=== PATIENT | male | born 1935 | race Caucasian/White ===

== ENCOUNTER 2024-04-17 10:52 | Inpatient (IN) | payer MEDICARE, OTHER, SELFPAY ==
[2024-04-17] VITALS (12 sets, daily range): BP systolic 115–141; BP diastolic 45–62; PULSE 48–92; RESP 14–20; TEMP 36.4–36.7; O2SAT 94–99; BMI 22.8
--- NOTE | ~2024-04-17 | CT_ITS ---
CT cervical spine wo con Ordering provider: Suleiman Dai MD History: . fall . Comparison: None. Technique: CT of the cervical spine was performed without contrast. Sagittal and coronal reformatted images were also obtained and reviewed. Automated exposure control and iterative reconstruction sg hnique were employed. The dose-length product was 244.17 mGy-cm. FINDINGS: VERTEBRAE: No subluxation or acute fracture. The occipital condyles are intact. DISC SPACES: Narrowing of the disc C3-C4, C4-C5 and C6-C7. Multilevel facet joint disease. Multilevel uncovertebral joint osteoarthritic changes. Narrowing of the foramina at the level of C3-C4, C4-C5 and C5-C6. PARASPINOUS SOFT TISSUES: Bilateral carotid atherosclerotic changes. IMPRESSION: No acute osseous abnormality cervical spine. Multilevel degenerative disc disease. Reviewed, dictated and finalized at location A. STRIAL FABRIC CUTTER
--- NOTE | ~2024-04-17 | XR_ITS ---
EXAMINATION: XR knee RT 3V DATE: 04/17/2024 14:03 INDICATION: Right knee pain post fall TECHNIQUE: Anteroposterior, oblique and crosstable lateral views of the right knee were obtained COMPARISON: None. FINDINGS: Alignment is normal. No fracture. Osteoarthritis at the right knee with at least moderate joint spac e narrowing in the medial compartment the severity of which can be underestimated on nonweightbearing imaging. Small enthesophytes at the proximal pole of the patella. No joint effusion/layering lipohem arthrosis. Soft tissues are unremarkable. IMPRESSION: 1. No right knee joint effusion or acute osseous abnormality. 2. 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 Reviewed, dictated and finalized at location B. NG VALIDATOR IMPRESSION: 1. No right knee joint effusion or acute osseous abnormality. 2. 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
--- NOTE | ~2024-04-17 | CT_ITS ---
EXAMINATION: CT chest abdomen pelvis w con DATE: 04/17/2024 15:32 INDICATION: Analyzed weakness. Leukocytosis. TECHNIQUE: Computed tomography (CT) of the chest, abdomen, and pelvis was performed with 100 mL Omnip aque-350 intravenous contrast. Automated exposure control and iterative reconstruction technique were employed. The dose-length product was 754.71 mGy-cm. COMPARISON: None FINDINGS: CHEST CT: Mild emphysema with moderate biapical pleural-parenchymal scarring. There are numerous small nodular groundglass opacities and larger solid nodular opacities in both lungs with dependent predominance in the bilateral lower lobes and to lesser degree in the right middle lobe and inferior anterior segmen t of the right upper lobe consistent with multifocal pneumonia. There is also bibasilar atelectasis a long the diaphragm. Small amount of mucus is seen in the left mainstem bronchus. No pleural effusion. Heart size is normal. Atherosclerotic coronary artery calcifications. No pericardial effusion. Thora cic aorta is normal in caliber with no dissection. No pathologically enlarged thoracic lymphadenopath y. Thoracic dextroscoliosis with bridging osteophytes at multiple levels consistent with diffuse idio pathic skeletal hyperostosis (DISH). There are a few healing right rib fractures. ABDOMEN/PELVIS CT: The gallbladder is dilated to 6.1 cm with multiple tiny gallstones in the dependent gallbladder. Ther e is however no evident gallbladder wall thickening or pericholecystic inflammatory stranding to more specifically suggest acute cholecystitis. Liver, spleen, pancreas, bilateral adrenal glands and righ t kidney are normal. 3.6 cm cyst at the mid left kidney. There is moderate colonic diverticulosis wit h a sigmoid predominance. There is no adjacent inflammatory change to suggest diverticulitis. Small bowel and appendix are normal. Bladder is normal. No abscess or free intraperitoneal gas or fluid. No pathologically enlarged abdominal or pelvic lymphadenopathy. Mild thoracic spondylosis with chronic appearing mild likely physiologic anterior wedging at T11-L1. IMPRESSION: 1. Numerous dependent predominant solid and more groundglass nodular opacities in both lungs with dis tribution and appearance favoring multifocal pneumonia over metastatic disease. Recommend radiologic follow-up to resolution. 2. Cholelithiasis within the dilated gallbladder but without evident wall thickening or pericholecyst ic inflammatory stranding to more specifically suggest acute cholecystitis. Correlate for Renteria sign and with HIDA scan if clinically indicated. 3. Diverticulosis. Reviewed, dictated and finalized at location B. NCED PRACTICE NURSE IMPRESSION: 1. Numerous dependent predominant solid and more groundglass nodular opacities in both lungs with distribution and appearance favoring multifocal pneumonia ov er metastatic disease. Recommend radiologic follow-up to resolution. 2. Cholelithiasis within the dilated gallbladder but without evident wall thick ening or pericholecystic inflammatory stranding to more specifically suggest ac darcy cholecystitis. Correlate for Renteria sign and with HIDA scan if clinically i ndicated. 3. Diverticulosis.
--- NOTE | ~2024-04-17 | XR_ITS ---
EXAMINATION: XR ribs RT 2V w CXR 2V DATE: 04/17/2024 15:11 INDICATION: Right rib pain. Shortness of breath. Fall. TECHNIQUE: Frontal and lateral views of the chest and 2 views on 4 radiograph of the right ribs were obtained. COMPARISON: None. FINDINGS: CHEST TWO VIEWS: A calcified right lung nodule is consistent with old granulomatous disease. There ar e airspace opacities in the lower lung zones. No pleural effusion or pneumothorax. The heart size is normal. There is mild chronic anterior wedging of multiple lumbar vertebral bodies. RIGHT RIBS: There are old healed right rib fractures. IMPRESSION: 1. Airspace opacities in the lower lung zones, consistent with atelectasis/scarring versus pneumonia. 2. No rib fracture. Reviewed, dictated and finalized at location A. NEERING DEPARTMENT CHAIR IMPRESSION: 1. Airspace opacities in the lower lung zones, consistent with atelectasis/scar ring versus pneumonia. 2. No rib fracture.
--- NOTE | ~2024-04-17 | CT_ITS ---
EXAMINATION: CT brain wo con DATE: 04/17/2024 11:55 INDICATION: Fall. TECHNIQUE: Computed tomography (CT) of the head was performed without intravenous contrast. The mA wa s adjusted according to patient size. Iterative reconstruction technique was employed. The dose-lengt h product was 605.33 mGy-cm. COMPARISON: None FINDINGS: There are scattered areas of low attenuation in the cerebral white matter, which is within normal limits for the patient's age. There is a small old infarct in the left frontal lobe deep white matter. There is no intracranial hemorrhage, acute infarction, or abnormal intracranial mass lesion. The ventricles are normal in size. There is mucosal thickening in the paranasal sinuses. There are l ikely changes of ocular lens replacement surgeries. The mastoid air cells are normal. IMPRESSION: 1. 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 Reviewed, dictated and finalized at location A. CIPAL DATABASE DEVELOPER
--- NOTE | ~2024-04-17 | XR_ITS ---
HISTORY: fall, tailbone pain COMPARISON: None TECHNIQUE: 2 views of the sacrum/coccyx were performed FINDINGS: Diffuse bony demineralization and significant degenerative disease is identified for which cross-sect ional imaging is recommended for further evaluation. IMPRESSION: Limited examination secondary to advanced age and bone density for which cross-sectional imaging is recommended (if not already ordered) Reviewed, dictated and finalized at location A. ASSEMBLER
--- NOTE | 2024-04-17 13:47 | ED_ITS ---
HPI - Fall General Chief Complaint: Fall Stated Complaint: fall lay on floor 6 hours Time Seen by Provider: 04/17/24 13:06 Source: patient, family and RN notes reviewed Mode of arrival: EMS Limitations: no limitations History of Present Illness HPI Narrative: Patient presents with report of right knee pain after falling last night. Patient lives by himself recently after his was placed in nursing given her declining condition. He has declined as well per his son who notes that he has had recurrent falls including a few weeks ago, last week, and yesterday. Patient denies any loss of consciousness. He has been short of breath but denies chest pain. He does note some when he initially calls hip pain although he is pointing to his lateral chest/ribs. He had been complaining of pain in this area after falling a few weeks ago but he did not present to hospital at that time. Patient is complaining of being thirsty and having a dry mouth. He laid on the floor overnight because he states he was in too much pain as well as too weak to get up. Estimated time on the floor was approximately 6 hours. He was found this morning. He has noticed some swelling in his bilateral legs over the past 24 hours. He is also complaining of tailbone pain although he believes that he has an infection there. He also has a skin tear on the elbow. He states he was trying to go to the bathroom at the time. Patient has less upper body strength that he used to. He denies hitting his head. It is reported that he has not been taking anticoagulation but it is unclear whether he was prescribed this previously. Patient was using a walker at the time but he states that both legs gave out. Per patient's son, patient had an appointment coming up on May 17, [address] Alves, orthopedic surgery regarding bilateral knee pain/issues although has never seen this physician before. Related Data Home Medications ?Medication ?Instructions ?Recorded ?Confirmed ?Last Taken ?Type losartan 50 mg tablet 50 mg PO DAILY 04/17/24 04/17/24 Unknown History Allergies Allergy/AdvReac Type Severity Reaction Status Date / Time shrimp Allergy Nausea and Verified 04/17/24 11:03 Vomiting iodine AdvReac Nausea and Verified 04/17/24 17:08 Vomiting [facility] Past Medical History Medical History (Updated 04/17/24 @ 22:46 by Nataliia Duncan PA-C) Hyperlipidemia Hypertension Coronary artery disease Cancer, epiglottis status post resection and radiation Surgical History Surgical History (Updated 04/17/24 @ 22:42 by Nataliia Duncan PA-C) History of cataract extraction History of throat surgery resection of malignancy of epiglottis Family History Family History Father Myocardial infarct Mother Pneumonia Social History Social History (Updated 04/17/24 @ 22:42 by Nataliia Duncan PA-C) Social History: Surrogate medical decision maker: Ronnie Evans, spouse. Code status: Full code. Smoking packs per day: 2 Smoking cigarettes per day: 40.0 Years smoked: 50 Smoking pack-years: 100.00 Smoking status: Former smoker Alcohol intake: never Substance use: never Do You Feel Safe in your Home?: No Lack of Transportation: No Lack of Food: Never True Current Housing: I Have Housing Concerned About Future Housing: No Difficulty Paying Gas/Electric Bills: No Difficulty Paying for Meds: No Currently Unemployed: No Education: High School Diploma/GED Difficulty w/ Childcare or Family Care: No Living arrangements: alone Spiritual care concerns: No Exam 2 Narrative: GENERAL: Well-appearing, well-nourished, and in no acute distress. HEAD: Normocephalic, atraumatic. EYES: Non injected, non icteric ENT: Nares clear, no rhinorrhea or epistaxis. Dry mucous membranes. NECK: Supple. CHEST: Speaking in full sentences. No respiratory distress. HEART: Regular rate and rhythm. . ABDOMEN: Soft, nondistended. No tenderness to palpation. Renteria sign negative. EXTREMITIES: Normal range of motion. 1+ bilateral lower extremity edema. Skin tear on the left elbow/forearm. No marked effusion of bilateral knees. SKIN: Warm, dry. Stage II sacral decubitus ulcer. Dry skin elsewhere, flaky. NEURO: No focal deficits. Alert and oriented x3. PSYCH: Normal mood and affect. Course Vital Signs Vital signs: Vital Signs Temperature 97.6 F 04/17/24 10:56 Pulse Rate 80 04/17/24 10:56 Respiratory Rate 18 04/17/24 10:56 Blood Pressure 119/46 L 04/17/24 10:56 Pulse Oximetry 94 04/17/24 10:56 Oxygen Delivery Room Air 04/17/24 10:56 Temperature 97.9 F 04/18/24 08:00 Pulse Rate 77 04/18/24 08:00 Respiratory Rate 16 04/18/24 08:00 Blood Pressure 138/44 L 04/18/24 08:00 Pulse Oximetry 98 04/18/24 08:00 Oxygen Delivery Nasal Cannula 04/18/24 03:50 Oxygen Flow Rate 2 04/18/24 03:50 MDM - Fall MDM Narrative Medical decision making narrative: Patient presents after a fall occurring last night after which he laid on the floor for approximately 6 hours. He is complaining of right knee pain. In the emergency department he is afebrile with acceptable vital signs. The diastolic blood pressure is low but the mean arterial pressure is 70 mmHg and blood pressure is improved on repeat assessment. 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 Although patient has lower extremity edema, he appears very dry and dehydrated on exam. Will give 1 L IV fluid bolus in addition acetaminophen for pain. CPK slightly elevated although not to a degree to suggest of rhabdomyolysis. Unable to obtain ortho stats given patient is 2 weeks to move his legs in bed. Therefore, also unable to perform assessment of ability to walk. For this reason, he will require admission for PT/OT evaluation and possible placement. Patient has a marked white count greater than 43,000. Will proceed with CT imaging chest abdomen pelvis. Also has a normocytic anemia and thrombocytosis, no prior for comparison. He has a slight azotemia although creatinine is normal. BNP elevated, no prior for comparison. Concern for acute versus acute on chronic heart failure. Only active medication per review of home medication database is losartan. Patient has evidence of an NSTEMI based on elevated troponin. A 3 hour troponin level and aspirin ordered. Patient has an allergy listed to iodine and shrimp both of which cause nausea and vomiting however states that he has received CT imaging contrast before. He has a multifocal pneumonia. There is questionable finding regarding the gallbladder however he has no abdominal pain including Renteria sign negative. Will start ceftriaxone and azithromycin. Urinalysis without concern for infection. Troponin remains elevated but down trending. Discussed the results of patient's workup thus far with him as well as his grandson who has now arrived at bedside (from out of town, the [place] area). Verifies understanding of the plan to be admitted and that he may have rehabilitation needs. He does stated this time that he has noticed that he was short of breath today. Denies any allergies to any antibiotics. Patient discussed with on-call hospitalist CARLOTA Marin. Will be IMU bed given elevated troponin. Patient confirms code status is full code in that he would want resuscitation attempted, although if he lived/was brought back, would not want to live as a vegetable. Differential Diagnosis Differential diagnosis: Likely other (Deconditioning, generalized weakness, acute viral syndrome, acute heart failure, fracture/dislocation, rhabdomyolysis, electrolyte abnormalities, intracranial hemorrhage, pneumonia, rib fracture) Medical Records Attestation: I reviewed the patient's medical records. Medical records narrative: Attempted to but no prior record in the EMR Lab Data Attestation: I reviewed the patient's lab results. 04/18/24 04:29 04/18/24 04:29 Labs: Lab Results 04/17/24 04/17/24 04/17/24 Range/Units 13:52 15:52 16:42 WBC 43.8 H (4.5-10.0) K/mm3 RBC 3.95 L (4.6-6.20) M/mm3 Hgb 11.1 L (14.0-18.0) g/dL Hct 35.9 L (42.0-52.0) % MCV 90.9 (80-100) fl MCH 28.1 (26-34) pg MCHC 30.9 L (32-36) g/dl RDW 15.1 H (11.5-14.5) % Plt Count 389 H (150-375) k/mm3 MPV 10.9 H (7.4-10.4) fl Immature Gran % (Auto) Not Reportable Neut % (Auto) Not Reportable Lymph % (Auto) Not Reportable [place] % (Auto) Not Reportable Eos % (Auto) Not Reportable Baso % (Auto) Not Reportable Lymph # (Auto) Not Reportable [place] # (Auto) Not Reportable Eos # (Auto) Not Reportable Baso # (Auto) Not Reportable Abs Immat Gran (auto) Not Reportable Absolute Neuts (auto) Not Reportable Absolute Nucleated RBC Not Reportable Total Counted 100 Neutrophils % (Manual) 85 H (46-73) % Band Neutrophils % 10 H (0-6) % Monocytes % (Manual) 3 (3-9) % Basophils % (Manual) 2 H (0-1) % Nucleated RBC % Not Reportable Abs Neuts (Manual) 41.61 H (1.3-6.7) K/mm3 Abs Monocytes (Manual) 1.31 H (0.1-0.90) K/mm3 Abs Basophils (Manual) 0.87 H (0.0-0.1) K/mm3 Platelet Estimate Slightly increased (Adequate) Hypochromasia 1+ Anisocytosis 2+ Schistocytes None seen D-Dimer 2.46 H (<0.48) ug/mL Sodium 138 (137-145) mmol/L Potassium 4.0 (3.4-5.0) mmol/L Chloride 99 (98-107) mmol/L Carbon Dioxide 32 H (22-30) mmol/L Anion Gap 7 (4-12) mmol/L BUN 25 H (9-20) mg/dL Creatinine 0.57 L (0.7-1.3) mg/dL Estim Creat Clear Calc Not Reportable Estimated GFR > 60 (59 - ) Glucose 100 (65-110) mg/dL Lactic Acid 1.2 (0.7-2.0) mmol/L Calcium 9.2 (8.4-10.2) mg/dL Magnesium 2.0 (1.6-2.3) mg/dL Total Bilirubin 1.3 (0.2-1.3) mg/dL AST 41 (17-59) U/L ALT 23 (6-50) U/L Alkaline Phosphatase 95 (38-126) U/L Total Creatine Kinase 308 H (55-170) U/L Troponin I 0.065 H* (0.000-0.034) ng/mL NT-Pro-B Natriuret Pep 4060 H (19.9-100) pg/mL Total Protein 7.0 (6.3-8.2) g/dL Albumin 3.6 (3.5-5.1) g/dL Urine Color Dark yellow (Yellow) Urine Appearance Cloudy H (Clear) Urine pH 5.5 (5.0-9.0) Ur Specific [place] 1.030 (1.001-1.035) Urine Protein 2+ H (Negative) mg/dL Urine Glucose (UA) Negative (Negative) mg/dL Urine Ketones Trace H (Negative) mg/dL Ur Blood (Man) Trace (Negative) Urine Nitrate Negative (Negative) Urine Bilirubin 1+ H (Negative) Urine Urobilinogen 1.0 (<2.0) mg/dL Leukocyte Esterase Rfl Negative (Negative) MARIA ISABEL/UL Urine RBC 11-20 H (0-2) /hpf Urine WBC 0-5 (0-3) /hpf Ur Squamous Epith Cells Occasional (Few) /hpf Urine Bacteria None seen /hpf Urine Casts 11-20 Hyaline Casts Present (None) /lpf Influenza A (RT-PCR) Negative (Negative) Influenza B (RT-PCR) Negative (Negative) RSV (RT-PCR) Negative (Negative) SARS-CoV-2 RNA (RT-PCR) Negative (Negative) 04/17/24 Range/Units 16:56 WBC (4.5-10.0) K/mm3 RBC (4.6-6.20) M/mm3 Hgb (14.0-18.0) g/dL Hct (42.0-52.0) % MCV (80-100) fl MCH (26-34) pg MCHC (32-36) g/dl RDW (11.5-14.5) % Plt Count (150-375) k/mm3 MPV (7.4-10.4) fl Immature Gran % (Auto) Neut % (Auto) Lymph % (Auto) [place] % (Auto) Eos % (Auto) Baso % (Auto) Lymph # (Auto) [place] # (Auto) Eos # (Auto) Baso # (Auto) Abs Immat Gran (auto) Absolute Neuts (auto) Absolute Nucleated RBC Total Counted Neutrophils % (Manual) (46-73) % Band Neutrophils % (0-6) % Monocytes % (Manual) (3-9) % Basophils % (Manual) (0-1) % Nucleated RBC % Abs Neuts (Manual) (1.3-6.7) K/mm3 Abs Monocytes (Manual) (0.1-0.90) K/mm3 Abs Basophils (Manual) (0.0-0.1) K/mm3 Platelet Estimate (Adequate) Hypochromasia Anisocytosis Schistocytes D-Dimer (<0.48) ug/mL Sodium (137-145) mmol/L Potassium (3.4-5.0) mmol/L Chloride (98-107) mmol/L Carbon Dioxide (22-30) mmol/L Anion Gap (4-12) mmol/L BUN (9-20) mg/dL Creatinine (0.7-1.3) mg/dL Estim Creat Clear Calc Estimated GFR (59 - ) Glucose (65-110) mg/dL Lactic Acid (0.7-2.0) mmol/L Calcium (8.4-10.2) mg/dL Magnesium (1.6-2.3) mg/dL Total Bilirubin (0.2-1.3) mg/dL AST (17-59) U/L ALT (6-50) U/L Alkaline Phosphatase (38-126) U/L Total Creatine Kinase (55-170) U/L Troponin I 0.055 H* (0.000-0.034) ng/mL NT-Pro-B Natriuret Pep (19.9-100) pg/mL Total Protein (6.3-8.2) g/dL Albumin (3.5-5.1) g/dL Urine Color (Yellow) Urine Appearance (Clear) Urine pH (5.0-9.0) Ur Specific [place] (1.001-1.035) Urine Protein (Negative) mg/dL Urine Glucose (UA) (Negative) mg/dL Urine Ketones (Negative) mg/dL Ur Blood (Man) (Negative) Urine Nitrate (Negative) Urine Bilirubin (Negative) Urine Urobilinogen (<2.0) mg/dL Leukocyte Esterase Rfl (Negative) MARIA ISABEL/UL Urine RBC (0-2) /hpf Urine WBC (0-3) /hpf Ur Squamous Epith Cells (Few) /hpf Urine Bacteria /hpf Urine Casts Hyaline Casts (None) /lpf Influenza A (RT-PCR) (Negative) Influenza B (RT-PCR) (Negative) RSV (RT-PCR) (Negative) SARS-CoV-2 RNA (RT-PCR) (Negative) Imaging Data Attestation: I personally reviewed and interpreted this imaging study as follows: My impression: CT scan is concerning for bilateral multifocal pneumonia on my independent interpretation Radiologist's impression: Impressions Head CT 04/17/24 11:55 IMPRESSION: 1. 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 Cervical Spine CT 04/17/24 11:56 IMPRESSION: No acute osseous abnormality cervical spine. Multilevel degenerative disc disease. Knee X-Ray 04/17/24 14:04 IMPRESSION: 1. No right knee joint effusion or acute osseous abnormality. 2. 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 Ribs w/Chest X-Ray 04/17/24 15:15 IMPRESSION: 1. Airspace opacities in the lower lung zones, consistent with atelectasis/scarring versus pneumonia. 2. No rib fracture. Sacrum and Coccyx X-Ray 04/17/24 15:16 IMPRESSION: Limited examination secondary to advanced age and bone density for which cross-sectional imaging is recommended (if not already ordered) Chest/Abdomen/Pelvis CT 04/17/24 15:42 IMPRESSION: 1. Numerous dependent predominant solid and more groundglass nodular opacities in both lungs with distribution and appearance favoring multifocal pneumonia over metastatic disease. Recommend radiologic follow-up to resolution. 2. Cholelithiasis within the dilated gallbladder but without evident wall thickening or pericholecystic inflammatory stranding to more specifically suggest acute cholecystitis. Correlate for Renteria sign and with HIDA scan if clinically indicated. 3. Diverticulosis. ECG Data EKG #1: Attestation: I personally reviewed and interpreted this ECG as follows: ECG completion date: 04/17/24 ECG completion time: 14:22 Prior ECG tracings: not available for review (No prior for comparison) Interpretation: Normal sinus rhythm at a rate of 70 beats per minute. There are frequent premature complexes. In complexes were P-waves are present, it is a prolonged VT interval consistent with a first-degree AV block. QRS 151. QT/QTC 418/451. RBBB given QRS greater [id number]; RSR' M-shaped pattern in V1-V3; wide, slurred S wave in lateral leads (I, aVL, V5-6). Left posterior fascicular block with prolonged QRS duration, rS complexes in leads I and aVF (small R waves and deep S waves), qR complexes in inferior leads, and right axis deviation (inferior leads positive with negative I and aVL. Good R-wave progression across the precordial leads. Questionable T-wave inversion versus biphasic T- wave in V3 however upright and normal in contiguous leads V4.. 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
[2024-04-17] MEDS: ACETAMINOPHEN 325 MG TABLET 650 MG PO (14:07)
--- NOTE | 2024-04-17 14:08 | ECG_ITS ---
Test Date: 2024-04-17 14:22:05 Measurements Intervals [place] Rate: 78 P: 139 DC: 240 QRS: 115 QRSD: 151 T: 119 QT: 418 QTc: 476 Interpretive Statements SINUS RHYTHM WITH FIRST DEGREE AV BLOCK WITH FREQUENT SUPRAVENTRICULAR PREMATURE COMPLEXES RIGHT BUNDLE BRANCH BLOCK [120+ ms QRS DURATION, UPRIGHT V1, 40+ ms S IN I/aVL/V4/V5/V6] LEFT POSTERIOR FASCICULAR BLOCK [QRS AXIS > 109, INFERIOR Q] No previous ECG available for comparison Electronically Signed On 04-17-2024 21:48:14 TELEPHONE [employer] POWER OPERATOR by Courtney Verde M.D.
[2024-04-17] MEDS: SODIUM CHLORIDE 0.9% IV 1,000 ML 999 ML IV CONT (14:19)
[2024-04-17 14:23] LABS: Hematocrit 35.9 % (42.0-52.0); Hemoglobin 11.1 g/dL (14.0-18.0); Mean Corpuscular HGB Conc 30.9 g/dl (32-36); Mean Corpuscular Hemoglobin 28.1 pg (26-34); Mean Corpuscular Volume 90.9 fl (80-100); Mean Platelet Volume 10.9 fl (7.4-10.4); Platelet Count Result 389 k/mm3 (150-375); Red Blood Count 3.95 M/mm3 (4.6-6.20); Red Cell Distribution Width 15.1 % (11.5-14.5); White Blood Count 43.8 K/mm3 (4.5-10.0)
[2024-04-17 14:34] LABS: Alanine Aminotransferase 23 U/L (6-50); Albumin Level 3.6 g/dL (3.5-5.1); Alkaline Phosphatase 95 U/L (38-126); Anion Gap 7 mmol/L (4-12); Aspartate Amino Transferase 41 U/L (17-59); Bilirubin,Total 1.3 mg/dL (0.2-1.3); Blood Urea Nitrogen 25 mg/dL (9-20); Calcium 9.2 mg/dL (8.4-10.2); Carbon Dioxide 32 mmol/L (22-30); Chloride 99 mmol/L (98-107); Creatine Kinase 308 U/L (55-170); Estimated Glomerular Filt Rate > 60; Glucose 100 mg/dL (65-110); Sodium 138 mmol/L (137-145)
[2024-04-17 14:41] LABS: NT Pro B Type Natriuretic Pept 4060 pg/mL (19.9-100)
[2024-04-17 14:47] LABS: Band Neutrophils Percent 10 % (0-6); Basophils Absolute Manual 0.87 K/mm3 (0.0-0.1); Basophils Percent Manual 2 % (0-1); Monocytes Absolute Manual 1.31 K/mm3 (0.1-0.90); Monocytes Percent Manual 3 % (3-9); Neutrophils Absolute Manual 41.61 K/mm3 (1.3-6.7); Neutrophils Percent Manual 85 % (46-73); Total Cells Counted 100
[2024-04-17 14:48] LABS: Anisocytosis 2+; Platelet Estimate Slightly Increased (Adequate)
[2024-04-17 14:49] LABS: Hypochromasia 1+; Schistocytes None Seen
[2024-04-17 15:15] LABS: Troponin I 0.065 ng/mL (0.000-0.034)
[2024-04-17] MEDS: ASPIRIN 81 MG CHEWABLE TABLET 324 MG PO (15:36)
[2024-04-17 16:13] LABS: Lactic Acid Reflex 1.2 mmol/L (0.7-2.0)
[2024-04-17 16:37] LABS: D Dimer 2.46 ug/mL (<0.48)
[2024-04-17 17:32] LABS: Add Urine Microscopic? YES; Appearance Urine Cloudy (Clear); Bacteria Urine None Seen /hpf; Bilirubin Urine 1+ (Negative); Blood Urine Trace (Negative); Color Urine Dark Yellow (Yellow); Glucose Urine UA Negative (Negative); Hyaline Casts Urine Present /lpf; Ketones Urine Trace mg/dL (Negative); Leukocyte Esterase Ur Negative LEU/UL (Negative); Nitrate Urine Negative (Negative); Protein Urine 2+ mg/dL (Negative); Squamous Epithelial Cell Urine Occasional /hpf (Few); WBC Urine 0-5 /hpf (0-3); pH Urine 5.5 (5.0-9.0)
[2024-04-17 17:39] LABS: Troponin I 0.055 ng/mL (0.000-0.034)
[2024-04-17 18:06] LABS: Influenza A QL RT-PCR Negative (Negative); Influenza B QL RT-PCR Negative (Negative); RSV RNA, RT-PCR Negative (Negative); SARS-CoV-2 RNA PCR Negative (Negative)
[2024-04-17] MEDS: AZITHROMYCIN 500 MG/NS 250 ML 500 MG/250 ML BAG 250 MG IVPB (18:27)
--- NOTE | 2024-04-17 18:35 | P.HP_ITS ---
H&P: HPI History of Present Illness Date/Time: 04/17/24 19:00 Chief Complaint: Fall. Narrative: This is an 88-year-old with coronary artery disease, hypertension, and hyperlipidemia who presented to the emergency department for evaluation after a fall. The patient provides the following history. He lives alone as his was recently placed in a retirement. Son reports that he has declined since that time. The patient tells me that he got up at about 01:00 to use the bathroom and his knees gave out, causing him to fall forward and landed on his knees. He was unable to get himself up but was able to crawl to the front door to unlock it as he knew his children were coming to check on him today. He denies antecedent symptoms prior to the fall and states it was purely mechanical. Specifically he denies feelings of lightheadedness, dizziness, syncope, near syncope, chest pain, and pleuritic pain. He also denies fever, chills, sweats, cold and flu symptoms, abdominal pain, nausea, vomiting, diarrhea, and dysuria. imaging showed findings concerning with pneumonia with further questioning he does report having a mild, nonproductive cough and shortness of breath with exertion the last couple of days. In the ED: He was afebrile on arrival with stable vital signs. Labs were significant for WBC count of 43.8 with 10% bands, hemoglobin 11.1, platelet 389, D-dimer 2.46, BUN 25, creatinine 0.57, total CK 308, troponin 0.065, proBNP 4060. Urinalysis was positive for 2+ protein, trace ketones, 1+ bilirubin, 11 to 20 RBC. He tested negative for influenza, RSV, and COVID. Nasal MRSA screening was negative. 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 Cervical spine CT showed no acute findings and noted multilevel degenerative disc disease. Chest and rib x-ray showed findings consistent with atelectasis/scarring versus pneumonia. CT of the chest, abdomen, and pelvis showed findings suspicious for multifocal pneumonia over metastatic disease and cholelithiasis with a dilated gallbladder but no wall thickening or pericholecystic inflammatory stranding. He was started on azithromycin and ceftriaxone for pneumonia and is being admitted in this setting for further treatment. Review of Systems Review of Systems: 12 systems were reviewed and are negative except for as per HPI. PMFSH Past Medical History Medical History (Updated 04/17/24 @ 22:46 by Nataliia Duncan PA-C) Hyperlipidemia Hypertension Coronary artery disease Cancer, epiglottis status post resection and radiation Surgical History Surgical History (Updated 04/17/24 @ 22:42 by Nataliia Duncan PA-C) History of cataract extraction History of throat surgery resection of malignancy of epiglottis Family History Family History Father Myocardial infarct Mother Pneumonia Social History Social History (Updated 04/17/24 @ 22:42 by Nataliia Duncan PA-C) Social History: Surrogate medical decision maker: Ronnie Evans, spouse. Code status: Full code. Smoking packs per day: 2 Smoking cigarettes per day: 40.0 Years smoked: 50 Smoking pack-years: 100.00 Smoking status: Former smoker Alcohol intake: never Substance use: never Do You Feel Safe in your Home?: No Lack of Transportation: No Lack of Food: Never True Current Housing: I Have Housing Concerned About Future Housing: No Difficulty Paying Gas/Electric Bills: No Difficulty Paying for Meds: No Currently Unemployed: No Education: High School Diploma/GED Difficulty w/ Childcare or Family Care: No Living arrangements: alone Spiritual care concerns: No Meds Home Medications and Allergies Home Medications ?Medication ?Instructions ?Recorded ?Confirmed ?Type losartan 50 mg tablet 50 mg PO DAILY 04/17/24 04/17/24 History Allergies Allergy/AdvReac Type Severity Reaction Status Date / Time shrimp Allergy Nausea and Verified 04/17/24 11:03 Vomiting iodine AdvReac Nausea and Verified 04/17/24 17:08 Vomiting Vital Signs Vital Signs - 24 hr 04/17/24 10:56 04/17/24 12:30 04/17/24 14:00 Temperature 97.6 F Pulse Rate 80 82 77 Respiratory Rate 18 17 20 Blood Pressure 119/46 L 131/60 120/59 L Pulse Oximetry 94 94 95 Oxygen Delivery Room Air Oxygen Flow Rate 04/17/24 14:30 04/17/24 15:38 04/17/24 17:59 Temperature Pulse Rate 78 73 Respiratory Rate 20 20 Blood Pressure 141/58 H 123/53 L Pulse Oximetry 97 99 97 Oxygen Delivery Nasal Cannula Oxygen Flow Rate 2 04/17/24 17:59 Temperature Pulse Rate 66 Respiratory Rate 15 Blood Pressure 126/52 L Pulse Oximetry 97 Oxygen Delivery Oxygen Flow Rate Exam Narrative: General: Mildly ill-appearing male supine in bed in no acute distress. Weight: 76.4 kg. BMI: 22.8. HEENT: PERRL, EOMI. Sclera anicteric. Tacky mucous membranes. Neck: Supple. Respiratory: Respirations are nonlabored and he is speaking in full sentences. Lung sounds are coarse. Cardiovascular: Regular rate and rhythm with S1-S2. Gastrointestinal: Abdomen is soft, nontender, and nondistended with positive bowel sounds. Skin: Warm and dry. No rash or lesions on limited exam. Stage 2 decubitus ulcer. Extremities: No cyanosis or clubbing. 1+ pretibial edema bilaterally. Peripheral pulses intact. Musculoskeletal: No swelling of the knees. Range of motion intact. Neurological: Alert. Cranial nerves 2-12 are grossly intact. No gross focal deficits to casual conversation. Psychiatric: Pleasant and cooperative with appropriate mood and affect. H&P: Results Labs Labs: Short CBC 04/17/24 Range/Units 13:52 WBC 43.8 H (4.5-10.0) K/mm3 Hgb 11.1 L (14.0-18.0) g/dL Hct 35.9 L (42.0-52.0) % Plt Count 389 H (150-375) k/mm3 BMP 04/17/24 13:52 Sodium 138 Potassium 4.0 Chloride 99 Carbon Dioxide 32 H BUN 25 H Creatinine 0.57 L Glucose 100 Calcium 9.2 Cardiac Enzymes 04/17/24 04/17/24 Range/Units 13:52 16:56 Total Creatine Kinase 308 H (55-170) U/L Troponin I 0.065 H* 0.055 H* (0.000-0.034) ng/mL Liver Function 04/17/24 Range/Units 13:52 Total Bilirubin 1.3 (0.2-1.3) mg/dL AST 41 (17-59) U/L ALT 23 (6-50) U/L Alkaline Phosphatase 95 (38-126) U/L Albumin 3.6 (3.5-5.1) g/dL Urine 04/17/24 Range/Units 16:42 Urine Color Dark yellow (Yellow) Urine Appearance Cloudy H (Clear) Urine pH 5.5 (5.0-9.0) Ur Specific [place] 1.030 (1.001-1.035) Urine Protein 2+ H (Negative) mg/dL Urine Glucose (UA) Negative (Negative) mg/dL Impressions Head CT 04/17/24 11:55 IMPRESSION: 1. 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 Cervical Spine CT 04/17/24 11:56 IMPRESSION: No acute osseous abnormality cervical spine. Multilevel degenerative disc disease. Knee X-Ray 04/17/24 14:04 IMPRESSION: 1. No right knee joint effusion or acute osseous abnormality. 2. 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 Ribs w/Chest X-Ray 04/17/24 15:15 IMPRESSION: 1. Airspace opacities in the lower lung zones, consistent with atelectasis/scarring versus pneumonia. 2. No rib fracture. Sacrum and Coccyx X-Ray 04/17/24 15:16 IMPRESSION: Limited examination secondary to advanced age and bone density for which cross-sectional imaging is recommended (if not already ordered) Chest/Abdomen/Pelvis CT 04/17/24 15:42 IMPRESSION: 1. Numerous dependent predominant solid and more groundglass nodular opacities in both lungs with distribution and appearance favoring multifocal pneumonia over metastatic disease. Recommend radiologic follow-up to resolution. 2. Cholelithiasis within the dilated gallbladder but without evident wall thickening or pericholecystic inflammatory stranding to more specifically suggest acute cholecystitis. Correlate for Renteria sign and with HIDA scan if clinically indicated. 3. Diverticulosis. Assessment and Plan Assessment and plan (1) Multifocal pneumonia: Code(s): J18.9 - Pneumonia, unspecified organism Status: Acute (2) Elevated troponin: Code(s): R79.89 - Other specified abnormal findings of blood chemistry Status: Acute (3) Elevated creatine kinase: Code(s): R74.8 - Abnormal levels of other serum enzymes Status: Acute (4) Fall from ground level: Code(s): W18.30XA - Fall on same level, unspecified, initial encounter Status: Acute (5) Hypertension: Code(s): I10 - Essential (primary) hypertension Status: Acute Plan The patient presented to the emergency department for evaluation after ground level fall early this morning as detailed in HPI. Labs, imaging, EKG, and all reports were personally reviewed. Luckily he did not sustain any significant injuries and there were no acute findings on imaging. He does have evidence of multifocal pneumonia and has been started on azithromycin and ceftriaxone. Attempt sputum for culture. Check Legionella pneumococcal antigens as well as mycoplasma IgM. Once feeling better he will need PT / OT and may very well benefit from rehab before returning home. Troponin was mildly elevated though his EKG does not show any concerning ST segment changes. Continue to trend and obtain echocardiogram; he has no complaints of chest pain whatsoever. Total CK is also up a little bit, likely due to the fall and lying on the floor, but is not high enough to be diagnosis of rhabdomyolysis. Repeat in a.m.. Blood pressures were reviewed and they are stable. His home medications will be reviewed and resumed as appropriate. Findings and treatment plan were discussed with the patient. Questions were solicited and answered to satisfaction. The patient's medical management will be taken over by the hospitalist team in a.m. Quality VTE Prophylaxis VTE prophylaxis: pharmacologic ordered Hospitalist [facility] Advance Care Plan I have confirmed that the patient's Advanced Care Plan is present, code status is documented, or surrogate decision maker is listed in patient medical record.: Yes Medication Reconciliation I have utilized all available resources to obtain, update and review the patients current medications (includes all prescriptions, OTC, herbals, cannabis, and nutritional supplements).: Yes
[2024-04-17 19:14] LABS: MRSA (PCR) NOT DETECTED (NOT DETECTE)
[2024-04-17] MEDS: LACTATED RINGERS 1,000 ML 125 ML IV CONT ×2 (20:06→23:00)
--- NOTE | 2024-04-17 20:53 | ADMGEN ---
This patient, Haris Evans, was admitted to IMU Room 204-01. Patient/family oriented to hospital policies and general routines including ID bracelet, bed and alarms, visiting hours, pain management, procedures, bathroom and other care routines, personal items, smoking policy, room service/diet, and visiting hours. Information on how to activate the Rapid Response Team has been discussed. Patient/Family are encouraged to report perceived risks to care and to ask questions if they do not understand what they are told or what they should do.
[2024-04-18] VITALS (20 sets, daily range): BP systolic 102–138; BP diastolic 35–67; PULSE 56–102; RESP 14–20; TEMP 36.5–37; O2SAT 93–99; BMI 23.1
[2024-04-18 05:13] LABS: Hematocrit 31.9 % (42.0-52.0); Hemoglobin 9.7 g/dL (14.0-18.0); Mean Corpuscular HGB Conc 30.4 g/dl (32-36); Mean Corpuscular Volume 92.2 fl (80-100); Mean Platelet Volume 10.5 fl (7.4-10.4); Platelet Count Result 322 k/mm3 (150-375); Red Blood Count 3.46 M/mm3 (4.6-6.20); Red Cell Distribution Width 15.2 % (11.5-14.5); White Blood Count 27.6 K/mm3 (4.5-10.0)
[2024-04-18 05:31] LABS: Alanine Aminotransferase 18 U/L (6-50); Albumin Level 2.8 g/dL (3.5-5.1); Alkaline Phosphatase 80 U/L (38-126); Anion Gap 3 mmol/L (4-12); Aspartate Amino Transferase 33 U/L (17-59); Bilirubin,Total 0.7 mg/dL (0.2-1.3); Blood Urea Nitrogen 25 mg/dL (9-20); Calcium 8.3 mg/dL (8.4-10.2); Carbon Dioxide 31 mmol/L (22-30); Chloride 103 mmol/L (98-107); Creatine Kinase 91 U/L (55-170); Estimated CRCL calculation 80 ml/min; Estimated Glomerular Filt Rate > 60; Glucose 91 mg/dL (65-110); Magnesium 1.9 mg/dL (1.6-2.3); Potassium 3.8 mmol/L (3.4-5.0); Sodium 137 mmol/L (137-145)
[2024-04-18 06:02] LABS: Band Neutrophils Percent 3 % (0-6); Lymphocytes Absolute Manual 0.55 K/mm3 (1.1-4.5); Neutrophils Absolute Manual 27.04 K/mm3 (1.3-6.7); Neutrophils Percent Manual 95 % (46-73); Platelet Estimate Adequate (Adequate); Total Cells Counted 100
[2024-04-18 06:03] LABS: Anisocytosis 1+; Large Platelets Present; Schistocytes None Seen
[2024-04-18] MEDS: LACTATED RINGERS 1,000 ML 125 ML IV CONT ×2 (06:15→15:37)
--- NOTE | 2024-04-18 10:23 | P.PNIM_ITS ---
Progress Note: A&P Assessment and Plan (1) Multifocal pneumonia: Code(s): J18.9 - Pneumonia, unspecified organism Status: Acute (2) Elevated troponin: Code(s): R79.89 - Other specified abnormal findings of blood chemistry Status: Acute (3) Elevated creatine kinase: Code(s): R74.8 - Abnormal levels of other serum enzymes Status: Acute (4) Fall from ground level: Code(s): W18.30XA - Fall on same level, unspecified, initial encounter Status: Acute (5) Hypertension: Code(s): I10 - Essential (primary) hypertension Status: Acute Plan This is an 88-year-old male who presented to the ED after a fall. He has history of recurrent falls that started recently. He reports that he got up at about 1:00 a.m. to use the bathroom in his legs gave out causing him to fall forward and landed on his knees. He was unable to get himself up but able to crawl to the front door to unlock as he knew his children were coming to check on him. He denied any antecedent symptoms. No loss of consciousness. He states his legs gave away before you fall down. He reports some shortness of breath but no chest pain. He complained of right knee pain. After of fall last night he laid on the floor overnight as he was not able to get up. Estimated time on the floor was approximately 6 hours. He was found on the floor this morning and was brought to the ED for evaluation. She denied hitting his head. He had bilateral knee issues that he follows with Orthopedic surgery. In the ED: He was afebrile on arrival with stable vital signs. Labs were significant for WBC count of 43.8 with 10% bands, hemoglobin 11.1, platelet 389, D-dimer 2.46, BUN 25, creatinine 0.57, total CK 308, troponin 0.065, proBNP 4060. Urinalysis was positive for 2+ protein, trace ketones, 1+ bilirubin, 11 to 20 RBC. He tested negative for influenza, RSV, and COVID. Nasal MRSA screening was negative. 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 Cervical spine CT showed no acute findings and noted multilevel degenerative disc disease. Chest and rib x-ray showed findings consistent with atelectasis/scarring versus pneumonia. CT of the chest, abdomen, and pelvis showed findings suspicious for multifocal pneumonia over metastatic disease and cholelithiasis with a dilated gallbladder but no wall thickening or pericholecystic inflammatory stranding. He was started on azithromycin and ceftriaxone for pneumonia and is being admitted in this setting for further treatment. Multifocal pneumonia urine antigens ordered. Started on antibiotics. Leukocytosis improving. Influenza RSV COVID swab negative Elevated troponin EKG with nonspecific ST-T changes echo 04/18/2024 EF 55% grade 1 diastolic dysfunction mild MR. Mild TR. 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 Reports hurts in low back. Some cough. Denies any shortness of breath or chest pain. Review of Systems Review of Systems: All systems reviewed & are unremarkable except as noted in HPI and below Exam Narrative: General: Mildly ill-appearing male supine in bed in no acute distress. HEENT: PERRL, EOMI. Sclera anicteric. Tacky mucous membranes. Neck: Supple. Respiratory: Respirations are nonlabored and he is speaking in full sentences. Lung sounds are coarse. Cardiovascular: Regular rate and rhythm with S1-S2. Gastrointestinal: Abdomen is soft, nontender, and nondistended with positive bowel sounds. Skin: Warm and dry. No rash or lesions on limited exam. Stage 2 decubitus ulcer. Extremities: No cyanosis or clubbing. 1+ pretibial edema bilaterally. Peripheral pulses intact. Musculoskeletal: No swelling of the knees. Range of motion intact. Neurological: Alert. Cranial nerves 2-12 are grossly intact. No gross focal deficits to casual conversation. Psychiatric: Pleasant and cooperative with appropriate mood and affect. Objective Data Vital Signs Vital Signs: Vital Signs - 24 hr 04/17/24 10:56 04/17/24 12:30 04/17/24 14:00 Temperature 97.6 F Pulse Rate 80 82 77 Respiratory Rate 18 17 20 Blood Pressure 119/46 L 131/60 120/59 L Pulse Oximetry 94 94 95 Oxygen Delivery Room Air Oxygen Flow Rate 04/17/24 14:30 04/17/24 15:38 04/17/24 17:59 Temperature Pulse Rate 78 73 Respiratory Rate 20 20 Blood Pressure 141/58 H 123/53 L Pulse Oximetry 97 99 97 Oxygen Delivery Nasal Cannula Oxygen Flow Rate 2 04/17/24 17:59 04/17/24 20:24 04/17/24 20:54 Temperature 97.6 F Pulse Rate 66 92 48 L Respiratory Rate 15 14 Blood Pressure 126/52 L 116/57 L 118/45 L Pulse Oximetry 97 96 96 Oxygen Delivery Oxygen Flow Rate 04/17/24 21:02 04/17/24 22:00 04/17/24 23:17 Temperature 98.0 F Pulse Rate 83 79 73 Respiratory Rate 14 14 Blood Pressure 115/62 Pulse Oximetry 96 98 Oxygen Delivery Nasal Cannula Oxygen Flow Rate 2 04/17/24 23:47 04/18/24 00:00 04/18/24 02:00 Temperature Pulse Rate 61 65 99 Respiratory Rate 14 Blood Pressure Pulse Oximetry 98 Oxygen Delivery Nasal Cannula Oxygen Flow Rate 2 04/18/24 03:40 04/18/24 03:50 04/18/24 04:00 Temperature 97.7 F Pulse Rate 100 93 71 Respiratory Rate 20 20 Blood Pressure 124/50 L Pulse Oximetry 99 99 Oxygen Delivery Nasal Cannula Oxygen Flow Rate 2 04/18/24 06:00 04/18/24 08:00 04/18/24 08:32 Temperature 97.9 F Pulse Rate 79 77 Respiratory Rate 16 Blood Pressure 138/44 L Pulse Oximetry 98 Oxygen Delivery Nasal Cannula Oxygen Flow Rate 2 Intake/Output Intake/Output: Intake & Output 04/15/24 04/16/24 04/17/24 04/18/24 23:59 23:59 23:59 23:59 Intake Total 1300 1120 Output Total 350 Balance 1300 770 Meds/Results Medications: Active Medications Generic Name Dose Route Start Last Admin Trade Name Freq PRN Reason Stop Dose Admin Acetaminophen 650 mg 04/17/24 17:43 Acetaminophen 325 Mg Tablet PO Q4H PRN Mild Pain (1-3) or Fever Enoxaparin Sodium 40 mg 04/18/24 09:00 Enoxaparin 40 Mg/0.4 Ml Syringe SUB-Q DAILY [facility] Ceftriaxone Sodium 1 gm in 50 mls @ 100 mls/hr 04/18/24 18:00 Rocephin 1 Gm/Ns 50 Ml IVPB Q24H OLENA Azithromycin 500 mg in 250 mls @ 250 mls/hr 04/18/24 18:00 Zithromax IVPB Q24H OLENA Lactated Ringer's 1,000 mls @ 125 mls/hr 04/18/24 06:25 04/18/24 06:15 Lr - Lactated Ringers Iv IV CONT 125 mls/hr .Q8H OLENA Administration Losartan Potassium 50 mg 04/18/24 09:00 Losartan Potassium 50 Mg Tablet PO DAILY OLENA Ondansetron HCl 4 mg 04/17/24 17:43 Ondansetron Inj 4 Mg/2 Ml Vial IV PUSH Q4H PRN Nausea Perflutren Lipid Microsphere 0 ml 04/17/24 22:49 Perflutren Lipid Microspheres 1.5 Ml Vial Diluted To 10 Ml Total Volume IV PUSH 04/20/24 22:49 ONCE PRN adequate visualization Protocol Radiology Results: ITS Impressions Head CT 04/17/24 11:55 IMPRESSION: 1. 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 Cervical Spine CT 04/17/24 11:56 IMPRESSION: No acute osseous abnormality cervical spine. Multilevel degenerative disc disease. Knee X-Ray 04/17/24 14:04 IMPRESSION: 1. No right knee joint effusion or acute osseous abnormality. 2. 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 Ribs w/Chest X-Ray 04/17/24 15:15 IMPRESSION: 1. Airspace opacities in the lower lung zones, consistent with atelectasis/scarring versus pneumonia. 2. No rib fracture. Sacrum and Coccyx X-Ray 04/17/24 15:16 IMPRESSION: Limited examination secondary to advanced age and bone density for which cross-sectional imaging is recommended (if not already ordered) Chest/Abdomen/Pelvis CT 04/17/24 15:42 IMPRESSION: 1. Numerous dependent predominant solid and more groundglass nodular opacities in both lungs with distribution and appearance favoring multifocal pneumonia over metastatic disease. Recommend radiologic follow-up to resolution. 2. Cholelithiasis within the dilated gallbladder but without evident wall thickening or pericholecystic inflammatory stranding to more specifically suggest acute cholecystitis. Correlate for Renteria sign and with HIDA scan if clinically indicated. 3. Diverticulosis. Labs Labs: Laboratory Results - last 24 hr 04/17/24 04/17/24 04/17/24 13:52 15:52 16:42 WBC 43.8 H RBC 3.95 L Hgb 11.1 L Hct 35.9 L MCV 90.9 MCH 28.1 MCHC 30.9 L RDW 15.1 H Plt Count 389 H MPV 10.9 H Immature Gran % (Auto) Not Reportable Neut % (Auto) Not Reportable Lymph % (Auto) Not Reportable [place] % (Auto) Not Reportable Eos % (Auto) Not Reportable Baso % (Auto) Not Reportable Lymph # (Auto) Not Reportable [place] # (Auto) Not Reportable Eos # (Auto) Not Reportable Baso # (Auto) Not Reportable Abs Immat Gran (auto) Not Reportable Absolute Neuts (auto) Not Reportable Absolute Nucleated RBC Not Reportable Total Counted 100 Neutrophils % (Manual) 85 H Band Neutrophils % 10 H Lymphocytes % (Manual) Monocytes % (Manual) 3 Basophils % (Manual) 2 H Nucleated RBC % Not Reportable Abs Neuts (Manual) 41.61 H Abs Lymphs (Manual) Abs Monocytes (Manual) 1.31 H Abs Basophils (Manual) 0.87 H Platelet Estimate Slightly increased Large Platelets Hypochromasia 1+ Anisocytosis 2+ Schistocytes None seen D-Dimer 2.46 H Sodium 138 Potassium 4.0 Chloride 99 Carbon Dioxide 32 H Anion Gap 7 BUN 25 H Creatinine 0.57 L Estim Creat Clear Calc Not Reportable Estimated GFR > 60 Glucose 100 Lactic Acid 1.2 Calcium 9.2 Magnesium 2.0 Total Bilirubin 1.3 AST 41 ALT 23 Alkaline Phosphatase 95 Total Creatine Kinase 308 H Troponin I 0.065 H* NT-Pro-B Natriuret Pep 4060 H Total Protein 7.0 Albumin 3.6 Urine Color Dark yellow Urine Appearance Cloudy H Urine pH 5.5 Ur Specific [place] 1.030 Urine Protein 2+ H Urine Glucose (UA) Negative Urine Ketones Trace H Ur Blood (Man) Trace Urine Nitrate Negative Urine Bilirubin 1+ H Urine Urobilinogen 1.0 Leukocyte Esterase Rfl Negative Urine RBC 11-20 H Urine WBC 0-5 Ur Squamous Epith Cells Occasional Urine Bacteria None seen Urine Casts 11-20 Hyaline Casts Present Nasal MRSA (PCR) Influenza A (RT-PCR) Negative Influenza B (RT-PCR) Negative RSV (RT-PCR) Negative SARS-CoV-2 RNA (RT-PCR) Negative 04/17/24 04/17/24 04/18/24 16:56 17:52 04:29 WBC 27.6 H RBC 3.46 L Hgb 9.7 L Hct 31.9 L MCV 92.2 MCH 28.0 MCHC 30.4 L RDW 15.2 H Plt Count 322 MPV 10.5 H Immature Gran % (Auto) Not Reportable Neut % (Auto) Not Reportable Lymph % (Auto) Not Reportable [place] % (Auto) Not Reportable Eos % (Auto) Not Reportable Baso % (Auto) Not Reportable Lymph # (Auto) Not Reportable [place] # (Auto) Not Reportable Eos # (Auto) Not Reportable Baso # (Auto) Not Reportable Abs Immat Gran (auto) Not Reportable Absolute Neuts (auto) Not Reportable Absolute Nucleated RBC Not Reportable Total Counted 100 Neutrophils % (Manual) 95 H Band Neutrophils % 3 Lymphocytes % (Manual) 2.0 L Monocytes % (Manual) Basophils % (Manual) Nucleated RBC % Not Reportable Abs Neuts (Manual) 27.04 H Abs Lymphs (Manual) 0.55 L Abs Monocytes (Manual) Abs Basophils (Manual) Platelet Estimate Adequate Large Platelets Present Hypochromasia Anisocytosis 1+ Schistocytes None seen D-Dimer Sodium 137 Potassium 3.8 Chloride 103 Carbon Dioxide 31 H Anion Gap 3 L BUN 25 H Creatinine 0.59 L Estim Creat Clear Calc 80 Estimated GFR > 60 Glucose 91 Lactic Acid Calcium 8.3 L Magnesium 1.9 Total Bilirubin 0.7 AST 33 ALT 18 Alkaline Phosphatase 80 Total Creatine Kinase 91 Troponin I 0.055 H* NT-Pro-B Natriuret Pep Total Protein 6.0 L Albumin 2.8 L Urine Color Urine Appearance Urine pH Ur Specific [place] Urine Protein Urine Glucose (UA) Urine Ketones Ur Blood (Man) Urine Nitrate Urine Bilirubin Urine Urobilinogen Leukocyte Esterase Rfl Urine RBC Urine WBC Ur Squamous Epith Cells Urine Bacteria Urine Casts Hyaline Casts Nasal MRSA (PCR) Not detected Influenza A (RT-PCR) Influenza B (RT-PCR) RSV (RT-PCR) SARS-CoV-2 RNA (RT-PCR)
[2024-04-18] MEDS: ENOXAPARIN 40 MG/0.4 ML SYRINGE SUB-Q (11:05)
[2024-04-18] MEDS: LOSARTAN POTASSIUM 50 MG TABLET PO (11:06)
[2024-04-18] MEDS: AZITHROMYCIN 500 MG/NS 250 ML 500 MG/250 ML BAG 250 MG IVPB (17:44)
[2024-04-18] MEDS: ACETAMINOPHEN 325 MG TABLET 650 MG PO (17:46)
--- NOTE | 2024-04-18 22:49 | ECHO_ITS ---
Patient Info Name: Haris Evans Age: 88 years : 1935 Gender: Male Ht: 72 in Wt: 170 lbs BSA: 1.98 m2 HR: 79 bpm BP: 124 / 50 mmHg Technical Quality: Fair Exam Date: 04/18/2024 9:58 AM Exam Location: Echo Lab Exam Room: [facility] [place] [facility] [place] Patient Status: Inpatient Admit Date: 04/17/2024 Staff Ordering Physician: Nataliia Duncan PA-C Communication And Outreach Manager: Wendy Ayoub RDCS Attending Provider: Lincoln Bustos MD Referring Physician: Dakota MEEKS; Exam Type: CA echo doppler color flow Study Info Complete two-dimensional, color flow and Doppler transthoracic echocardiogram is performed. Summary 1. Technically difficult study with limited views. 2. Left ventricular chamber dimension is normal. 3. Left ventricular systolic function is normal, estimated at 55-60%. 4. There is mildly increased left ventricular wall thickness. 5. The left ventricular diastolic function is grade I diastolic dysfunction. 6. Right ventricular chamber dimension is severely enlarged. 7. Right ventricular systolic function is normal. 8. Left atrial chamber dimension is moderately enlarged. 9. Right atrial chamber dimension is severely enlarged. 10. There is mild tricuspid valve regurgitation. Left Ventricle Left ventricular chamber dimension is normal. Left ventricular systolic function is normal, estimated at 55-60%. There is mildly increased left ventricular wall thickness. The left ventricular diastolic function is grade I diastolic dysfunction. Right Ventricle Right ventricular chamber dimension is severely enlarged. Right ventricular systolic function is normal. Left Atria Left atrial chamber dimension is moderately enlarged. Right Atria Right atrial chamber dimension is severely enlarged. Atrial Septum Intact interatrial septum visualized by color flow imaging. Aortic Valve The aortic valve is not well visualized. There is no aortic valve stenosis. There is no aortic valve regurgitation. Pulmonic Valve The pulmonic valve is not well visualized. There is trace pulmonic regurgitation. Mitral Valve There is trace mitral valve regurgitation. Tricuspid Valve There is mild tricuspid valve regurgitation. Pericardium/Pleural There is no pericardial effusion. Inferior Vena Cava Inferior vena cava is not well visualized. Aorta The aortic root size at the sinus of Valsalva is normal. Left Ventricular Outflow Tract Name Value Normal LVOT 2D LVOT Diameter 2.1 cm LVOT Doppler LVOT Peak Gradient 5 mmHg LVOT Mean Gradient 3 mmHg LVOT VTI 22 cm LVOT VTI/AV VTI Ratio 0.8 LVOT Stroke Volume 78 ml LVOT CO 7.4 l/min LVOT CI 3.7 l/min/m2 Pulmonic Valve Name Value Normal PV Doppler PV Peak Gradient 7 mmHg Mitral Valve Name Value Normal MV Doppler MV Peak Gradient 6 mmHg MV Mean Gradient 1 mmHg MV Decel [place] 217 cm/s2 MV PHT 108 ms MV Area (PHT) 2.0 cm2 4.0-5.0 MV Area (Cont Eq VTI) 2.3 cm2 MV Diastolic Function MV E Peak Velocity 81 cm/s MV A Peak Velocity 106 cm/s MV E/A 0.8 MV Decel Time 374 ms MV Annular TDI MV E/e' (Septal) 9.5 <=8.0 MV E/e' (Lateral) 8.6 <=8.0 MV E/e' (Average) 9.0 Tricuspid Valve Name Value Normal TV Regurgitation Doppler TR Peak Velocity 308 cm/s TR Peak Gradient 38 mmHg Aortic Valve Name Value Normal AV Doppler AV Peak Velocity 139 cm/s AV Peak Gradient 8 mmHg AV Mean Gradient 4 mmHg AV VTI 28 cm AV Area (Cont Eq VTI) 2.8 cm2 >=3.0 AV Area (Cont Eq [place]) 2.8 cm2 AV Regurgitation 2D LVOT Area 3.6 cm2 Ventricles Name Value Normal LV Dimensions 2D/MM LVID Diastole (2D) 5.3 cm 4.2-5.8 LVID Systole (2D) 3.4 cm 2.5-4.0 LVOT Diameter 2.1 cm LV Fractional Shortening/Ejection Fraction 2D/MM LV Fractional Shortening (2D) 35 % 25-43 LV EF (2D Teicholz) 64 % 52-72 LV Diastolic Volume (4C MOD) 138 ml LV EF (4C MOD) 67 % LV Diastolic Volume (2C MOD) 144 ml LV EF (2C MOD) 58 % LV Diastolic Volume (BP MOD) 144 ml 62-150 LV Diastolic Volume Index (BP MOD) 73 ml/m2 34-74 LV Systolic Volume (BP MOD) 53 ml 21-61 LV Systolic Volume Index (BP MOD) 27 ml/m2 11-31 LV EF (BP MOD) 63 % 52-72 LV Diastolic Length (4C) 8.4 cm LV Systolic Length (4C) 7.1 cm LV Stroke Volume (4C MOD) 93 ml Atria Name Value Normal LA Dimensions LA Volume (4C A-L) 64 ml RA Dimensions RA Area (4C) 25.7 cm2 <=18.0 Report Signatures
[2024-04-19] VITALS (12 sets, daily range): BP systolic 104–150; BP diastolic 60–65; PULSE 52–86; RESP 16–18; TEMP 36.3–36.7; O2SAT 90–98
[2024-04-19] MEDS: LACTATED RINGERS 1,000 ML 125 ML IV CONT (01:33)
[2024-04-19 04:17] LABS: Basophils Absolute Auto 0.1 K/mm3 (0.0-0.1); Basophils Percent Auto 0.6 % (0.2-1.2); Eosinophils Absolute Auto 0.1 K/mm3 (0-0.3); Eosinophils Percent Auto 0.6 % (0-4.4); Hematocrit 30.1 % (42.0-52.0); Hemoglobin 9.3 g/dL (14.0-18.0); Immature Granulocyte Absolute 0.13 K/mm3 (0.00-0.031); Immature Granulocyte Percent A 0.9 % (0-0.5); Lymphocytes Absolute Auto 0.96 K/mm3 (0.9-3.2); Lymphocytes Percent Auto 6.7 % (18.3-44.2); Mean Corpuscular HGB Conc 30.9 g/dl (32-36); Mean Corpuscular Hemoglobin 27.9 pg (26-34); Mean Corpuscular Volume 90.4 fl (80-100); Mean Platelet Volume 10.4 fl (7.4-10.4); Monocytes Absolute Auto 0.8 K/mm3 (0.1-0.6); Monocytes Percent Auto 5.9 % (2.6-8.5); Neutrophils Absolute Auto 12.1 K/mm3 (1.3-6.7); Neutrophils Percent Auto 85.3 % (45.5-73.1); Platelet Count Result 315 k/mm3 (150-375); Red Blood Count 3.33 M/mm3 (4.6-6.20); Red Cell Distribution Width 15.2 % (11.5-14.5); White Blood Count 14.2 K/mm3 (4.5-10.0)
[2024-04-19 04:35] LABS: Alanine Aminotransferase 17 U/L (6-50); Albumin Level 2.4 g/dL (3.5-5.1); Alkaline Phosphatase 74 U/L (38-126); Anion Gap 2 mmol/L (4-12); Aspartate Amino Transferase 25 U/L (17-59); Bilirubin,Total 0.5 mg/dL (0.2-1.3); Blood Urea Nitrogen 26 mg/dL (9-20); Carbon Dioxide 33 mmol/L (22-30); Chloride 102 mmol/L (98-107); Estimated CRCL calculation 90 ml/min; Estimated Glomerular Filt Rate > 60; Glucose 99 mg/dL (65-110); Magnesium 1.8 mg/dL (1.6-2.3); Potassium 3.9 mmol/L (3.4-5.0); Sodium 137 mmol/L (137-145)
--- NOTE | 2024-04-19 08:13 | P.PNIM_ITS ---
Progress Note: A&P Assessment and Plan (1) Multifocal pneumonia: Code(s): J18.9 - Pneumonia, unspecified organism Status: Acute (2) Elevated troponin: Code(s): R79.89 - Other specified abnormal findings of blood chemistry Status: Acute (3) Elevated creatine kinase: Code(s): R74.8 - Abnormal levels of other serum enzymes Status: Acute (4) Fall from ground level: Code(s): W18.30XA - Fall on same level, unspecified, initial encounter Status: Acute (5) Hypertension: Code(s): I10 - Essential (primary) hypertension Status: Acute Plan This is an 88-year-old male who presented to the ED after a fall. He has history of recurrent falls that started recently. He reports that he got up at about 1:00 a.m. to use the bathroom in his legs gave out causing him to fall forward and landed on his knees. He was unable to get himself up but able to crawl to the front door to unlock as he knew his children were coming to check on him. He denied any antecedent symptoms. No loss of consciousness. He states his legs gave away before you fall down. He reports some shortness of breath but no chest pain. He complained of right knee pain. After of fall last night he laid on the floor overnight as he was not able to get up. Estimated time on the floor was approximately 6 hours. He was found on the floor this morning and was brought to the ED for evaluation. She denied hitting his head. He had bilateral knee issues that he follows with Orthopedic surgery. In the ED: He was afebrile on arrival with stable vital signs. Labs were significant for WBC count of 43.8 with 10% bands, hemoglobin 11.1, platelet 389, D-dimer 2.46, BUN 25, creatinine 0.57, total CK 308, troponin 0.065, proBNP 4060. Urinalysis was positive for 2+ protein, trace ketones, 1+ bilirubin, 11 to 20 RBC. He tested negative for influenza, RSV, and COVID. Nasal MRSA screening was negative. 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 Cervical spine CT showed no acute findings and noted multilevel degenerative disc disease. Chest and rib x-ray showed findings consistent with atelectasis/scarring versus pneumonia. CT of the chest, abdomen, and pelvis showed findings suspicious for multifocal pneumonia over metastatic disease and cholelithiasis with a dilated gallbladder but no wall thickening or pericholecystic inflammatory stranding. He was started on azithromycin and ceftriaxone for pneumonia and is being admitted in this setting for further treatment. Multifocal pneumonia urine antigens ordered. Started on antibiotics. Leukocytosis improving. Influenza RSV COVID swab negative. Continue ceftriaxone and azithromycin Elevated troponin EKG with nonspecific ST-T changes echo 04/18/2024 EF 55% grade 1 diastolic dysfunction mild MR. Mild TR. 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 Otherwise no other complaints. Review of Systems Review of Systems: All systems reviewed & are unremarkable except as noted in HPI and below Exam Narrative: General: Mildly ill-appearing male supine in bed in no acute distress. HEENT: PERRL, EOMI. Sclera anicteric. Tacky mucous membranes. Neck: Supple. Respiratory: Respirations are nonlabored and he is speaking in full sentences. Lung sounds are coarse. Cardiovascular: Regular rate and rhythm with S1-S2. Gastrointestinal: Abdomen is soft, nontender, and nondistended with positive bowel sounds. Skin: Warm and dry. No rash or lesions on limited exam. Stage 2 decubitus ulcer. Extremities: No cyanosis or clubbing. 1+ pretibial edema bilaterally. Periphe ral pulses intact. Musculoskeletal: No swelling of the knees. Range of motion intact. Neurological: Alert. Cranial nerves 2-12 are grossly intact. No gross focal deficits to casual conversation. Bilateral knee reflexes equal and symmetrical Psychiatric: Pleasant and cooperative with appropriate mood and affect. Objective Data Vital Signs Vital Signs: Vital Signs - 24 hr 04/18/24 08:32 04/18/24 10:00 04/18/24 11:42 Temperature 98.4 F Pulse Rate 82 76 Respiratory Rate 14 Blood Pressure 128/47 L Pulse Oximetry 98 Oxygen Delivery Nasal Cannula Oxygen Flow Rate 2 04/18/24 12:00 04/18/24 14:00 04/18/24 15:32 Temperature Pulse Rate 85 74 Respiratory Rate Blood Pressure Pulse Oximetry Oxygen Delivery Nasal Cannula Oxygen Flow Rate 2 04/18/24 15:59 04/18/24 16:00 04/18/24 18:00 Temperature 98.3 F Pulse Rate 80 83 82 Respiratory Rate 18 Blood Pressure 102/35 L Pulse Oximetry 93 Oxygen Delivery Oxygen Flow Rate 04/18/24 19:45 04/18/24 20:00 04/18/24 20:30 Temperature 98.6 F Pulse Rate 56 L 78 70 Respiratory Rate 20 20 Blood Pressure 107/50 L Pulse Oximetry 97 97 Oxygen Delivery Nasal Cannula Oxygen Flow Rate 2 04/18/24 22:00 04/18/24 23:25 04/18/24 23:50 Temperature 97.9 F Pulse Rate 72 64 66 Respiratory Rate 16 16 Blood Pressure 122/67 Pulse Oximetry 98 98 Oxygen Delivery Nasal Cannula Oxygen Flow Rate 2 04/19/24 00:00 04/19/24 02:00 04/19/24 03:35 Temperature Pulse Rate 66 67 72 Respiratory Rate 16 Blood Pressure Pulse Oximetry 98 Oxygen Delivery Nasal Cannula Oxygen Flow Rate 2 04/19/24 03:44 04/19/24 04:00 04/19/24 06:00 Temperature 98.0 F Pulse Rate 56 L 73 68 Respiratory Rate 16 Blood Pressure 128/60 Pulse Oximetry 98 Oxygen Delivery Oxygen Flow Rate 04/19/24 07:26 Temperature 98 F Pulse Rate 73 Respiratory Rate 18 Blood Pressure 139/63 Pulse Oximetry 97 Oxygen Delivery Oxygen Flow Rate Intake/Output Intake/Output: Intake & Output 04/16/24 04/17/24 04/18/24 04/19/24 23:59 23:59 23:59 23:59 Intake Total 1300 2720 1050 Output Total 800 400 Balance 1300 1920 650 Meds/Results Medications: Active Medications Generic Name Dose Route Start Last Admin Trade Name Freq PRN Reason Stop Dose Admin Acetaminophen 650 mg 04/17/24 17:43 04/18/24 17:46 Acetaminophen 325 Mg Tablet PO 650 mg Q4H PRN Administration Mild Pain (1-3) or Fever Enoxaparin Sodium 40 mg 04/18/24 09:00 04/18/24 11:05 Enoxaparin 40 Mg/0.4 Ml Syringe SUB-Q 40 mg DAILY OLENA Administration Ceftriaxone Sodium 1 gm in 50 mls @ 100 mls/hr 04/18/24 18:00 04/18/24 17:43 Rocephin 1 Gm/Ns 50 Ml IVPB 100 mls/hr Q24H OLENA Administration Azithromycin 500 mg in 250 mls @ 250 mls/hr 04/18/24 18:00 04/18/24 17:44 Zithromax IVPB 250 mls/hr Q24H OLENA Administration Lactated Ringer's 1,000 mls @ 125 mls/hr 04/18/24 06:25 04/19/24 01:33 Lr - Lactated Ringers Iv IV CONT 125 mls/hr .Q8H OLENA Administration Losartan Potassium 50 mg 04/18/24 09:00 04/18/24 11:06 Losartan Potassium 50 Mg Tablet PO 50 mg DAILY OLENA Administration Ondansetron HCl 4 mg 04/17/24 17:43 Ondansetron Inj 4 Mg/2 Ml Vial IV PUSH Q4H PRN Nausea Perflutren Lipid Microsphere 0 ml 04/17/24 22:49 Perflutren Lipid Microspheres 1.5 Ml Vial Diluted To 10 Ml Total Volume IV PUSH 04/20/24 22:49 ONCE PRN adequate visualization Protocol Radiology Results: ITS Impressions Head CT 04/17/24 11:55 IMPRESSION: 1. 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 Cervical Spine CT 04/17/24 11:56 IMPRESSION: No acute osseous abnormality cervical spine. Multilevel degenerative disc disease. Knee X-Ray 04/17/24 14:04 IMPRESSION: 1. No right knee joint effusion or acute osseous abnormality. 2. 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 Ribs w/Chest X-Ray 04/17/24 15:15 IMPRESSION: 1. Airspace opacities in the lower lung zones, consistent with at electasis/scarring versus pneumonia. 2. No rib fracture. Sacrum and Coccyx X-Ray 04/17/24 15:16 IMPRESSION: Limited examination secondary to advanced age and bone density for which cross-sectional imaging is recommended (if not already ordered) Chest/Abdomen/Pelvis CT 04/17/24 15:42 IMPRESSION: 1. Numerous dependent predominant solid and more groundglass nodular opacities in both lungs with distribution and appearance favoring multifocal pneumonia ove r metastatic disease. Recommend radiologic follow-up to resolution. 2. Cholelithiasis within the dilated gallbladder but without evident wall thickening or pericholecystic inflammatory stranding to more specifically suggest acute cholecystitis. Correlate for Renteria sign and with HIDA scan if clinically indicated. 3. Diverticulosis. Labs Labs: Laboratory Results - last 24 hr 04/19/24 03:39 WBC 14.2 H RBC 3.33 L Hgb 9.3 L Hct 30.1 L MCV 90.4 MCH 27.9 MCHC 30.9 L RDW 15.2 H Plt Count 315 MPV 10.4 Immature Gran % (Auto) 0.9 H Neut % (Auto) 85.3 H Lymph % (Auto) 6.7 L [place] % (Auto) 5.9 Eos % (Auto) 0.6 Baso % (Auto) 0.6 Lymph # (Auto) 0.96 [place] # (Auto) 0.8 H Eos # (Auto) 0.1 Baso # (Auto) 0.1 Abs Immat Gran (auto) 0.13 H Absolute Neuts (auto) 12.1 H Absolute Nucleated RBC 0.000 Nucleated RBC % 0.0 Sodium 137 Potassium 3.9 Chloride 102 Carbon Dioxide 33 H Anion Gap 2 L BUN 26 H Creatinine 0.52 L Estim Creat Clear Calc 90 Estimated GFR > 60 Glucose 99 Calcium 8.0 L Magnesium 1.8 Total Bilirubin 0.5 AST 25 ALT 17 Alkaline Phosphatase 74 Total Protein 5.0 L Albumin 2.4 L
[2024-04-19] MEDS: LOSARTAN POTASSIUM 50 MG TABLET PO (08:36)
[2024-04-19] MEDS: ENOXAPARIN 40 MG/0.4 ML SYRINGE SUB-Q (08:36)
--- NOTE | 2024-04-19 10:10 | PC.NURSE ---
This patient, Haris Evans, was transferred to [[facility] ] on 04/19/24 at 1010. Personal belongings sent with patient. Report given to [AVI Galvan @ 1005 ]. Appropriate documentation sent with patient.
[2024-04-19] MEDS: TAMSULOSIN HCL 0.4 MG CAPSULE PO (11:15)
[2024-04-19] MEDS: AZITHROMYCIN 500 MG/NS 250 ML 500 MG/250 ML BAG 250 MG IVPB (17:27)
[2024-04-19] MEDS: ACETAMINOPHEN 325 MG TABLET 650 MG PO (18:18)
[2024-04-20 06:08] VITALS: BP 128/61; PULSE 59; RESP 17; TEMP 36.3; O2SAT 90
[2024-04-20 06:16] LABS: Basophils Absolute Auto 0.1 K/mm3 (0.0-0.1); Basophils Percent Auto 1.2 % (0.2-1.2); Eosinophils Absolute Auto 0.1 K/mm3 (0-0.3); Eosinophils Percent Auto 1.5 % (0-4.4); Hematocrit 30.6 % (42.0-52.0); Hemoglobin 9.5 g/dL (14.0-18.0); Immature Granulocyte Absolute 0.07 K/mm3 (0.00-0.031); Immature Granulocyte Percent A 0.8 % (0-0.5); Lymphocytes Absolute Auto 0.82 K/mm3 (0.9-3.2); Lymphocytes Percent Auto 9.9 % (18.3-44.2); Mean Corpuscular Hemoglobin 27.9 pg (26-34); Mean Platelet Volume 10.5 fl (7.4-10.4); Monocytes Absolute Auto 0.5 K/mm3 (0.1-0.6); Monocytes Percent Auto 6.5 % (2.6-8.5); Neutrophils Absolute Auto 6.6 K/mm3 (1.3-6.7); Neutrophils Percent Auto 80.1 % (45.5-73.1); Platelet Count Result 322 k/mm3 (150-375); Red Cell Distribution Width 15.1 % (11.5-14.5); White Blood Count 8.3 K/mm3 (4.5-10.0)
[2024-04-20 06:28] LABS: Alanine Aminotransferase 16 U/L (6-50); Albumin Level 2.5 g/dL (3.5-5.1); Alkaline Phosphatase 75 U/L (38-126); Anion Gap 2 mmol/L (4-12); Aspartate Amino Transferase 22 U/L (17-59); Bilirubin,Total 0.6 mg/dL (0.2-1.3); Blood Urea Nitrogen 19 mg/dL (9-20); Carbon Dioxide 34 mmol/L (22-30); Chloride 100 mmol/L (98-107); Estimated CRCL calculation 101 ml/min; Estimated Glomerular Filt Rate > 60; Glucose 101 mg/dL (65-110); Magnesium 1.8 mg/dL (1.6-2.3); Potassium 3.9 mmol/L (3.4-5.0); Sodium 136 mmol/L (137-145)
[2024-04-20 08:00] VITALS: O2SAT 90
[2024-04-20] MEDS: ENOXAPARIN 40 MG/0.4 ML SYRINGE SUB-Q (08:15)
[2024-04-20] MEDS: TAMSULOSIN HCL 0.4 MG CAPSULE PO (08:15)
[2024-04-20] MEDS: LOSARTAN POTASSIUM 50 MG TABLET PO (08:15)
--- NOTE | 2024-04-20 08:21 | PM.IMPN ---
Progress Note: A&P Assessment and Plan (1) Multifocal pneumonia: Code(s): J18.9 - Pneumonia, unspecified organism Status: Acute (2) Elevated troponin: Code(s): R79.89 - Other specified abnormal findings of blood chemistry Status: Acute (3) Elevated creatine kinase: Code(s): R74.8 - Abnormal levels of other serum enzymes Status: Acute (4) Fall from ground level: Code(s): W18.30XA - Fall on same level, unspecified, initial encounter Status: Acute (5) Hypertension: Code(s): I10 - Essential (primary) hypertension Status: Acute Plan This is an 88-year-old male who presented to the ED after a fall. He has history of recurrent falls that started recently. He reports that he got up at about 1:00 a.m. to use the bathroom in his legs gave out causing him to fall forward and landed on his knees. He was unable to get himself up but able to crawl to the front door to unlock as he knew his children were coming to check on him. He denied any antecedent symptoms. No loss of consciousness. He states his legs gave away before you fall down. He reports some shortness of breath but no chest pain. He complained of right knee pain. After of fall last night he laid on the floor overnight as he was not able to get up. Estimated time on the floor was approximately 6 hours. He was found on the floor this morning and was brought to the ED for evaluation. She denied hitting his head. He had bilateral knee issues that he follows with Orthopedic surgery. In the ED: He was afebrile on arrival with stable vital signs. Labs were significant for WBC count of 43.8 with 10% bands, hemoglobin 11.1, platelet 389, D-dimer 2.46, BUN 25, creatinine 0.57, total CK 308, troponin 0.065, proBNP 4060. Urinalysis was positive for 2+ protein, trace ketones, 1+ bilirubin, 11 to 20 RBC. He tested negative for influenza, RSV, and COVID. Nasal MRSA screening was negative. 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 Cervical spine CT showed no acute findings and noted multilevel degenerative disc disease. Chest and rib x-ray showed findings consistent with atelectasis/scarring versus pneumonia. CT of the chest, abdomen, and pelvis showed findings suspicious for multifocal pneumonia over metastatic disease and cholelithiasis with a dilated gallbladder but no wall thickening or pericholecystic inflammatory stranding. He was started on azithromycin and ceftriaxone for pneumonia and is being admitted in this setting for further treatment. Multifocal pneumonia urine antigens ordered. Started on antibiotics. Leukocytosis improving. Influenza RSV COVID swab negative. Continue ceftriaxone and azithromycin. leukocytosis resolved. switch to oral Elevated troponin EKG with nonspecific ST-T changes echo 04/18/2024 EF 55% grade 1 diastolic dysfunction mild MR. Mild TR. Flat trend Fall PT OT to see. plans for rehab placement. 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 remains on 1l oxygen. no fever, chills. no cough Review of Systems Review of Systems: All systems reviewed & are unremarkable except as noted in HPI and below Exam Narrative: General: Mildly ill-appearing male supine in bed in no acute distress. HEENT: PERRL, EOMI. Sclera anicteric. Tacky mucous membranes. Neck: Supple. Respiratory: Respirations are nonlabored and he is speaking in full sentences. Lung sounds are coarse. Cardiovascular: Regular rate and rhythm with S1-S2. Gastrointestinal: Abdomen is soft, nontender, and nondistended with positive bowel sounds. Skin: Warm and dry. No rash or lesions on limited exam. Stage 2 decubitus ulcer. Extremities: No cyanosis or clubbing. 1+ pretibial edema bilaterally. Peripheral pulses intact. Musculoskeletal: No swelling of the knees. Range of motion intact. Neurological: Alert. Cranial nerves 2-12 are grossly intact. No gross focal deficits to casual conversation. Bilateral knee reflexes equal and symmetrical Psychiatric: Pleasant and cooperative with appropriate mood and affect. Objective Data Vital Signs Vital Signs: Vital Signs - 24 hr 04/19/24 11:00 04/19/24 13:55 04/19/24 20:00 Temperature 97.5 F L 97.4 F L Pulse Rate 61 52 L Respiratory Rate 16 16 Blood Pressure 122/60 150/65 H Pulse Oximetry 97 98 98 Oxygen Delivery Nasal Cannula Oxygen Flow Rate 2 04/19/24 22:03 04/20/24 06:08 Temperature 97.5 F L 97.3 F L Pulse Rate 52 L 59 L Respiratory Rate 17 17 Blood Pressure 104/61 128/61 Pulse Oximetry 90 90 Oxygen Delivery Oxygen Flow Rate Intake/Output Intake/Output: Intake & Output 04/17/24 04/18/24 04/19/24 04/20/24 23:59 23:59 23:59 23:59 Intake Total 1300 3020 2288 Output Total 800 975 250 Balance 1300 2220 1313 -250 Meds/Results Medications: Active Medications Generic Name Dose Route Start Last Admin Trade Name Freq PRN Reason Stop Dose Admin Acetaminophen 650 mg 04/17/24 17:43 04/19/24 18:18 Acetaminophen 325 Mg Tablet PO 650 mg Q4H PRN Administration Mild Pain (1-3) or Fever Enoxaparin Sodium 40 mg 04/18/24 09:00 04/20/24 08:15 Enoxaparin 40 Mg/0.4 Ml Syringe SUB-Q 40 mg DAILY OLENA Administration Ceftriaxone Sodium 1 gm in 50 mls @ 100 mls/hr 04/18/24 18:00 04/19/24 17:27 Rocephin 1 Gm/Ns 50 Ml IVPB Infused Q24H OLENA Infusion Azithromycin 500 mg in 250 mls @ 250 mls/hr 04/18/24 18:00 04/19/24 18:27 Zithromax IVPB Infused Q24H OLENA Infusion Losartan Potassium 50 mg 04/18/24 09:00 04/20/24 08:15 Losartan Potassium 50 Mg Tablet PO 50 mg DAILY OLENA Administration Ondansetron HCl 4 mg 04/17/24 17:43 Ondansetron Inj 4 Mg/2 Ml Vial IV PUSH Q4H PRN Nausea Perflutren Lipid Microsphere 0 ml 04/17/24 22:49 Perflutren Lipid Microspheres 1.5 Ml Vial Diluted To 10 Ml Total Volume IV PUSH 04/20/24 22:49 ONCE PRN adequate visualization Protocol Polyethylene Glycol 17 gm 04/19/24 08:31 Polyethylene Glycol 3350 17 Gm Powd.Pack PO BID PRN Constipation Tamsulosin HCl 0.4 mg 04/19/24 10:35 04/20/24 08:15 Tamsulosin Hcl 0.4 Mg Capsule PO 0.4 mg QAM OLENA Administration Radiology Results: ITS Impressions Head CT 04/17/24 11:55 IMPRESSION: 1. 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 Cervical Spine CT 04/17/24 11:56 IMPRESSION: No acute osseous abnormality cervical spine. Multilevel degenerative disc disease. Knee X-Ray 04/17/24 14:04 IMPRESSION: 1. No right knee joint effusion or acute osseous abnormality. 2. 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 Ribs w/Chest X-Ray 04/17/24 15:15 IMPRESSION: 1. Airspace opacities in the lower lung zones, consistent with atelectasis/scarring versus pneumonia. 2. No rib fracture. Sacrum and Coccyx X-Ray 04/17/24 15:16 IMPRESSION: Limited examination secondary to advanced age and bone density for which cross-sectional imaging is recommended (if not already ordered) Chest/Abdomen/Pelvis CT 04/17/24 15:42 IMPRESSION: 1. Numerous dependent predominant solid and more groundglass nodular opacities in both lungs with distribution and appearance favoring multifocal pneumonia over metastatic disease. Recommend radiologic follow-up to resolution. 2. Cholelithiasis within the dilated gallbladder but without evident wall thickening or pericholecystic inflammatory stranding to more specifically suggest acute cholecystitis. Correlate for Renteria sign and with HIDA scan if clinically indicated. 3. Diverticulosis. Labs Labs: Laboratory Results - last 24 hr 04/20/24 05:26 WBC 8.3 RBC 3.40 L Hgb 9.5 L Hct 30.6 L MCV 90.0 MCH 27.9 MCHC 31.0 L RDW 15.1 H Plt Count 322 MPV 10.5 H Immature Gran % (Auto) 0.8 H Neut % (Auto) 80.1 H Lymph % (Auto) 9.9 L [place] % (Auto) 6.5 Eos % (Auto) 1.5 Baso % (Auto) 1.2 Lymph # (Auto) 0.82 L [place] # (Auto) 0.5 Eos # (Auto) 0.1 Baso # (Auto) 0.1 Abs Immat Gran (auto) 0.07 H Absolute Neuts (auto) 6.6 Absolute Nucleated RBC 0.000 Nucleated RBC % 0.0 Sodium 136 L Potassium 3.9 Chloride 100 Carbon Dioxide 34 H Anion Gap 2 L BUN 19 Creatinine 0.46 L Estim Creat Clear Calc 101 Estimated GFR > 60 Glucose 101 Calcium 8.0 L Magnesium 1.8 Total Bilirubin 0.6 AST 22 ALT 16 Alkaline Phosphatase 75 Total Protein 5.0 L Albumin 2.5 L
[2024-04-20] MEDS: AZITHROMYCIN 250 MG TABLET 500 MG PO (09:19)
[2024-04-20] MEDS: AMOXICILLIN/CLAVULANATE K 875-125 MG TAB 1 TABLET PO (09:19)
--- NOTE | 2024-04-20 12:27 | P.DS_ITS ---
DS: Admitting Diagnosis Discharge Date 04/20/2024 Admitting Diagnosis pneumonia DS: Discharge Diagnosis Discharge Diagnosis (1) Multifocal pneumonia: Code(s): J18.9 - Pneumonia, unspecified organism Status: Acute (2) Elevated troponin: Code(s): R79.89 - Other specified abnormal findings of blood chemistry Status: Acute (3) Elevated creatine kinase: Code(s): R74.8 - Abnormal levels of other serum enzymes Status: Acute (4) Fall from ground level: Code(s): W18.30XA - Fall on same level, unspecified, initial encounter Status: Acute (5) Hypertension: Code(s): I10 - Essential (primary) hypertension Status: Acute DS: Summary Hospital Course Hospital Course: This is an 88-year-old male who presented to the ED after a fall. He has history of recurrent falls that started recently. He reports that he got up at about 1:00 a.m. to use the bathroom in his legs gave out causing him to fall forward and landed on his knees. He was unable to get himself up but able to crawl to the front door to unlock as he knew his children were coming to check on him. He denied any antecedent symptoms. No loss of consciousness. He states his legs gave away before you fall down. He reports some shortness of breath but no chest pain. He complained of right knee pain. After of fall last night he laid on the floor overnight as he was not able to get up. Estimated time on the floor was approximately 6 hours. He was found on the floor this morning and was brought to the ED for evaluation. She denied hitting his head. He had bilateral knee issues that he follows with Orthopedic surgery. In the ED: He was afebrile on arrival with stable vital signs. Labs were significant for WBC count of 43.8 with 10% bands, hemoglobin 11.1, platelet 389, D-dimer 2.46, BUN 25, creatinine 0.57, total CK 308, troponin 0.065, proBNP 4060. Urinalysis was positive for 2+ protein, trace ketones, 1+ bilirubin, 11 to 20 RBC. He tested negative for influenza, RSV, and COVID. Nasal MRSA screening was negative. 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 Cervical spine CT showed no acute findings and noted multilevel degenerative disc disease. Chest and rib x-ray showed findings consistent with atelectasis/scarring versus pneumonia. CT of the chest, abdomen, and pelvis showed findings suspicious for multifocal pneumonia over metastatic disease and cholelithiasis with a dilated gallbladder but no wall thickening or pericholecystic inflammatory stranding. He was started on azithromycin and cef triaxone for pneumonia and is being admitted in this setting for further treatment. Multifocal pneumonia urine antigens ordered. Started on antibiotics. Leukocytosis improving. Influenza RSV COVID swab negative. Continue ceftriaxone and azithromycin. leukocytosis resolved. switch to oral and dc to nursing facility Elevated troponin EKG with nonspecific ST-T changes echo 04/18/2024 EF 55% grade 1 diastolic dysfunction mild MR. Mild TR. Flat trend Fall PT OT to see. 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 HEENT: PERRL, EOMI. Sclera anicteric. Tacky mucous membranes. Neck: Supple. Respiratory: Respirations are nonlabored and he is speaking in full sentences. Lung sounds are coarse. Cardiovascular: Regular rate and rhythm with S1-S2. Gastrointestinal: Abdomen is soft, nontender, and nondistended with positive bowel sounds. Skin: Warm and dry. No rash or lesions on limited exam. Stage 2 decubitus ulcer. Extremities: No cyanosis or clubbing. 1+ pretibial edema bilaterally. Peripheral pulses intact. Musculoskeletal: No swelling of the knees. Range of motion intact. Neurological: Alert. Cranial nerves 2-12 are grossly intact. No gross focal deficits to casual conversation. Bilateral knee reflexes equal and symmetrical Psychiatric: Pleasant and cooperative with appropriate mood and affect. DS: Data Data Completed and Pending Labs on day of discharge: Labs from last 24 hours 04/20/24 05:26 WBC 8.3 RBC 3.40 L Hgb 9.5 L Hct 30.6 L MCV 90.0 MCH 27.9 MCHC 31.0 L RDW 15.1 H Plt Count 322 MPV 10.5 H Immature Gran % (Auto) 0.8 H Neut % (Auto) 80.1 H Lymph % (Auto) 9.9 L [place] % (Auto) 6.5 Eos % (Auto) 1.5 Baso % (Auto) 1.2 Lymph # (Auto) 0.82 L [place] # (Auto) 0.5 Eos # (Auto) 0.1 Baso # (Auto) 0.1 Abs Immat Gran (auto) 0.07 H Absolute Neuts (auto) 6.6 Absolute Nucleated RBC 0.000 Nucleated RBC % 0.0 Sodium 136 L Potassium 3.9 Chloride 100 Carbon Dioxide 34 H Anion Gap 2 L BUN 19 Creatinine 0.46 L Estim Creat Clear Calc 101 Estimated GFR > 60 Glucose 101 Calcium 8.0 L Magnesium 1.8 Total Bilirubin 0.6 AST 22 ALT 16 Alkaline Phosphatase 75 Total Protein 5.0 L Albumin 2.5 L Preliminary micro results at discharge 04/17/24 15:52 Blood Culture - Preliminary Blood 04/17/24 15:52 Blood Culture - Preliminary Blood Imaging Radiologist's impression: ITS Impressions Head CT 04/17/24 11:55 IMPRESSION: 1. 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 Cervical Spine CT 04/17/24 11:56 IMPRESSION: No acute osseous abnormality cervical spine. Multilevel degenerative disc disease. Knee X-Ray 04/17/24 14:04 IMPRESSION: 1. No right knee joint effusion or acute osseous abnormality. 2. 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 Ribs w/Chest X-Ray 04/17/24 15:15 IMPRESSION: 1. Airspace opacities in the lower lung zones, consistent with atelectasis/scarring versus pneumonia. 2. No rib fracture. Sacrum and Coccyx X-Ray 04/17/24 15:16 IMPRESSION: Limited examination secondary to advanced age and bone density for which cross-sectional imaging is recommended (if not already ordered) Chest/Abdomen/Pelvis CT 04/17/24 15:42 IMPRESSION: 1. Numerous dependent predominant solid and more groundglass nodular opacities in both lungs with distribution and appearance favoring multifocal pneumonia over metastatic disease. Recommend radiologic follow-up to resolution. 2. Cholelithiasis within the dilated gallbladder but without evident wall thickening or pericholecystic inflammatory stranding to more specifically suggest acute cholecystitis. Correlate for Renteria sign and with HIDA scan if clinically indicated. 3. Diverticulosis. Discharge Plan Discharge Attending physician on discharge: Lincoln Bustos Discharging Clinician: Lincoln Bustos Anticipated Discharge Date/Time: 04/20/24 12:30 Patient Disposition: SNF Activity: as tolerated Diet: heart healthy Patient Instructions: Heart Failure (GEN), High Troponin Levels (GEN) Patient Language: Somali Stand Alone Forms: General Discharge Information, Longterm Discharge Follow-up/Referrals: UNKNOWN,DOCTOR [Primary Care Provider] - 1 Week Discharge Medications: New tamsulosin 0.4 mg Capsule 0.4 mg PO QAM Qty: 30 0RF azithromycin [Zithromax] 250 mg Tablet 500 mg PO DAILY Qty: 2 0RF amoxicillin-pot clavulanate 875-125 mg tablet 1 tablet PO Q12H Qty: 10 0RF Continued losartan 50 mg tablet 50 mg PO DAILY Date of admission: 04/17/24 17:43 Primary Care Provider: UNKNOWN,DOCTOR Admitting Provider: Lincoln Bustos Attending physician on admission: Lincoln Bustos Condition: Stable
[2024-04-20 14:00] VITALS: BP 113/40; PULSE 70; RESP 18; TEMP 36.1; O2SAT 96
[2024-04-20 16:38] LABS: Pneumococcal Antigen Urine NOT DETECTED
[2024-04-21 02:34] LABS: Legionella pneumophila Ag Ur NOT DETECTED
[2024-04-22 19:09] LABS: Mycoplasma IgM Antibody Titer 151 U/mL
== END 2024-04-20 16:42 | DRG 195 ==
LOC: ANHED 13:48 → ANHIMU 20:47 → ANH3MEDSUR 04-19 10:37
PROVIDERS: Physician Assistant; Admitting Provider Internal Medicine; Emergency Provider Student in an Organized Health Care Education/Training Program; Visit Provider Internal Medicine
DX: J18.9 Pneumonia, unspecified organism (principal); E78.5 Hyperlipidemia, unspecified; I25.10 Atherosclerotic heart disease of native coronary artery without angina pectoris; I10 Essential (primary) hypertension; W19.XXXA Unspecified fall, initial encounter; Z91.81 History of falling; Z20.822 Contact with and (suspected) exposure to COVID-19; Z86.73 Personal history of transient ischemic attack (TIA), and cerebral infarction without residual deficits; Z85.21 Personal history of malignant neoplasm of larynx; Z87.891 Personal history of nicotine dependence
CPT/HCPCS: 36415; 70450; 71046; 71100; 71260; 72125; 72220; 73562; 74177; 80053; 81001; 82550; 83605; 83735; 83880; 84484; 85025; 85380; 86738; 87040; 87449; 87637; 87641; 87899; 93005; 93306; 96361; 96374; 97110; 97161; 97166; 97530; 97535; 99285; A9270; J0456; J0696; J1650; J7030; J7120; Q9967

== ENCOUNTER 2024-06-26 11:41 | Outpatient (CLI) | payer MEDICARE, OTHER, SELFPAY ==
--- NOTE | ~2024-06-26 | XR_ITS ---
EXAMINATION: XR chest 2V Exam Date/Time: 06/26/2024 11:51 CDT HISTORY: R06.2 - Wheezing Comparison: X-ray chest and right ribs 04/17/2024; CT CAP 04/17/2024. RESULT: Lines, tubes, and devices: None. Lungs and pleura: Emphysematous change. Biapical pleural thickening. Linear interface in the right l shiv base. Mild bilateral costophrenic angle blunting. Mild subsegmental bibasilar airspace disease. Cardiomediastinal silhouette: Aortic ectasia. Arch calcification. Dilated central pulmonary arteries as can be seen with pulmonary hypertension. Other: No acute osseous or upper abdominal finding. IMPRESSION: Linear right basilar lung interface, may represent scar or small hydropneumothorax. Subsegmental biba silar airspace disease may represent resolving/recurrent or chronic infectious/inflammatory change. S mall bilateral effusions. Results reported telephonically to Dr. Villalobos by Dr. Robles at 4:01 PM on 06/26/2024. Reviewed, dictated and finalized at location K. IMPRESSION: Linear right basilar lung interface, may represent scar or small hydropneumotho rax. Subsegmental bibasilar airspace disease may represent resolving/recurrent or chronic infectious/inflammatory change. Small bilateral effusions. Results reported telephonically to Dr. Villalobos by Dr. Robles at 4:01 PM on 2024.
--- OUTSIDE RECORDS SUMMARY | 2024-06-26 13:44 | XMS_ITS | Continuity of Care Document ---
Author Organization [facility] Address [address] [place] [address] [address] [place] [address] Phone Care Team Providers Care Mainspring Torque Tester Name Role Phone Woods OD, Camilo Unavailable Unavailable Procedures Procedure Date Eye Exam, New Patient Refraction Refraction Advance Directives Directive Yes / No Effective Date File Name No Information Encounters Encounter Description Practice Location Reason(s) For Visit Diagnoses Date Provider Providers Copied on Encounter [facility], [id number] [place] [address] [address], [place], [place], [id number], [place] tel:[phone] [address] [facility] [place] No Information 7-201 0 Woods OD Camilo. [address] [facility] [place] , [address], [place], [address], [place]. tel:[phone] Family History Family Member Type Diagnosis Age At Onset No Information Payers Payer name Insurance type Covered green party ID Authoriza tion(s) Medicare [facility] [id number] [place] [id number] Social History Type Description Quantity Date Captured Comments Sex Male Smoking Status No Information Chief Complaint And Reason For Visit No Information Reason For Referral Reason For Referral No Information History Of Present Illness Encounter Date Complaint History Of Prese nt Illness No Information Functional Status Date Functional Assessmen t No Information Instructions Date Instruction Additional Infor mation No Information Assessments Type Assessment Date No Information Patient Care Teams Name Effective Dates (start - stop) Status Members No Information
== END 2024-06-26 11:42 | disposition home or self-care (01) ==
PROVIDERS: PCP Emergency Medicine; Visit Provider Emergency Medicine
DX: R91.8 Other nonspecific abnormal finding of lung field (principal); R06.2 Wheezing
CPT/HCPCS: 71046

== ENCOUNTER 2024-06-26 17:09 | Emergency (ER) | payer MEDICARE, OTHER, SELFPAY ==
[2024-06-26 17:40] VITALS: BP 131/49; PULSE 74; RESP 15; TEMP 36.4; O2SAT 97
--- NOTE | 2024-06-26 17:40 | ECG_ITS ---
Test Date: 2024-06-26 20:14:23 Measurements Intervals Holiday Rate: 66 P: 0 PA: 0 QRS: 61 QRSD: 130 T: 54 QT: 392 QTc: 414 Interpretive Statements SINUS RHYTHM WITH FIRST DEGREE AV BLOCK WITH FREQUENT PACS RIGHT BUNDLE BRANCH BLOCK [120+ ms QRS DURATION, UPRIGHT V1, 40+ ms S IN I/aVL/V4/V5/V6] Compared to ECG 04/17/2024 14:22:05 NO SIGNIFICANT CHANGES Electronically Signed On 06-27-2024 16:02:13 CDT by Akilah Severino M.D.
--- NOTE | 2024-06-26 17:41 | ED_ITS ---
HPI - Chest Pain General Chief Complaint: Recheck/Abnormal Lab/Rx <Lali Wood APRN - Last Filed: 06/26/24 17:45> Stated Complaint: chest xray didnt look good <Lali Wood APRN - Last Filed: 06/26/24 17:45> Time Seen by Provider: 06/26/24 17:30 <Lali Wood APRN - Last Filed: 06/26/24 17:45> Focused HPI: Patient is an 88-year-old male who presents to the ER following a ?bad chest x-ray. He reports his doctor sent him here for further evaluation. Patient denies chest pain, shortness of breath, recent fevers. His chart indicates a history of Hyperlipidemia, Hypertension, Coronary artery disease, Cancer, epiglottis. He does endorse an ongoing, persistent cough. Patient denies any relevant medical history. GENERAL: Well-appearing, well-nourished, and in no acute distress. HEAD: Normocephalic, atraumatic. CHEST: Diminished bases upon auscultation. ?No respiratory distress. HEART: Regular rate and rhythm.? NEURO: ?Alert and oriented x3. Patient screened in triage and initial orders placed.? ?Additional care and disposition to be based upon?diagnostic testing and treatment. <Lali Wood APRN - Last Filed: 06/26/24 17:45> History of Present Illness HPI narrative: Agree with HPI. Saw PCP today and had abnormal chest x-ray and sent here. He is prescribed Levaquin for pneumonia. Coughing for several days. No fevers or chills. No chest pain. No recent falls. <Slim Castro MD - Last Filed: 06/26/24 21:39> Related Data Home Medications: Home Medications ?Medication ?Instructions ?Recorded ?Confirmed ?Last Taken ?Type losartan 50 mg tablet 50 mg PO DAILY 04/17/24 06/26/24 Unknown History <Lali Wood APRN - Last Filed: 06/26/24 17:45> Allergies/Adverse Reactions: Allergies Allergy/AdvReac Type Severity Reaction Status Date / Time shrimp Allergy Nausea and Verified 06/26/24 17:44 Vomiting iodine AdvReac Nausea and Verified 06/26/24 17:44 Vomiting <Lali Wood APRN - Last Filed: 06/26/24 17:45> Review of Systems 2 Review of Systems: All systems reviewed & are unremarkable except as noted in HPI and below <Slim Castro MD - Last Filed: 06/26/24 21:39> Constitutional: Constitutional: Reports no additional constitutional complaints <Slim Castro MD - Last Filed: 06/26/24 21:39> ENT: Reports nasal congestion and Reports sore throat <Slim Castro MD - Last Filed: 06/26/24 21:39> Cardiovascular: Cardiovascular: Reports no additional cardiovascular complaints <Slim Castro MD - Last Filed: 06/26/24 21:39> Respiratory: Respiratory: Reports no additional respiratory complaints < Slim Castro MD - Last Filed: 06/26/24 21:39> Gastrointestinal: Gastrointestinal: Reports no additional gastrointestinal complaints <Slim Castro MD - Last Filed: 06/26/24 21:39> [facility] Past Medical History Medical History: Medical History Hyperlipidemia Hypertension Coronary artery disease Cancer, epiglottis status post resection and radiation <Lali Wood APRN - Last Filed: 06/26/24 17:45> Surgical History Surgical History: Surgical History History of cataract extraction History of throat surgery resection of malignancy of epiglottis <Lali Wood APRN - Last Filed: 06/26/24 17:45> Family History Family History: Family History Father Myocardial infarct Mother Pneumonia <Lali Wood APRN - Last Filed: 06/26/24 17:45> Social History Social History: Social History Social History: Surrogate medical decision maker: Ronnie Evans, spouse. Code status: Full code. Smoking packs per day: 2 Smoking cigarettes per day: 40.0 Years smoked: 50 Smoking pack-years: 100.00 Smoking status: Former smoker Alcohol intake: never Substance use: never Substance use type: does not use Do You Feel Safe in your Home?: No Lack of Transportation: No Lack of Food: Never True Current Housing: Decline to Answer Concerned About Future Housing: Decline to Answer Difficulty Paying Gas/Electric Bills: Decline to Answer Difficulty Paying for Meds: Decline to Answer Currently Unemployed: Decline to Answer Education: Decline to Answer Difficulty w/ Childcare or Family Care: Decline to Answer Living arrangements: alone Spiritual care concerns: No <Lali Wood APRN - Last Filed: 06/26/24 17:45> Exam 2 Narrative: GENERAL: Chronically ill-appearing, well-nourished, and in no acute distress. HEAD: Normocephalic, atraumatic. ENT: Mucous membranes moist. CHEST: Scattered rhonchi. No respiratory distress. HEART: Regular rate and rhythm. Normal peripheral pulses. ABDOMEN: Soft, nontender, nondistended. EXTREMITIES: Normal range of motion. No edema. SKIN: Warm, dry, no rash. NEURO: Alert and oriented x3. PSYCH: Normal mood and affect. <Slim Castro MD - Last Filed: 06/26/24 21:39> Course Course Emergency Course: Patient received antibiotic prescription from his PCP. Lungs are clear after nebulizer treatment. Discharge with albuterol as he does not have any at home. BnP in acceptable range the patient. Outside x-ray reviewed. <Slim Castro MD - Last Filed: 06/26/24 21:39> Vital Signs Vital signs: Vital Signs Temperature 97.5 F L 06/26/24 17:40 Pulse Rate 74 06/26/24 17:40 Respiratory Rate 15 06/26/24 17:40 Blood Pressure 131/49 L 06/26/24 17:40 Pulse Oximetry 97 06/26/24 17:40 Temperature 97.5 F L 06/26/24 17:40 Pulse Rate 71 06/26/24 20:51 Respiratory Rate 16 06/26/24 20:51 Blood Pressure 131/49 L 06/26/24 17:40 Pulse Oximetry 99 06/26/24 21:19 Oxygen Delivery Room Air 06/26/24 21:19 <Lali Wood APRN - Last Filed: 06/26/24 17:45> Vital Signs Temperature 97.5 F L 06/26/24 17:40 Pulse Rate 74 06/26/24 17:40 Respiratory Rate 15 06/26/24 17:40 Blood Pressure 131/49 L 06/26/24 17:40 Pulse Oximetry 97 06/26/24 17:40 Temperature 97.5 F L 06/26/24 17:40 Pulse Rate 71 06/26/24 20:51 Respiratory Rate 16 06/26/24 20:51 Blood Pressure 131/49 L 06/26/24 17:40 Pulse Oximetry 99 06/26/24 21:19 Oxygen Delivery Room Air 06/26/24 21:19 <Slim Castro MD - Last Filed: 06/26/24 21:39> MDM - Chest Pain Lab Data Result diagrams: 06/26/24 18:20 06/26/24 18:20 <Lali Wood APRN - Last Filed: 06/26/24 17:45> Labs: Lab Results 06/26/24 Range/Units 18:20 WBC 7.7 (4.5-10.0) K/mm3 RBC 3.69 L (4.6-6.20) M/mm3 Hgb 10.0 L (14.0-18.0) g/dL Hct 32.8 L (42.0-52.0) % MCV 88.9 (80-100) fl MCH 27.1 (26-34) pg MCHC 30.5 L (32-36) g/dl RDW 16.9 H (11.5-14.5) % Plt Count 291 (150-375) k/mm3 MPV 9.5 (7.4-10.4) fl Immature Gran % (Auto) 1.2 H (0-0.5) % Neut % (Auto) 65.8 (45.5-73.1) % Lymph % (Auto) 18.6 (18.3-44.2) % [place] % (Auto) 8.4 (2.6-8.5) % Eos % (Auto) 3.9 (0-4.4) % Baso % (Auto) 2.1 H (0.2-1.2) % Lymph # (Auto) 1.42 (0.9-3.2) K/mm3 [place] # (Auto) 0.6 (0.1-0.6) K/mm3 Eos # (Auto) 0.3 (0-0.3) K/mm3 Baso # (Auto) 0.2 H (0.0-0.1) K/mm3 Abs Immat Gran (auto) 0.09 H (0.00-0.031) K/mm3 Absolute Neuts (auto) 5.0 (1.3-6.7) K/mm3 Absolute Nucleated RBC 0.000 (0.0-0.012) K/mm3 Nucleated RBC % 0.0 (0.0-0.2) % PT 14.6 (11.1-14.7) Seconds INR 1.1 APTT 30.5 (22.3-36.8) Seconds Sodium 138 (137-145) mmol/L Potassium 3.7 (3.4-5.0) mmol/L Chloride 100 (98-107) mmol/L Carbon Dioxide 33 H (22-30) mmol/L Anion Gap 5 (4-12) mmol/L BUN 17 (9-20) mg/dL Creatinine 0.54 L (0.7-1.3) mg/dL Estim Creat Clear Calc 82 ml/min Estimated GFR > 60 (59 - ) Glucose 154 H (65-110) mg/dL Calcium 8.7 (8.4-10.2) mg/dL Magnesium 1.6 (1.6-2.3) mg/dL Total Bilirubin 0.4 (0.2-1.3) mg/dL AST 15 L (17-59) U/L ALT 11 (6-50) U/L Alkaline Phosphatase 69 (38-126) U/L Troponin I < 0.012 (0.000-0.034) ng/mL NT-Pro-B Natriuret Pep 1050 H (19.9-100) pg/mL Total Protein 6.0 L (6.3-8.2) g/dL Albumin 3.2 L (3.5-5.1) g/dL <Lali Wood, ANIMAL RIDES MANAGER - Last Filed: 06/26/24 17:45> Lab Results 06/26/24 Range/Units 18:20 WBC 7.7 (4.5-10.0) K/mm3 RBC 3.69 L (4.6-6.20) M/mm3 Hgb 10.0 L (14.0-18.0) g/dL Hct 32.8 L (42.0-52.0) % MCV 88.9 (80-100) fl MCH 27.1 (26-34) pg MCHC 30.5 L (32-36) g/dl RDW 16.9 H (11.5-14.5) % Plt Count 291 (150-375) k/mm3 MPV 9.5 (7.4-10.4) fl Immature Gran % (Auto) 1.2 H (0-0.5) % Neut % (Auto) 65.8 (45.5-73.1) % Lymph % (Auto) 18.6 (18.3-44.2) % [place] % (Auto) 8.4 (2.6-8.5) % Eos % (Auto) 3.9 (0-4.4) % Baso % (Auto) 2.1 H (0.2-1.2) % Lymph # (Auto) 1.42 (0.9-3.2) K/mm3 [place] # (Auto) 0.6 (0.1-0.6) K/mm3 Eos # (Auto) 0.3 (0-0.3) K/mm3 Baso # (Auto) 0.2 H (0.0-0.1) K/mm3 Abs Immat Gran (auto) 0.09 H (0.00-0.031) K/mm3 Absolute Neuts (auto) 5.0 (1.3-6.7) K/mm3 Absolute Nucleated RBC 0.000 (0.0-0.012) K/mm3 Nucleated RBC % 0.0 (0.0-0.2) % PT 14.6 (11.1-14.7) Seconds INR 1.1 APTT 30.5 (22.3-36.8) Seconds Sodium 138 (137-145) mmol/L Potassium 3.7 (3.4-5.0) mmol/L Chloride 100 (98-107) mmol/L Carbon Dioxide 33 H (22-30) mmol/L Anion Gap 5 (4-12) mmol/L BUN 17 (9-20) mg/dL Creatinine 0.54 L (0.7-1.3) mg/dL Estim Creat Clear Calc 82 ml/min Estimated GFR > 60 (59 - ) Glucose 154 H (65-110) mg/dL Calcium 8.7 (8.4-10.2) mg/dL Magnesium 1.6 (1.6-2.3) mg/dL Total Bilirubin 0.4 (0.2-1.3) mg/dL AST 15 L (17-59) U/L ALT 11 (6-50) U/L Alkaline Phosphatase 69 (38-126) U/L Troponin I < 0.012 (0.000-0.034) ng/mL NT-Pro-B Natriuret Pep 1050 H (19.9-100) pg/mL Total Protein 6.0 L (6.3-8.2) g/dL Albumin 3.2 L (3.5-5.1) g/dL <Slim Castro MD - Last Filed: 06/26/24 21:39> Discharge Plan Discharge Clinical Impression: Pneumonia <Lali Wood APRN - Last Filed: 06/26/24 17:45> Patient Disposition: Home, Self-Care <Lali Wood APRN - Last Filed: 06/26/24 17:45> Condition: Stable <Lali Wood APRN - Last Filed: 06/26/24 17:45> Instructions: Antibiotic Form, Bacterial Pneumonia (ED) <Lali Wood APRN - Last Filed: 06/26/24 17:45> Additional Instructions: Please return to the emergency department if you develop severe and persistent chest pain, difficulty breathing, dizziness, leg swelling or if you are coughing up blood as these can be signs of a medical emergency. Please call your doctor for a follow up appointment to determine the need for further testing. <Lali Wood APRN - Last Filed: 06/26/24 17:45> Patient Language: Sudanese <Lali Wood APRN - Last Filed: 06/26/24 17:45> Prescriptions: New albuterol sulfate 90 mcg/actuation HFA aerosol inhaler 4 puff inhalation QID PRN (Reason: shortness of breath or wheezing) Qty: 8.5 0RF No Action benzonatate 100 mg capsule 100 mg PO TID Qty: 21 0RF albuterol sulfate [Ventolin HFA] 90 mcg/actuation HFA aerosol inhaler 1 inh inhalation Q4H PRN (Reason: shortness of breath or wheezing) Qty: 25.5 0RF levofloxacin 500 mg tablet 500 mg PO DAILY 7 Days Qty: 7 0RF losartan 50 mg tablet 50 mg PO DAILY tamsulosin 0.4 mg Capsule 0.4 mg PO QAM Qty: 30 0RF <Lali Wood APRN - Last Filed: 06/26/24 17:45> Follow-up/Referrals: Satinder Villalobos MD [Primary Care Provider] - 1 Week <Lail Wood APRN - Last Filed: 06/26/24 17:45>
[2024-06-26 18:37] LABS: Basophils Absolute Auto 0.2 K/mm3 (0.0-0.1); Basophils Percent Auto 2.1 % (0.2-1.2); Eosinophils Absolute Auto 0.3 K/mm3 (0-0.3); Eosinophils Percent Auto 3.9 % (0-4.4); Hematocrit 32.8 % (42.0-52.0); Immature Granulocyte Absolute 0.09 K/mm3 (0.00-0.031); Immature Granulocyte Percent A 1.2 % (0-0.5); Lymphocytes Absolute Auto 1.42 K/mm3 (0.9-3.2); Lymphocytes Percent Auto 18.6 % (18.3-44.2); Mean Corpuscular HGB Conc 30.5 g/dl (32-36); Mean Corpuscular Hemoglobin 27.1 pg (26-34); Mean Corpuscular Volume 88.9 fl (80-100); Mean Platelet Volume 9.5 fl (7.4-10.4); Monocytes Absolute Auto 0.6 K/mm3 (0.1-0.6); Monocytes Percent Auto 8.4 % (2.6-8.5); Neutrophils Percent Auto 65.8 % (45.5-73.1); Platelet Count Result 291 k/mm3 (150-375); Red Blood Count 3.69 M/mm3 (4.6-6.20); Red Cell Distribution Width 16.9 % (11.5-14.5); White Blood Count 7.7 K/mm3 (4.5-10.0)
[2024-06-26 18:49] LABS: INR 1.1; Prothrombin Time 14.6 Seconds (11.1-14.7)
[2024-06-26 18:50] LABS: Partial Thromboplastin Time 30.5 Seconds (22.3-36.8)
[2024-06-26 18:51] LABS: Alanine Aminotransferase 11 U/L (6-50); Albumin Level 3.2 g/dL (3.5-5.1); Alkaline Phosphatase 69 U/L (38-126); Anion Gap 5 mmol/L (4-12); Aspartate Amino Transferase 15 U/L (17-59); Bilirubin,Total 0.4 mg/dL (0.2-1.3); Blood Urea Nitrogen 17 mg/dL (9-20); Calcium 8.7 mg/dL (8.4-10.2); Carbon Dioxide 33 mmol/L (22-30); Chloride 100 mmol/L (98-107); Estimated CRCL calculation 82 ml/min; Estimated Glomerular Filt Rate > 60; Glucose 154 mg/dL (65-110); Magnesium 1.6 mg/dL (1.6-2.3); Potassium 3.7 mmol/L (3.4-5.0); Sodium 138 mmol/L (137-145)
--- OUTSIDE RECORDS SUMMARY | 2024-06-26 18:52 | XMS_ITS | Clinical Summary ---
Author Organization Unknown Care Team Providers Care Bottom Wheeler Name Role Phone GLADYS PA, CANDICE Unavailable Unavailable CARMENCITA RN, ZULY Unavailable Unavaildomingo EVANGELISTA PT, ADITI Unavailable Unavailable JOSE SANTANAN, KALANI Unavailable Unavailable ELZA ECHO TECHNOLOGIST, JEFF Unavailable Unavailable ZEKE OT, CANDIS Unavailable Unavailable ANAIS MERCER Unavailable Unavailable Payers Payer Name Policy Type Policy Number Effective Date Expira tion Date MEDICARE.CAITLYNANTONIETARosario.[facility] [id number] Problems Condition Name Condition Details Condition Category Status Onset Date Resolution Date Last Treatment Date Treating Clinician Comments 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SACRAL REGION, STAGE 3 Active 3-10 00:00: 00 CHR OBSTRUCTIVE PULMON DISEASE WITH (ACUTE) LOWER RESP INFCT Active 04-17 00:00: 00 PNEUMONIA, UNSPECIFIED ORGANISM Active 04-17 00:00: 00 HYPERTENSIVE HEART DISEASE WITH HEART FAILURE Active 04-05 00:00: 00 UNSPECIFIED SYSTOLIC (CONGESTIVE) HEART FAILURE Active 1999-04 00:00: 00 ATRIOVENTRIC ULAR BLOCK, FIRST DEGREE Active 04-05 00:00: 00 ATHSCL HEART DISEASE OF [place] CORONARY ARTERY W/O ANG PCTRS Active 1999-04 00:00: 00 ANEMIA, UNSPECIFIED Active 04-05 00:00: 00 OTHER CERVICAL DISC DEGENERATION , UNSP CERVICAL REGION Active 1999-04 00:00: 00 UNILATERAL PRIMARY OSTEOARTHRIT IS, RIGHT KNEE Active 04-05 00:00: 00 DVRTCLOS OF INTEST, PART UNSP, W/O PERF OR ABSCESS W/O BLEED Active 04-05 00:00: 00 VITAMIN D DEFICIENCY, UNSPECIFIED Active 04-05 00:00: 00 INSOMNIA, UNSPECIFIED Active 04-05 00:00: 00 UNSPECIFIED SEVERE PROTEIN-ZBIGNIEW NOLBERTO MALNUTRITION Active 1999-04 00:00: 00 MAJOR DEPRESSIVE DISORDER, SINGLE EPISODE, MODERATE Active 04-05 00:00: 00 HYPERLIPIDEM IA, UNSPECIFIED Active 04-05 00:00: 00 DYSPHAGIA, OROPHARYNGEA L PHASE Active 04-05 00:00: 00 NICOTINE DEPENDENCE, CIGARETTES, UNCOMPLICATE D Active 04-05 00:00: 00 HISTORY OF FALLING Active 1999-04 00:00: 00 Allergies, Adverse Reactions, Alerts Allergy Name Allergy Type Status Severity Reaction(s) Onset Date Inactive Date Treating Clinician Comments SHRIMP EXTR ALLERGY SKIN TEST Propensity to adverse reactions Active 2024-06 12:51:3 6 IODIDE Propensity to adverse reactions Active 2024-06 12:51:4 5 Medications Ordered Medication Name Filled Medication Name Start Date Stop Date Current Medication? Ordering Clinician Indication Dosage Frequency Signature (SIG) Comments Components Advil 200 mg tablet 06-12 00:00: 00 Yes [id number] NEEDED FOR MILD PAIN 1 tablet EVERY 6 HOURS 1 tablet EVERY 6 HOURS (route: oral) Med Classific ation: Analgesic , Anti-infl ammatory or Antipyret ic Flomax 0.4 mg capsule 06-12 00:00: 00 Yes [id number] BPH 1 capsule DAILY 1 capsule DAILY (route: oral) Med Classific ation: Genitouri nary Therapy hydroxyzine HCl 25 mg tablet 06-12 00:00: 00 Yes [id number] NEEDED FOR MOOD 1 tablet EVERY 8 HOURS 1 tablet EVERY 8 HOURS (route: oral) Med Classific ation: Central Nervous System Agents losartan 50 mg tablet 06-12 00:00: 00 Yes [id number] HIGH BLOOD PRESSURE 1 tablet DAILY 1 tablet DAILY (route: oral) Med Classific ation: Cardiovas cular Therapy Agents sertraline 50 mg tablet 06-12 00:00: 00 Yes [id number] MOOD 1 tablet DAILY 1 tablet DAILY (route: oral) Med Classific ation: Central Nervous System Agents Silvadene 1 % topical cream 06-12 00:00: 00 Yes [id number] WITH WOUND CARE AND NEEDED IF DRESSING BECOMED SOILED OR DISLODGED 1 inch DAILY 1 inch DAILY (route: topical) Med Classific ation: Dermatolo gical trazodone 50 mg tablet 06-12 00:00: 00 Yes [id number] SLEEP 0.5 tablet BEDTIME 0.5 tablet BEDTIME (route: oral) Med Classific ation: Central Nervous System Agents Vital Signs Vital Name Observation Time Observation Value Commen ts Temperature 2024-06-21 13:23:00.000 97.3 [degF] Temperature 2024-06-20 16:04:00.000 97.2 [degF] Temperature 2024-06-20 10:36:00.000 97.2 [degF] Temperature 2024-06-15 14:53:00.000 97.1 [degF] Temperature 2024-06-13 10:46:00.000 98.4 [degF] Temperature 2024-06-13 09:50:00.000 98.4 [degF] Temperature 2024-06-12 13:35:00.000 97.2 [degF] BMI (%) 2024-06-12 13:21:44.000 21 kg/m2 Height 2024-06-12 13:21:20.000 72 [in_us] Pulse 2024-06-21 13:23:00.000 62 /min Pulse 2024-06-20 16:04:00.000 92 /min Pulse 2024-06-20 10:36:00.000 89 /min Pulse 2024-06-15 14:53:00.000 60 /min Pulse 2024-06-13 10:46:00.000 67 /min Pulse 2024-06-13 09:50:00.000 67 /min Pulse 2024-06-12 13:35:00.000 74 /min O2 Saturation (%) 2024-06-21 13:23:00.000 95 % O2 Saturation (%) 2024-06-20 10:36:00.000 98 % O2 Saturation (%) 2024-06-15 14:53:00.000 93 % O2 Saturation (%) 2024-06-13 10:46:00.000 90 % O2 Saturation (%) 2024-06-13 09:50:00.000 90 % O2 Saturation (%) 2024-06-12 13:35:00.000 98 % Respirations 2024-06-21 13:23:00.000 18 /min Respirations 2024-06-20 16:04:00.000 18 /min Respirations 2024-06-20 10:36:00.000 18 /min Respirations 2024-06-15 14:53:00.000 18 /min Respirations 2024-06-13 10:46:00.000 18 /min Respirations 2024-06-13 09:50:00.000 18 /min Respirations 2024-06-12 13:35:00.000 18 /min Weight (lbs) 2024-06-21 13:25:00.000 165 [lb_av] Weight (lbs) 2024-06-15 15:00:00.000 160 [lb_av] Weight (lbs) 2024-06-12 13:21:44.000 161 [lb_av] Systolic Blood Pressure 2024-06-21 13:23:00.000 124 mm [Hg] Systolic Blood Pressure 2024-06-20 16:04:00.000 98 mm[ Hg] Systolic Blood Pressure 2024-06-20 10:36:00.000 102 mm [Hg] Systolic Blood Pressure 2024-06-15 14:53:00.000 90 mm[ Hg] Systolic Blood Pressure 2024-06-13 10:46:00.000 108 mm [Hg] Systolic Blood Pressure 2024-06-13 09:50:00.000 108 mm [Hg] Systolic Blood Pressure 2024-06-12 13:35:00.000 102 mm [Hg] Diastolic Blood Pressure 2024-06-21 13:23:00.000 74 mm [Hg] Diastolic Blood Pressure 2024-06-20 16:04:00.000 54 mm [Hg] Diastolic Blood Pressure 2024-06-20 10:36:00.000 62 mm [Hg] Diastolic Blood Pressure 2024-06-15 14:53:00.000 60 mm [Hg] Diastolic Blood Pressure 2024-06-13 10:46:00.000 58 mm [Hg] Diastolic Blood Pressure 2024-06-13 09:50:00.000 58 mm [Hg] Diastolic Blood Pressure 2024-06-12 13:35:00.000 86 mm [Hg] Plan of Treatment Planned Activity Planned Date Details Comments Future Scheduled Test RN TO OBSE RVE, ASSESS, EVALUATE, AND DEVELOP AN INDIVIDUALIZED PLAN OF CARE. AGENCY MAY ACCEPT ORDERS FROM CONSULTING PHYSICIANS RN TO OBSERVE AND ASSESS, TRADE FACILITATOR/COORDINATOR MINING PRODUCTS TO OBSERVE FOR RISK FOR FALLS AND INSTRUCT IN FALL PREVENTION, HOME SAFETY, MEDICATION MANAGEMENT, INFECTION PREVENTION, AND NUTRITION MANAGEMENT. RN/TRADE FACILITATOR/COORDINATOR MINING PRODUCTS NURSE MAY PERFORM O2 SATURATION LEVEL ON ADMISSION AND PRN FOR EVERY VISIT FOR RN TO ASSESS/TRADE FACILITATOR TO OBSERVE PATIENT, WITH NOTIFICATION TO THE PHYSICIAN IF SATURATION IS 90% IN THE ABSENCE OF MORE SPECIFIC PARAMETERS FROM THE PHYSICIAN. AGENCY MAY PERFORM A RESUMPTION OF CARE VISIT FOLLOWING ANY HOSPITAL ADMISSION. RN/TRADE FACILITATOR/COORDINATOR MINING PRODUCTS TO MONITOR CO-MORBID CONDITIONS LISTED ON THE PLAN OF CARE AND ANY NEW CONDITIONS THAT PRESENT THEMSELVES DURING THIS EPISODE TO IDENTIFY CHANGES AND INTERVENE TO MINIMIZE COMPLICATIONS. PATIENT HAS PAST MEDICAL HISTORY OF FALL, CAD, HTN, HLD, MULTIFOCAL PNEUMONIA, ELEVATED TROPONIN, MUSCLE WEAKNESS, MALAISE. 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 [code = RN TO OBSERVE, ASSESS, EVALUATE, AND DEVELOP AN INDIVIDUALIZED PLAN OF CARE. AGENCY MAY ACCEPT ORDERS FROM CONSULTING PHYSICIANS RN TO OBSERVE AND ASSESS, TRADE FACILITATOR/COORDINATOR MINING PRODUCTS TO OBSERVE FOR RISK FOR FALLS AND INSTRUCT IN FALL PREVENTION, HOME SAFETY, MEDICATION MANAGEMENT, INFECTION PREVENTION, AND NUTRITION MANAGEMENT. RN/TRADE FACILITATOR/COORDINATOR MINING PRODUCTS NURSE MAY PERFORM O2 SATURATION LEVEL ON ADMISSION AND PRN FOR EVERY VISIT FOR RN TO ASSESS/TRADE FACILITATOR TO OBSERVE PATIENT, WITH NOTIFICATION TO THE PHYSICIAN IF SATURATION IS 90% IN THE ABSENCE OF MORE SPECIFIC PARAMETERS FROM THE PHYSICIAN. AGENCY MAY PERFORM A RESUMPTION OF CARE VISIT FOLLOWING ANY HOSPITAL ADMISSION. RN/TRADE FACILITATOR/COORDINATOR MINING PRODUCTS TO MONITOR CO-MORBID CONDITIONS LISTED ON THE PLAN OF CARE AND ANY NEW CONDITIONS THAT PRESENT THEMSELVES DURING THIS EPISODE TO IDENTIFY CHANGES AND INTERVENE TO MINIMIZE COMPLICATIONS. PATIENT HAS PAST MEDICAL HISTORY OF FALL, CAD, HTN, HLD, MULTIFOCAL PNEUMONIA, ELEVATED TROPONIN, MUSCLE WEAKNESS, MALAISE. 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 ] Future Scheduled Test PHYSICAL T HERAPIST TO EVALUATE FOR EVALUATION AND TREATMENT [code = PHYSICAL THERAPIST TO EVALUATE FOR EVALUATION AND TREATMENT ] Future Scheduled Test OCCUPATION AL THERAPIST TO EVALUATE FOR EVALUATION AND TREATMENT [code = OCCUPATIONAL THERAPIST TO EVALUATE FOR EVALUATION AND TREATMENT ] Future Scheduled Test MEDICATION MANAGEMENT; RN/TRADE FACILITATOR/COORDINATOR MINING PRODUCTS TO REVIEW MEDICATIONS FOR INTERACTIONS, EFFECTIVENESS OF DRUG THERAPY, AND SIGNS/SYMPTOMS OF ADVERSE REACTIONS. MAY INSTRUCT AND REINFORCE MEDICATION TEACHING RELATED TO THE USE OF MEDICATIONS, DOSAGE, FREQUENCY, PURPOSE, SIDE EFFECTS, AND TO REPORT COMPLICATIONS. [code = MEDICATION MANAGEMENT; RN/TRADE FACILITATOR/COORDINATOR MINING PRODUCTS TO REVIEW MEDICATIONS FOR INTERACTIONS, EFFECTIVENESS OF DRUG THERAPY, AND SIGNS/SYMPTOMS OF ADVERSE REACTIONS. MAY INSTRUCT AND REINFORCE MEDICATION TEACHING RELATED TO THE USE OF MEDICATIONS, DOSAGE, FREQUENCY, PURPOSE, SIDE EFFECTS, AND TO REPORT COMPLICATIONS.] Future Scheduled Test RESPIRATOR Y SYSTEM MANAGEMENT; RN TO ASSESS AND TEACH, TRADE FACILITATOR/COORDINATOR MINING PRODUCTS TO OBSERVE AND TEACH RELATED TO ALTERED RESPIRATORY STATUS TO MINIMIZE COMPLICATIONS AND REDUCE HOSPITALIZATION. [code = RESPIRATORY SYSTEM MANAGEMENT; RN TO ASSESS AND TEACH, TRADE FACILITATOR/COORDINATOR MINING PRODUCTS TO OBSERVE AND TEACH RELATED TO ALTERED RESPIRATORY STATUS TO MINIMIZE COMPLICATIONS AND REDUCE HOSPITALIZATION. ] Future Scheduled Test COPD MANAG EMENT; RN TO ASSESS AND TEACH, TRADE FACILITATOR/COORDINATOR MINING PRODUCTS TO OBSERVE AND TEACH SIGNS/SYMPTOMS OF COPD EXACERBATION AND PROVIDE EARLY INTERVENTIONS TO MINIMIZE RISK OF HOSPITALIZATION. RN/TRADE FACILITATOR/COORDINATOR MINING PRODUCTS TO INSTRUCT ON SELF-CARE MANAGEMENT INCLUDING BREATHING TECHNIQUES, AIRWAY CLEARANCE, AND PROPER USE OF COPD MEDICATIONS. RN TO ASSESS AND TEACH, TRADE FACILITATOR/COORDINATOR MINING PRODUCTS TO OBSERVE AND TEACH PATIENT/CAREGIVER ABILITY TO MONITOR AND RECORD VITAL SIGNS INCLUDING PULSE OXIMETRY AND BLOOD PRESSURE. PULSE OXIMETER AND BP MONITOR TO BE PROVIDED IF NEEDED [code = COPD MANAGEMENT; RN TO ASSESS AND TEACH, TRADE FACILITATOR/COORDINATOR MINING PRODUCTS TO OBSERVE AND TEACH SIGNS/SYMPTOMS OF COPD EXACERBATION AND PROVIDE EARLY INTERVENTIONS TO MINIMIZE RISK OF HOSPITALIZATION. RN/TRADE FACILITATOR/COORDINATOR MINING PRODUCTS TO INSTRUCT ON SELF-CARE MANAGEMENT INCLUDING BREATHING TECHNIQUES, AIRWAY CLEARANCE, AND PROPER USE OF COPD MEDICATIONS. RN TO ASSESS AND TEACH, TRADE FACILITATOR/COORDINATOR MINING PRODUCTS TO OBSERVE AND TEACH PATIENT/CAREGIVER ABILITY TO MONITOR AND RECORD VITAL SIGNS INCLUDING PULSE OXIMETRY AND BLOOD PRESSURE. PULSE OXIMETER AND BP MONITOR TO BE PROVIDED IF NEEDED ] Future Scheduled Test PNEUMONIA MANAGEMENT; RN TO ASSESS AND TEACH, TRADE FACILITATOR/COORDINATOR MINING PRODUCTS TO OBSERVE AND TEACH SIGNS OF PNEUMONIA EXACERBATION AND PROVIDE EARLY INTERVENTIONS TO MINIMIZE RISK OF HOSPITALIZATION. [code = PNEUMONIA MANAGEMENT; RN TO ASSESS AND TEACH, TRADE FACILITATOR/COORDINATOR MINING PRODUCTS TO OBSERVE AND TEACH SIGNS OF PNEUMONIA EXACERBATION AND PROVIDE EARLY INTERVENTIONS TO MINIMIZE RISK OF HOSPITALIZATION. ] Future Scheduled Test FALL REDUC TION MANAGEMENT; RN TO ASSESS AND OBSERVE, TRADE FACILITATOR/COORDINATOR MINING PRODUCTS TO OBSERVE FALL RISK FACTORS AND EDUCATE PATIENT/CAREGIVER ON STRATEGIES TO MINIMIZE THE RISK OF FALLING. [code = FALL REDUCTION MANAGEMENT; RN TO ASSESS AND OBSERVE, TRADE FACILITATOR/COORDINATOR MINING PRODUCTS TO OBSERVE FALL RISK FACTORS AND EDUCATE PATIENT/CAREGIVER ON STRATEGIES TO MINIMIZE THE RISK OF FALLING.] Future Scheduled Test ANEMIA MAN AGEMENT; RN TO ASSESS AND TEACH, COORDINATOR MINING PRODUCTS/TRADE FACILITATOR TO OBSERVE AND TEACH AND PROVIDE EDUCATION ON ANEMIA. [code = ANEMIA MANAGEMENT; RN TO ASSESS AND TEACH, COORDINATOR MINING PRODUCTS/TRADE FACILITATOR TO OBSERVE AND TEACH AND PROVIDE EDUCATION ON ANEMIA.] Future Scheduled Test PAIN MANAG EMENT; RN TO ASSESS AND TEACH, COORDINATOR MINING PRODUCTS/TRADE FACILITATOR TO OBSERVE AND TEACH AND PROVIDE EDUCATION ON PAIN MANAGEMENT TECHNIQUES. [code = PAIN MANAGEMENT; RN TO ASSESS AND TEACH, COORDINATOR MINING PRODUCTS/TRADE FACILITATOR TO OBSERVE AND TEACH AND PROVIDE EDUCATION ON PAIN MANAGEMENT TECHNIQUES.] Future Scheduled Test RN/TRADE FACILITATOR/COORDINATOR MINING PRODUCTS TO PERFORM/TEACH PATIENT/CAREGIVER WOUND CARE PRESSURE INJURY TO SACRAL AREA IRRIGATE/CLEANSE WITH WOUND CLEANSER/NORMAL SALINE. PAT DRY WITH 4X4 GAUZE, APPLY SILVADENE CREAM 1% AND CALCIUM ALGINATE MAY APPLY SKIN BARRIER TO PERIWOUND PRN TO PREVENT MACERATION AND PROTECT PERIWOUND COVER WITH FOAM DRESSING CHANGE DRESSING EVERY 2-3 TIMES A WEEK AND PRN FOR SOILAGE DRESSING [code = RN/TRADE FACILITATOR/COORDINATOR MINING PRODUCTS TO PERFORM/TEACH PATIENT/CAREGIVER WOUND CARE PRESSURE INJURY TO SACRAL AREA IRRIGATE/CLEANSE WITH WOUND CLEANSER/NORMAL SALINE. PAT DRY WITH 4X4 GAUZE, APPLY SILVADENE CREAM 1% AND CALCIUM ALGINATE MAY APPLY SKIN BARRIER TO PERIWOUND PRN TO PREVENT MACERATION AND PROTECT PERIWOUND COVER WITH FOAM DRESSING CHANGE DRESSING EVERY 2-3 TIMES A WEEK AND PRN FOR SOILAGE DRESSING ] Future Scheduled Test PRN VISITS ; NUMBER OF RN/TRADE FACILITATOR/COORDINATOR MINING PRODUCTS VISITS: 1 RN/TRADE FACILITATOR/COORDINATOR MINING PRODUCTS TO PERFORM: WOUND MANAGEMENT FOR THE FOLLOWING REASONS: COMPLICATIONS [code = PRN VISITS; NUMBER OF RN/TRADE FACILITATOR/COORDINATOR MINING PRODUCTS VISITS: 1 RN/TRADE FACILITATOR/COORDINATOR MINING PRODUCTS TO PERFORM: WOUND MANAGEMENT FOR THE FOLLOWING REASONS: COMPLICATIONS ] Future Scheduled Test CANCER MAN AGEMENT; RN TO ASSESS AND TEACH, COORDINATOR MINING PRODUCTS/TRADE FACILITATOR TO OBSERVE AND TEACH AND PROVIDE EDUCATION ON CANCER. [code = CANCER MANAGEMENT; RN TO ASSESS AND TEACH, COORDINATOR MINING PRODUCTS/TRADE FACILITATOR TO OBSERVE AND TEACH AND PROVIDE EDUCATION ON CANCER.] Future Scheduled Test RISK FOR H OSPITALIZATION; RN TO ASSESS/TEACH, COORDINATOR MINING PRODUCTS/TRADE FACILITATOR TO OBSERVE/TEACH PATIENT/CAREGIVER ON RISK FOR HOSPITALIZATION/EMERGENCY ROOM VISITS, TEACH SIGNS AND SYMPTOMS THAT PUT PATIENT AT RISK, WHEN TO NOTIFY NURSE/PHYSICIAN OF COMPLICATIONS/DECLINE, AND WHEN TO CALL 911. [code = RISK FOR HOSPITALIZATION; RN TO ASSESS/TEACH, COORDINATOR MINING PRODUCTS/TRADE FACILITATOR TO OBSERVE/TEACH PATIENT/CAREGIVER ON RISK FOR HOSPITALIZATION/EMERGENCY ROOM VISITS, TEACH SIGNS AND SYMPTOMS THAT PUT PATIENT AT RISK, WHEN TO NOTIFY NURSE/PHYSICIAN OF COMPLICATIONS/DECLINE, AND WHEN TO CALL 911.] Future Scheduled Test CARDIOVASC ULAR SYSTEM; RN TO ASSESS/TEACH, TRADE FACILITATOR/COORDINATOR MINING PRODUCTS TO OBSERVE/TEACH RELATED TO ALTERED CARDIOVASCULAR STATUS TO MINIMIZE COMPLICATIONS AND REDUCE HOSPITALIZATION. [code = CARDIOVASCULAR SYSTEM; RN TO ASSESS/TEACH, TRADE FACILITATOR/COORDINATOR MINING PRODUCTS TO OBSERVE/TEACH RELATED TO ALTERED CARDIOVASCULAR STATUS TO MINIMIZE COMPLICATIONS AND REDUCE HOSPITALIZATION.] Future Scheduled Test HYPERTENSI ON MANAGEMENT; RN TO ASSESS AND TEACH, TRADE FACILITATOR/COORDINATOR MINING PRODUCTS TO OBSERVE AND TEACH WARNING SIGNS AND SYMPTOMS TO AVOID HOSPITALIZATION. [code = HYPERTENSION MANAGEMENT; RN TO ASSESS AND TEACH, TRADE FACILITATOR/COORDINATOR MINING PRODUCTS TO OBSERVE AND TEACH WARNING SIGNS AND SYMPTOMS TO AVOID HOSPITALIZATION.] Future Scheduled Test SKIN INTEG RITY RN TO ASSESS AND TEACH, TRADE FACILITATOR/COORDINATOR MINING PRODUCTS TO OBSERVE AND TEACH INTEGUMENTARY STATUS TO IDENTIFY CHANGES AND INTERVENE TO MINIMIZE COMPLICATIONS. PROVIDE SKILLED TEACHING OF GENERAL WOUND AND SKIN CARE AND PREVENTION RELATED TO POTENTIAL FOR OR ACTUAL ALTERED SKIN INTEGRITY [code = SKIN INTEGRITY RN TO ASSESS AND TEACH, TRADE FACILITATOR/COORDINATOR MINING PRODUCTS TO OBSERVE AND TEACH INTEGUMENTARY STATUS TO IDENTIFY CHANGES AND INTERVENE TO MINIMIZE COMPLICATIONS. PROVIDE SKILLED TEACHING OF GENERAL WOUND AND SKIN CARE AND PREVENTION RELATED TO POTENTIAL FOR OR ACTUAL ALTERED SKIN INTEGRITY ] Future Scheduled Test RN TO ASSE SS AND TEACH, TRADE FACILITATOR/COORDINATOR MINING PRODUCTS TO OBSERVE AND TEACH INTEGUMENTARY STATUS RELATED TO PRESSURE INJURY MANAGEMENT TO IDENTIFY CHANGES AND INTERVENE TO MINIMIZE COMPLICATIONS. PROVIDE SKILLED TEACHING RELATED TO ALTERED SKIN INTEGRITY TO INCLUDE OFFLOADING, FREQUENT POSITION CHANGES, KEEP SKIN CLEAN AND DRY TO PREVENT SKIN BREAKDOWN AND MINIMIZE FRICTION AND SHEARING REPORT SIGNIFICANT CHANGES IN STATUS TO PHYSICIAN FOR EARLY INTERVENTION. [code = RN TO ASSESS AND TEACH, TRADE FACILITATOR/COORDINATOR MINING PRODUCTS TO OBSERVE AND TEACH INTEGUMENTARY STATUS RELATED TO PRESSURE INJURY MANAGEMENT TO IDENTIFY CHANGES AND INTERVENE TO MINIMIZE COMPLICATIONS. PROVIDE SKILLED TEACHING RELATED TO ALTERED SKIN INTEGRITY TO INCLUDE OFFLOADING, FREQUENT POSITION CHANGES, KEEP SKIN CLEAN AND DRY TO PREVENT SKIN BREAKDOWN AND MINIMIZE FRICTION AND SHEARING REPORT SIGNIFICANT CHANGES IN STATUS TO PHYSICIAN FOR EARLY INTERVENTION.] Future Scheduled Test WOUND MOLE CULAR TESTING PROTOCOL UP TO 3 PRN RN/TRADE FACILITATOR VISITS MAY BE PERFORMED FOR S/S OF WOUND INFECTION/DETERIORATION/STAGNATION. RN TO ASSESS, TRADE FACILITATOR/COORDINATOR MINING PRODUCTS TO OBSERVE AND INITIATE PROTOCOL. RN/TRADE FACILITATOR/COORDINATOR MINING PRODUCTS TO INSTRUCT PATIENT AND/OR CAREGIVER ON S/S OF WOUND INFECTION/DETERIORATION/STAGNATION TO REPORT TO NURSE IF NEW OR WORSENING SYMPTOMS. RN/TRADE FACILITATOR/COORDINATOR MINING PRODUCTS TO OBTAIN MOLECULAR WOUND TESTING VIA SWAB COLLECTION PER POLICY. [id number] NOTIFY PROVIDER OF RESULTS AND OBTAIN FURTHER ORDERS. [code = WOUND MOLECULAR TESTING PROTOCOL UP TO 3 PRN RN/TRADE FACILITATOR VISITS MAY BE PERFORMED FOR S/S OF WOUND INFECTION/DETERIORATION/STAGNATION. RN TO ASSESS, TRADE FACILITATOR/COORDINATOR MINING PRODUCTS TO OBSERVE AND INITIATE PROTOCOL. RN/TRADE FACILITATOR/COORDINATOR MINING PRODUCTS TO INSTRUCT PATIENT AND/OR CAREGIVER ON S/S OF WOUND INFECTION/DETERIORATION/STAGNATION TO REPORT TO NURSE IF NEW OR WORSENING SYMPTOMS. RN/TRADE FACILITATOR/COORDINATOR MINING PRODUCTS TO OBTAIN MOLECULAR WOUND TESTING VIA SWAB COLLECTION PER POLICY. [id number] NOTIFY PROVIDER OF RESULTS AND OBTAIN FURTHER ORDERS.] Future Scheduled Test AGENCY MAY PERFORM A RESUMPTION OF CARE VISIT FOLLOWING ANY HOSPITAL ADMISSION. PT TO EVALUATE, OBSERVE / ASSESS, AND MONITOR, ECHO TECHNOLOGIST TO OBSERVE AND MONITOR, PROVIDE SKILLED THERAPEUTIC INTERVENTION, ACTIVITY, EDUCATION, AND TRAINING TO ADDRESS; PT/ECHO TECHNOLOGIST TO PROVIDE GAIT TRAINING FOR IMPROVED MOBILITY AND /OR TO NORMALIZE GAIT PATTERN NEUROMUSCULAR RE-EDUCATION / BALANCE / POSTURAL CONTROL (PT) THERAPEUTIC EXERCISES AND ESTABLISHING A HOME EXERCISE PROGRAM (PT/ECHO TECHNOLOGIST) SIT TO/FROM STAND TRANSFERS (PT/ECHO TECHNOLOGIST) PT / ECHO TECHNOLOGIST TO MONITOR AND EDUCATE ON OXYGEN SATURATION DURING ADLS/IADLS, NOTIFY PHYSICIAN AND/OR THE RN CLINICAL FIRE MARSHAL FOR PHYSICIAN NOTIFICATION AND IF O2 SATS BELOW PHYSICIAN ORDERED PARAMETERS AFTER 10 MIN OF REST PT / ECHO TECHNOLOGIST MAY EDUCATE ON PAIN MANAGEMENT CLINICALLY INDICATED, INCLUDING NON-PHARMACOLOGICAL PAIN REDUCTION TECHNIQUES. PT / ECHO TECHNOLOGIST TO INSTRUCT PATIENT/CAREGIVER ON RISK FOR HOSPITALIZATION/EMERGENCY ROOM VISITS, TEACH SIGNS AND SYMPTOMS THAT PUT PATIENT AT RISK, WHEN TO NOTIFY NURSE/PHYSICIAN OF COMPLICATIONS/DECLINE, AND WHEN TO CALL 911. PT / ECHO TECHNOLOGIST TO EDUCATE ON HYPERTENSION SELF-MANAGEMENT PT TO ASSESS / ECHO TECHNOLOGIST TO MONITOR CARDIO/RESPIRATORY SYSTEM; AND NOTIFY THE PHYSICIAN AND/OR THE RN CLINICAL FIRE MARSHAL FOR PHYSICIAN NOTIFICATION FOR EARLY SIGNS AND SYMPTOMS OF EXACERBATION OR DETERIORATION. PT / ECHO TECHNOLOGIST TO EDUCATE ON PNEUMONIA / ASPIRATION PNEUMONIA SELF-MANAGEMENT. PT/ECHO TECHNOLOGIST TO IDENTIFY FALL RISK FACTORS; EDUCATE THE PATIENT/CAREGIVER ON WAYS TO REDUCE FALL RISK FACTORS AND ESTABLISH HOME EXERCISE PROGRAM TO MINIMIZE FALL RISK. MAY TEACH THE PATIENT FLOOR RECOVERY WHEN CLINICALLY APPROPRIATE PT / ECHO TECHNOLOGIST TO OBSERVE FOR EARLY SIGNS AND SYMPTOMS OF DEPRESSION OR DEPRESSION GETTING WORSE AND TO EDUCATE ON HOW TO FIND HELP. PT / ECHO TECHNOLOGIST TO EDUCATE ON HEART FAILURE SELF-MANAGEMENT PT / ECHO TECHNOLOGIST TO EDUCATE ON COPD SELF-MANAGEMENT [code = AGENCY MAY PERFORM A RESUMPTION OF CARE VISIT FOLLOWING ANY HOSPITAL ADMISSION. PT TO EVALUATE, OBSERVE / ASSESS, AND MONITOR, ECHO TECHNOLOGIST TO OBSERVE AND MONITOR, PROVIDE SKILLED THERAPEUTIC INTERVENTION, ACTIVITY, EDUCATION, AND TRAINING TO ADDRESS; PT/ECHO TECHNOLOGIST TO PROVIDE GAIT TRAINING FOR IMPROVED MOBILITY AND /OR TO NORMALIZE GAIT PATTERN NEUROMUSCULAR RE-EDUCATION / BALANCE / POSTURAL CONTROL (PT) THERAPEUTIC EXERCISES AND ESTABLISHING A HOME EXERCISE PROGRAM (PT/ECHO TECHNOLOGIST) SIT TO/FROM STAND TRANSFERS (PT/ECHO TECHNOLOGIST) PT / ECHO TECHNOLOGIST TO MONITOR AND EDUCATE ON OXYGEN SATURATION DURING ADLS/IADLS, NOTIFY PHYSICIAN AND/OR THE RN CLINICAL FIRE MARSHAL FOR PHYSICIAN NOTIFICATION AND IF O2 SATS BELOW PHYSICIAN ORDERED PARAMETERS AFTER 10 MIN OF REST PT / ECHO TECHNOLOGIST MAY EDUCATE ON PAIN MANAGEMENT CLINICALLY INDICATED, INCLUDING NON-PHARMACOLOGICAL PAIN REDUCTION TECHNIQUES. PT / ECHO TECHNOLOGIST TO INSTRUCT PATIENT/CAREGIVER ON RISK FOR HOSPITALIZATION/EMERGENCY ROOM VISITS, TEACH SIGNS AND SYMPTOMS THAT PUT PATIENT AT RISK, WHEN TO NOTIFY NURSE/PHYSICIAN OF COMPLICATIONS/DECLINE, AND WHEN TO CALL 911. PT / ECHO TECHNOLOGIST TO EDUCATE ON HYPERTENSION SELF-MANAGEMENT PT TO ASSESS / ECHO TECHNOLOGIST TO MONITOR CARDIO/RESPIRATORY SYSTEM; AND NOTIFY THE PHYSICIAN AND/OR THE RN CLINICAL FIRE MARSHAL FOR PHYSICIAN NOTIFICATION FOR EARLY SIGNS AND SYMPTOMS OF EXACERBATION OR DETERIORATION. PT / ECHO TECHNOLOGIST TO EDUCATE ON PNEUMONIA / ASPIRATION PNEUMONIA SELF-MANAGEMENT. PT/ECHO TECHNOLOGIST TO IDENTIFY FALL RISK FACTORS; EDUCATE THE PATIENT/CAREGIVER ON WAYS TO REDUCE FALL RISK FACTORS AND ESTABLISH HOME EXERCISE PROGRAM TO MINIMIZE FALL RISK. MAY TEACH THE PATIENT FLOOR RECOVERY WHEN CLINICALLY APPROPRIATE PT / ECHO TECHNOLOGIST TO OBSERVE FOR EARLY SIGNS AND SYMPTOMS OF DEPRESSION OR DEPRESSION GETTING WORSE AND TO EDUCATE ON HOW TO FIND HELP. PT / ECHO TECHNOLOGIST TO EDUCATE ON HEART FAILURE SELF-MANAGEMENT PT / ECHO TECHNOLOGIST TO EDUCATE ON COPD SELF-MANAGEMENT ] Future Scheduled Test AGENCY MAY PERFORM A RESUMPTION OF CARE VISIT FOLLOWING ANY HOSPITAL ADMISSION. OT TO EVALUATE, OBSERVE / ASSESS, AND MONITOR, MICHI TO OBSERVE AND MONITOR, PROVIDE SKILLED THERAPEUTIC INTERVENTION, ACTIVITY, EDUCATION, AND TRAINING TO ADDRESS SAFETY AND INDEPENDENCE OF ADLS AND FUNCTIONAL TRANSFERS IN HOME ENVIRONMENT. BATHING/SHOWERING (OT/MICHI) ACTIVITIES OF DAILY LIVING (OT/SHOE PLANNER) TOILET TRANSFER (OT/SHOE PLANNER) BATH/SHOWER TRANSFER (OT/MICHI) THERAPEUTIC EXERCISE (OT/MICHI) ENERGY CONSERVATION/ACTIVITY DEMAND (OT/MICHI) OT/SHOE PLANNER TO MONITOR AND EDUCATE ON OXYGEN SATURATION DURING ADLS/IADLS, NOTIFY PHYSICIAN AND/OR THE RN CLINICAL FIRE MARSHAL FOR PHYSICIAN NOTIFICATION AND IF O2 SATS BELOW 90% AFTER 10 MIN OF REST. OT / MICHI TO IDENTIFY FALL RISK FACTORS; EDUCATE THE PATIENT/CAREGIVER ON WAYS TO REDUCE FALL RISK FACTORS AND ESTABLISH HOME EXERCISE PROGRAM TO MINIMIZE FALL RISK. MAY TEACH THE PATIENT FLOOR RECOVERY WHEN CLINICALLY APPROPRIATE. OT/SHOE PLANNER TO EDUCATE ON HYPERTENSION SELF-MANAGEMENT OT/MICHI TO EDUCATE ON PNEUMONIA / ASPIRATION PNEUMONIA SELF-MANAGEMENT. HOME HEALTH AIDE SERVICE FOR ASSISTANCE WITH PERSONAL CARE, HYGIENE AND ACTIVITIES OF DAILY LIVING. OT TO ASSESS / MICHI TO MONITOR CARDIO/RESPIRATORY SYSTEM; AND NOTIFY THE PHYSICIAN AND/OR THE RN CLINICAL FIRE MARSHAL FOR PHYSICIAN NOTIFICATION FOR EARLY SIGNS AND SYMPTOMS OF EXACERBATION OR DETERORATION OT/MICHI TO EDUCATE ON COPD SELF-MANAGEMENT [code = AGENCY MAY PERFORM A RESUMPTION OF CARE VISIT FOLLOWING ANY HOSPITAL ADMISSION. OT TO EVALUATE, OBSERVE / ASSESS, AND MONITOR, SHOE PLANNER TO OBSERVE AND MONITOR, PROVIDE SKILLED THERAPEUTIC INTERVENTION, ACTIVITY, EDUCATION, AND TRAINING TO ADDRESS SAFETY AND INDEPENDENCE OF ADLS AND FUNCTIONAL TRANSFERS IN HOME ENVIRONMENT. BATHING/SHOWERING (OT/SHOE PLANNER) ACTIVITIES OF DAILY LIVING (OT/SHOE PLANNER) TOILET TRANSFER (OT/SHOE PLANNER) BATH/SHOWER TRANSFER (OT/SHOE PLANNER) THERAPEUTIC EXERCISE (OT/SHOE PLANNER) ENERGY CONSERVATION/ACTIVITY DEMAND (OT/SHOE PLANNER) OT/SHOE PLANNER TO MONITOR AND EDUCATE ON OXYGEN SATURATION DURING ADLS/IADLS, NOTIFY PHYSICIAN AND/OR THE RN CLINICAL FIRE MARSHAL FOR PHYSICIAN NOTIFICATION AND IF O2 SATS BELOW 90% AFTER 10 MIN OF REST. OT / MICHI TO IDENTIFY FALL RISK FACTORS; EDUCATE THE PATIENT/CAREGIVER ON WAYS TO REDUCE FALL RISK FACTORS AND ESTABLISH HOME EXERCISE PROGRAM TO MINIMIZE FALL RISK. MAY TEACH THE PATIENT FLOOR RECOVERY WHEN CLINICALLY APPROPRIATE. OT/MICHI TO EDUCATE ON HYPERTENSION SELF-MANAGEMENT OT/SHOE PLANNER TO EDUCATE ON PNEUMONIA / ASPIRATION PNEUMONIA SELF-MANAGEMENT. HOME HEALTH AIDE SERVICE FOR ASSISTANCE WITH PERSONAL CARE, HYGIENE AND ACTIVITIES OF DAILY LIVING. OT TO ASSESS / MICHI TO MONITOR CARDIO/RESPIRATORY SYSTEM; AND NOTIFY THE PHYSICIAN AND/OR THE RN CLINICAL FIRE MARSHAL FOR PHYSICIAN NOTIFICATION FOR EARLY SIGNS AND SYMPTOMS OF EXACERBATION OR DETERORATION OT/SHOE PLANNER TO EDUCATE ON COPD SELF-MANAGEMENT ] Goal Patient Goal - TO BE ABLE TO WALK Goal Provider Goal - A PLAN OF CARE WILL BE ESTABLISHED THAT MEETS THE PATIENTS NEEDS. PATIENT WILL DEMONSTRATE OXYGEN SATURATION WITHIN NORMAL LIMITS OR PATIENTS OPTIMAL LEVEL ESTABLISHED BY THE PHYSICIAN THROUGHOUT CARE. CHANGES TO CO-MORBID CONDITIONS AND ANY NEW CONDITIONS WILL BE IDENTIFIED AND REPORTED TO THE PHYSICIAN. Goal Provider Goal - PATIENT WILL BENEFIT FROM PT SERVICES BY 5.8.25 Goal Provider Goal - PATIENT WILL BENEFIT FROM OT SERVICES BY 5.8.25 Goal Provider Goal - PATIENT/CAREGIVER TO VERBALIZE, AND CONSISTENTLY DEMONSTRATE EFFECTIVE, SAFE MANAGEMENT OF MEDICATION INCLUDING KNOWLEDGE OF EFFECTIVENESS, POTENTIAL SIDE EFFECTS AND DRUG REACTIONS AND WHEN TO CONTACT THE APPROPRIATE CARE PROVIDER. PATIENT/CAREGIVER WILL BE ABLE TO VERBALIZE UNDERSTANDING OF MEDICATION REGIMEN AND ACCURATELY TAKE MEDICATIONS PRESCRIBED WITHOUT ADVERSE EFFECTS BY 5.8.25 Goal Provider Goal - PATIENT / CAREGIVER WILL VERBALIZE/DEMONSTRATE UNDERSTANDING OF MEASURES TO MANAGE ALTERED RESPIRATORY STATUS BY 5.8.25 Goal Provider Goal - PATIENT / CAREGIVER WILL VERBALIZE/DEMONSTRATE AN ABILITY TO ADHERE TO SELF-MANAGEMENT OF COPD TO MINIMIZE COMPLICATIONS AND AVOID HOSPITALIZATION BY 5.8.25 Goal Provider Goal - PATIENT / CAREGIVER WILL VERBALIZE/DEMONSTRATE AN ABILITY TO ADHERE TO PNEUMONIA SELF-MANAGEMENT TO MINIMIZE COMPLICATIONS AND AVOID HOSPITALIZATION BY 5.8.25 Goal Provider Goal - PATIENT/CAREGIVER WILL VERBALIZE/DEMONSTRATE UNDERSTANDING OF FALL RISK FACTORS AND IMPLEMENT STRATEGIES TO MINIMIZE FALL RISK. PATIENT/CAREGIVER WILL VERBALIZE/DEMONSTRATE AN ABILITY TO ADHERE TO FALL REDUCTION SELF-MANAGEMENT AND LIFE-STYLE CHANGES BY 5.8.25 Goal Provider Goal - PATIENT/CAREGIVER WILL VERBALIZE UNDERSTANDING OF CARE AND MANAGEMENT OF ANEMIA BY 5.8.25 Goal Provider Goal - PATIENT / CAREGIVER WILL VERBALIZE / DEMONSTRATE UNDERSTANDING OF PAIN CONTROL MEASURES BY 5.8.25 Goal Provider Goal - PATIENT / CAREGIVER WILL VERBALIZE / DEMONSTRATE ABILITY TO PERFORM WOUND CARE. WOUND STATUS WILL IMPROVE EVIDENCED BY A DECREASE IN SIZE, DRAINAGE, ABSENCE OF INFECTION, AND DECREASED PAIN BY 5.8.25 Goal Provider Goal - PATIENT WILL UTILIZE PRN VISITS TO PREVENT HOSPITALIZATION BY 5.8.25 Goal Provider Goal - PATIENT / CAREGIVER WILL VERBALIZE/DEMONSTRATE UNDERSTANDING OF MEASURES TO MINIMIZE COMPLICATIONS AND REDUCE HOSPITALIZATION RELATED TO CANCER BY 5.8.25 Goal Provider Goal - PATIENT/CAREGIVER WILL VERBALIZE UNDERSTANDING OF SIGNS AND SYMPTOMS THAT PUT THE PATIENT AT RISK FOR HOSPITALIZATION /EMERGENCY ROOM VISITS, WHEN TO NOTIFY NURSE/PHYSICIAN OF COMPLICATIONS/DECLINE AND WHEN TO CALL 911. Goal Provider Goal - PATIENT / CAREGIVER WILL VERBALIZE/DEMONSTRATE UNDERSTANDING OF MEASURES TO MANAGE ALTERED CARDIOVASCULAR STATUS BY 5.8.25 Goal Provider Goal - PATIENT / CAREGIVER WILL VERBALIZE/DEMONSTRATE AN ABILITY TO ADHERE TO SELF-MANAGEMENT OF HTN TO MINIMIZE COMPLICATIONS AND AVOID HOSPITALIZATION BY 5.8.25 Goal Provider Goal - CHANGES IN SKIN INTEGRITY STATUS WILL BE IDENTIFIED AND REPORTED TO THE PHYSICIAN FOR PROMPT INTERVENTION. PATIENT / CAREGIVER WILL VERBALIZE/DEMONSTRATE ADEQUATE KNOWLEDGE OF INTEGUMENTARY STATUS AND APPROPRIATE MEASURES TO PROMOTE SKIN INTEGRITY AND PREVENT INJURY BY 5.8.25 Goal Provider Goal - CHANGES IN SKIN INTEGRITY STATUS RELATED TO PRESSURE INJURY MANAGEMENT WILL BE IDENTIFIED AND REPORTED TO THE PHYSICIAN FOR PROMPT INTERVENTION. PATIENT / CAREGIVER WILL VERBALIZE/DEMONSTRATE ADEQUATE KNOWLEDGE OF INTEGUMENTARY STATUS AND APPROPRIATE MEASURES TO PROMOTE SKIN INTEGRITY AND PREVENT INJURY BY 5.8.25 Goal Provider Goal - PATIENT WILL DEMONSTRATE IMPROVEMENT IN S/S OF WOUND INFECTION/DETERIORATION/STAGNATION TO AVOID HOSPITALIZATION. Goal Provider Goal - PATIENT WILL DEMONSTRATE PT GOALS MET BY 5.8.25 PT LTG: PATIENT WILL DEMONSTRATE REDUCED GAIT DEVIATIONS TO REDUCE THE RISK FOR FALLING AND MINIMIZE STRAIN ON KNEES/HIPS AND BACK EVIDENCED BY IMPROVED HEEL STRIKE AND STANCE PHASE TO WALK 150 FT OF LEVEL SURFACE INDEPENDENTLY FROM UNABLE IN ORDER TO ACCESS MD OFFICE WITHIN 9 WEEKS. PT LTG: PATIENT WILL DEMONSTRATE REDUCED FALL RISK EVIDENCED BY TINETTI TEST IMPROVING FROM 0 TO 19 WITHIN 9 WEEKS. PT LTG: PATIENT WILL DEMONSTRATE IMPROVED POSTURAL CONTROL AND SENSORY INTEGRATION OF THEIR BALANCE SYSTEMS EVIDENCED BY MCTSIB IMPROVING FROM 0 TO 2 WITHIN 9 WEEKS. PT STG: PATIENT WILL SAFELY PERFORM HEP WITH SUPERVISION WITHIN 3WEEKS. PT LTG: PATIENT WILL DEMONSTRATE INCREASED STRENGTH OF B LE FROM 3+/5 TO 4+/5 WITHIN 9 WEEKS IN ORDER TO AMBULATE INDEPENDENTLY. PT STG: PATIENT WILL DEMONSTRATE IMPROVED ABILITY TO PERFORM SIT TO/FROM STAND TRANSFERS TO REDUCE THE RISK OF SKIN BREAKDOWN AND REDUCE FALL RISK FROM MOD ASSIST TO INDEPENDENT WITHIN 6 WEEKS. PT LTG: PATIENT WILL MAINTAIN OXYGEN SATURATION WITHIN PHYSICIAN ORDERED PARAMETERS THROUGHOUT EPISODE OF CARE. PT GOAL: PATIENT WILL DEMONSTRATE UNDERSTANDING OF PAIN MANAGEMENT TECHNIQUES EVIDENCED BY ABSENCE OF PAIN BY 5.8.25 PT GOAL: PATIENT/CAREGIVER WILL VERBALIZE UNDERSTANDING OF SIGNS AND SYMPTOMS THAT PUT THE PATIENT AT RISK FOR HOSPITALIZATION /EMERGENCY ROOM VISITS, WHEN TO NOTIFY NURSE/PHYSICIAN OF COMPLICATIONS/DECLINE AND WHEN TO CALL 911. PT GOAL: PATIENT/CAREGIVER WILL BE ABLE TO IDENTIFY SIGNS OF EXACERBATION OF HYPERTENSION AND WILL VERBALIZE/DEMONSTRATE AN ABILITY TO ADHERE TO HYPERTENSION SELF-MANAGEMENT AND LIFE-STYLE CHANGES BY 5.8.25 PT LTG: PATIENT WILL NOT EXPERIENCE CARDIAC OR RESPIRATORY COMPLICATIONS THROUGHOUT THE EPISODE OF CARE. PT GOAL: PATIENT / CAREGIVER WILL DEMONSTRATE ADHERENCE TO PNEUMONIA SELF-MANAGEMENT BY 5.8.25 PT LTG: PATIENT/CAREGIVER WILL DEMONSTRATE ADHERENCE TO FALL REDUCTION SELF-MANAGEMENT AND REDUCING FALL RISK FACTORS TO MINIMIZE FALL RISK BY 5.8.25 PT LTG: PATIENT WILL BE INDEPENDENT WITH IMPLEMENTATION OF HEP WITHIN 9 WEEKS. PT LTG: EARLY IDENTIFICATION OF WORSENING DEPRESSION WITH TIMELY SN AND/OR PHYSICIAN NOTIFICATION. PT LTG: PATIENT/CAREGIVER WILL BE ABLE TO IDENTIFY SIGNS OF EXACERBATION OF HEART FAILURE AND VERBALIZE / DEMONSTRATE HOW TO MANAGE SYMPTOMS AND HOW TO ADHERE TO HEART FAILURE SELF-MANAGEMENT AND LIFE-STYLE CHANGES BY 5.8.25 PT GOAL: THE PATIENT / CAREGIVER WILL DEMONSTRATE ADHERENCE TO COPD SELF-MANAGEMENT BY 5.8.25 Goal Provider Goal - PATIENT WILL DEMONSTRATE OT GOALS MET BY 5.8.25 OT STG: PATIENT WILL SAFELY COMPLETE UB/LB BATHING WITH MIN A USING AE NEEDED WITHIN 3 WEEKS. OT LTG: PATIENT WILL DEMONSTRATE IMPROVED ABILITY TO PERFORM BATHING/SHOWERING AND REDUCE CAREGIVER BURDEN FROM MOD A TO SUP WITHIN 6 WEEKS. OT LTG: PATIENT WILL DEMONSTRATE IMPROVEMENT IN MODIFIED VLAD INDEX SCORE FROM 71 TO 91 INDICATING DECREASED DEPENDENCY ON CAREGIVER ASSISTANCE WITH ACTIVITIES OF DAILY LIVING WITHIN 6 WEEKS. OT LTG: PATIENT WILL DEMONSTRATE IMPROVED ABILITY TO PERFORM TOILET TRANSFERS TO REDUCE FALL RISK AND RISK OF INCONTINENCE AND UTI DEVELOPMENT FROM CGA TO MOD I WITHIN 6 WEEKS. OT LTG: PATIENT WILL DEMONSTRATE IMPROVED ABILITY AND SAFETY TO PERFORM BATH/SHOWER TRANSFER FROM CGA TO SUP WITHIN 6 WEEKS. OT LTG: PATIENT WILL DEMONSTRATE IMPROVED BUE MUSCLE STRENGTH EVIDENCED BY AN IMPROVEMENT IN MMT/FUNCTIONAL STRENGTH FROM 4/5 TO 4+/5 WITHIN 6 WEEKS IN ORDER TO COMPLETE FUNCTIONAL TRANSFERS OT LTG: PATIENT WILL DEMO/REPORT 2 ECT DURING FUNCTIONAL PERFORMANCE FOR IMPROVED SAFETY IN HOME WITHIN 6 WEEKS. OT LTG: PATIENT WILL MAINTAIN OXYGEN SATURATION WITHIN PHYSICIAN ORDERED PARAMETERS THROUGHOUT THE EPISODE OF CARE. OT LTG: PATIENT/CAREGIVER WILL BE ABLE TO IMPLEMENT RECOMMENDATIONS SPECIFIC TO FALL REDUCTION FOR IMPROVED ADL/IADL COMPLETION AND HOME SAFETY BY 5.8.25 OT LTG: PATIENT WILL BE INDEPENDENT WITH IMPLEMENTATION OF HEP WITHIN 6 WEEKS. OT GOAL: PATIENT/CAREGIVER WILL BE ABLE TO IDENTIFY SIGNS OF EXACERBATION OF HYPERTENSION AND WILL VERBALIZE/DEMONSTRATE AN ABILITY TO ADHERE TO HYPERTENSION SELF-MANAGEMENT AND LIFE-STYLE CHANGES BY 5.8.25 OT GOAL: PATIENT / CAREGIVER WILL DEMONSTRATE ADHERENCE TO PNEUMONIA SELF-MANAGEMENT BY 5.8.25 PATIENT WILL RECEIVE ASSISTANCE WITH PERSONAL CARE AND HYGIENE AND OTHER ACTIVITIES OF DAILY LIVING NEEDED. OT LTG: PATIENT WILL NOT EXPERIENCE CARDIAC OR RESPIRATORY COMPLICATIONS THROUGHOUT THE EPISODE OF CARE. OT GOAL: THE PATIENT / CAREGIVER WILL DEMONSTRATE ADHERENCE TO COPD SELF-MANAGEMENT BY 5.8.25. Encounters Start Date/Time End Date/Time Encounter Type Admission Type Attending [facility] Facility Care Department Encounter ID Discharge Date Discharge Status Discharge Condition Discharge Reason Percent Goals Met 2024-06-12 00:00:00 2024-08-10 00:00:00 Outpatient NEW ADMISSION [facility] [id number] 14.00
--- OUTSIDE RECORDS SUMMARY | 2024-06-26 18:52 | XMS_ITS | Clinical Summary ---
Author Organization Unknown Care Team Providers Care Adult Education Manager Name Role Phone GLADYS PA, CANDICE Unavailable Unavailable CARMENCITA RN, ZULY Unavailable Unavaildomingo EVANGELISTA PT, ADITI Unavailable Unavailable JOSE SANTANAN, KALANI Unavailable Unavailable ELZA INFORMATION SYSTEMS CONSULTANT, JEFF Unavailable Unavailable ZEKE OT, CANDIS Unavailable Unavailable ANAIS MERCER Unavailable Unavailable Payers Payer Name Policy Type Policy Number Effective Date Expira tion Date MEDICARE.CAITLYNANTONIETARosario.[facility] [id number] Problems Condition Name Condition Details Condition Category [...] 04-05 00:00: 00 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 [...] 200 mg tablet 06-12 00:00: 00 Yes [id number] NEEDED FOR MILD PAIN 1 tablet EVERY 6 HOURS 1 tablet EVERY 6 HOURS (route: oral) Med Classific ation: Analgesic , Anti-infl ammatory or Antipyret ic Flomax 0.4 mg capsule 06-12 00:00: 00 Yes [id number] BPH 1 capsule DAILY 1 capsule DAILY (route: oral) Med Classific ation: Genitouri nary Therapy hydroxyzine HCl 25 mg tablet 06-12 00:00: 00 Yes [id number] NEEDED FOR MOOD 1 tablet EVERY 8 HOURS 1 tablet EVERY 8 HOURS (route: oral) Med Classific ation: Central Nervous System Agents losartan 50 mg tablet 06-12 00:00: 00 Yes [id number] HIGH BLOOD PRESSURE 1 tablet DAILY 1 tablet DAILY (route: oral) Med Classific ation: Cardiovas cular Therapy Agents sertraline 50 mg tablet 06-12 00:00: 00 Yes [id number] MOOD 1 tablet DAILY 1 tablet DAILY (route: oral) Med Classific ation: Central Nervous System Agents Silvadene 1 % topical cream 06-12 00:00: 00 Yes [id number] WITH WOUND CARE AND NEEDED IF DRESSING BECOMED SOILED OR DISLODGED 1 inch DAILY 1 inch DAILY (route: topical) Med Classific ation: Dermatolo gical trazodone 50 mg tablet 06-12 00:00: 00 Yes [id number] SLEEP 0.5 tablet BEDTIME 0.5 tablet BEDTIME [...] CONSULTING PHYSICIANS RN TO OBSERVE AND ASSESS, CHILD DEVELOPMENT PROFESSOR/HUMAN RESOURCES COMPLIANCE MANAGER TO OBSERVE FOR RISK FOR FALLS AND INSTRUCT IN FALL PREVENTION, HOME SAFETY, MEDICATION MANAGEMENT, INFECTION PREVENTION, AND NUTRITION MANAGEMENT. RN/CHILD DEVELOPMENT PROFESSOR/HUMAN RESOURCES COMPLIANCE MANAGER NURSE MAY PERFORM O2 SATURATION LEVEL ON ADMISSION AND PRN FOR EVERY VISIT FOR RN TO ASSESS/CHILD DEVELOPMENT PROFESSOR TO OBSERVE PATIENT, WITH NOTIFICATION TO THE PHYSICIAN IF SATURATION IS 90% IN THE ABSENCE OF MORE SPECIFIC PARAMETERS FROM THE PHYSICIAN. AGENCY MAY PERFORM A RESUMPTION OF CARE VISIT FOLLOWING ANY HOSPITAL ADMISSION. RN/CHILD DEVELOPMENT PROFESSOR/HUMAN RESOURCES COMPLIANCE MANAGER TO MONITOR CO-MORBID CONDITIONS LISTED ON THE [...] CONSULTING PHYSICIANS RN TO OBSERVE AND ASSESS, CHILD DEVELOPMENT PROFESSOR/HUMAN RESOURCES COMPLIANCE MANAGER TO OBSERVE FOR RISK FOR FALLS AND INSTRUCT IN FALL PREVENTION, HOME SAFETY, MEDICATION MANAGEMENT, INFECTION PREVENTION, AND NUTRITION MANAGEMENT. RN/CHILD DEVELOPMENT PROFESSOR/HUMAN RESOURCES COMPLIANCE MANAGER NURSE MAY PERFORM O2 SATURATION LEVEL ON ADMISSION AND PRN FOR EVERY VISIT FOR RN TO ASSESS/CHILD DEVELOPMENT PROFESSOR TO OBSERVE PATIENT, WITH NOTIFICATION TO THE PHYSICIAN IF SATURATION IS 90% IN THE ABSENCE OF MORE SPECIFIC PARAMETERS FROM THE PHYSICIAN. AGENCY MAY PERFORM A RESUMPTION OF CARE VISIT FOLLOWING ANY HOSPITAL ADMISSION. RN/CHILD DEVELOPMENT PROFESSOR/HUMAN RESOURCES COMPLIANCE MANAGER TO MONITOR CO-MORBID CONDITIONS LISTED ON THE [...] TREATMENT ] Future Scheduled Test MEDICATION MANAGEMENT; RN/CHILD DEVELOPMENT PROFESSOR/HUMAN RESOURCES COMPLIANCE MANAGER TO REVIEW MEDICATIONS FOR INTERACTIONS, EFFECTIVENESS OF DRUG THERAPY, AND SIGNS/SYMPTOMS OF ADVERSE REACTIONS. MAY INSTRUCT AND REINFORCE MEDICATION TEACHING RELATED TO THE USE OF MEDICATIONS, DOSAGE, FREQUENCY, PURPOSE, SIDE EFFECTS, AND TO REPORT COMPLICATIONS. [code = MEDICATION MANAGEMENT; RN/CHILD DEVELOPMENT PROFESSOR/HUMAN RESOURCES COMPLIANCE MANAGER TO REVIEW MEDICATIONS FOR INTERACTIONS, EFFECTIVENESS OF DRUG THERAPY, AND SIGNS/SYMPTOMS OF ADVERSE REACTIONS. MAY INSTRUCT AND REINFORCE MEDICATION TEACHING RELATED TO THE USE OF MEDICATIONS, DOSAGE, FREQUENCY, PURPOSE, SIDE EFFECTS, AND TO REPORT COMPLICATIONS.] Future Scheduled Test RESPIRATOR Y SYSTEM MANAGEMENT; RN TO ASSESS AND TEACH, CHILD DEVELOPMENT PROFESSOR/HUMAN RESOURCES COMPLIANCE MANAGER TO OBSERVE AND TEACH RELATED TO ALTERED RESPIRATORY STATUS TO MINIMIZE COMPLICATIONS AND REDUCE HOSPITALIZATION. [code = RESPIRATORY SYSTEM MANAGEMENT; RN TO ASSESS AND TEACH, CHILD DEVELOPMENT PROFESSOR/HUMAN RESOURCES COMPLIANCE MANAGER TO OBSERVE AND TEACH RELATED TO ALTERED RESPIRATORY STATUS TO MINIMIZE COMPLICATIONS AND REDUCE HOSPITALIZATION. ] Future Scheduled Test COPD MANAG EMENT; RN TO ASSESS AND TEACH, CHILD DEVELOPMENT PROFESSOR/HUMAN RESOURCES COMPLIANCE MANAGER TO OBSERVE AND TEACH SIGNS/SYMPTOMS OF COPD EXACERBATION AND PROVIDE EARLY INTERVENTIONS TO MINIMIZE RISK OF HOSPITALIZATION. RN/CHILD DEVELOPMENT PROFESSOR/HUMAN RESOURCES COMPLIANCE MANAGER TO INSTRUCT ON SELF-CARE MANAGEMENT INCLUDING BREATHING TECHNIQUES, AIRWAY CLEARANCE, AND PROPER USE OF COPD MEDICATIONS. RN TO ASSESS AND TEACH, CHILD DEVELOPMENT PROFESSOR/HUMAN RESOURCES COMPLIANCE MANAGER TO OBSERVE AND TEACH PATIENT/CAREGIVER ABILITY TO MONITOR AND RECORD VITAL SIGNS INCLUDING PULSE OXIMETRY AND BLOOD PRESSURE. PULSE OXIMETER AND BP MONITOR TO BE PROVIDED IF NEEDED [code = COPD MANAGEMENT; RN TO ASSESS AND TEACH, CHILD DEVELOPMENT PROFESSOR/HUMAN RESOURCES COMPLIANCE MANAGER TO OBSERVE AND TEACH SIGNS/SYMPTOMS OF COPD EXACERBATION AND PROVIDE EARLY INTERVENTIONS TO MINIMIZE RISK OF HOSPITALIZATION. RN/CHILD DEVELOPMENT PROFESSOR/HUMAN RESOURCES COMPLIANCE MANAGER TO INSTRUCT ON SELF-CARE MANAGEMENT INCLUDING BREATHING TECHNIQUES, AIRWAY CLEARANCE, AND PROPER USE OF COPD MEDICATIONS. RN TO ASSESS AND TEACH, CHILD DEVELOPMENT PROFESSOR/HUMAN RESOURCES COMPLIANCE MANAGER TO OBSERVE AND TEACH PATIENT/CAREGIVER ABILITY TO MONITOR AND RECORD VITAL SIGNS INCLUDING PULSE OXIMETRY AND BLOOD PRESSURE. PULSE OXIMETER AND BP MONITOR TO BE PROVIDED IF NEEDED ] Future Scheduled Test PNEUMONIA MANAGEMENT; RN TO ASSESS AND TEACH, CHILD DEVELOPMENT PROFESSOR/HUMAN RESOURCES COMPLIANCE MANAGER TO OBSERVE AND TEACH SIGNS OF PNEUMONIA EXACERBATION AND PROVIDE EARLY INTERVENTIONS TO MINIMIZE RISK OF HOSPITALIZATION. [code = PNEUMONIA MANAGEMENT; RN TO ASSESS AND TEACH, CHILD DEVELOPMENT PROFESSOR/HUMAN RESOURCES COMPLIANCE MANAGER TO OBSERVE AND TEACH SIGNS OF PNEUMONIA EXACERBATION AND PROVIDE EARLY INTERVENTIONS TO MINIMIZE RISK OF HOSPITALIZATION. ] Future Scheduled Test FALL REDUC TION MANAGEMENT; RN TO ASSESS AND OBSERVE, CHILD DEVELOPMENT PROFESSOR/HUMAN RESOURCES COMPLIANCE MANAGER TO OBSERVE FALL RISK FACTORS AND EDUCATE PATIENT/CAREGIVER ON STRATEGIES TO MINIMIZE THE RISK OF FALLING. [code = FALL REDUCTION MANAGEMENT; RN TO ASSESS AND OBSERVE, CHILD DEVELOPMENT PROFESSOR/HUMAN RESOURCES COMPLIANCE MANAGER TO OBSERVE FALL RISK FACTORS AND EDUCATE PATIENT/CAREGIVER ON STRATEGIES TO MINIMIZE THE RISK OF FALLING.] Future Scheduled Test ANEMIA MAN AGEMENT; RN TO ASSESS AND TEACH, HUMAN RESOURCES COMPLIANCE MANAGER/CHILD DEVELOPMENT PROFESSOR TO OBSERVE AND TEACH AND PROVIDE EDUCATION ON ANEMIA. [code = ANEMIA MANAGEMENT; RN TO ASSESS AND TEACH, HUMAN RESOURCES COMPLIANCE MANAGER/CHILD DEVELOPMENT PROFESSOR TO OBSERVE AND TEACH AND PROVIDE EDUCATION ON ANEMIA.] Future Scheduled Test PAIN MANAG EMENT; RN TO ASSESS AND TEACH, HUMAN RESOURCES COMPLIANCE MANAGER/CHILD DEVELOPMENT PROFESSOR TO OBSERVE AND TEACH AND PROVIDE EDUCATION ON PAIN MANAGEMENT TECHNIQUES. [code = PAIN MANAGEMENT; RN TO ASSESS AND TEACH, HUMAN RESOURCES COMPLIANCE MANAGER/CHILD DEVELOPMENT PROFESSOR TO OBSERVE AND TEACH AND PROVIDE EDUCATION ON PAIN MANAGEMENT TECHNIQUES.] Future Scheduled Test RN/CHILD DEVELOPMENT PROFESSOR/HUMAN RESOURCES COMPLIANCE MANAGER TO PERFORM/TEACH PATIENT/CAREGIVER WOUND CARE PRESSURE INJURY TO SACRAL AREA IRRIGATE/CLEANSE WITH WOUND CLEANSER/NORMAL SALINE. PAT DRY WITH 4X4 GAUZE, APPLY SILVADENE CREAM 1% AND CALCIUM ALGINATE MAY APPLY SKIN BARRIER TO PERIWOUND PRN TO PREVENT MACERATION AND PROTECT PERIWOUND COVER WITH FOAM DRESSING CHANGE DRESSING EVERY 2-3 TIMES A WEEK AND PRN FOR SOILAGE DRESSING [code = RN/CHILD DEVELOPMENT PROFESSOR/HUMAN RESOURCES COMPLIANCE MANAGER TO PERFORM/TEACH PATIENT/CAREGIVER WOUND CARE PRESSURE INJURY [...] Scheduled Test PRN VISITS ; NUMBER OF RN/CHILD DEVELOPMENT PROFESSOR/HUMAN RESOURCES COMPLIANCE MANAGER VISITS: 1 RN/CHILD DEVELOPMENT PROFESSOR/HUMAN RESOURCES COMPLIANCE MANAGER TO PERFORM: WOUND MANAGEMENT FOR THE FOLLOWING REASONS: COMPLICATIONS [code = PRN VISITS; NUMBER OF RN/CHILD DEVELOPMENT PROFESSOR/HUMAN RESOURCES COMPLIANCE MANAGER VISITS: 1 RN/CHILD DEVELOPMENT PROFESSOR/HUMAN RESOURCES COMPLIANCE MANAGER TO PERFORM: WOUND MANAGEMENT FOR THE FOLLOWING REASONS: COMPLICATIONS ] Future Scheduled Test CANCER MAN AGEMENT; RN TO ASSESS AND TEACH, HUMAN RESOURCES COMPLIANCE MANAGER/CHILD DEVELOPMENT PROFESSOR TO OBSERVE AND TEACH AND PROVIDE EDUCATION ON CANCER. [code = CANCER MANAGEMENT; RN TO ASSESS AND TEACH, HUMAN RESOURCES COMPLIANCE MANAGER/CHILD DEVELOPMENT PROFESSOR TO OBSERVE AND TEACH AND PROVIDE EDUCATION ON CANCER.] Future Scheduled Test RISK FOR H OSPITALIZATION; RN TO ASSESS/TEACH, HUMAN RESOURCES COMPLIANCE MANAGER/CHILD DEVELOPMENT PROFESSOR TO OBSERVE/TEACH PATIENT/CAREGIVER ON RISK FOR HOSPITALIZATION/EMERGENCY ROOM VISITS, TEACH SIGNS AND SYMPTOMS THAT PUT PATIENT AT RISK, WHEN TO NOTIFY NURSE/PHYSICIAN OF COMPLICATIONS/DECLINE, AND WHEN TO CALL 911. [code = RISK FOR HOSPITALIZATION; RN TO ASSESS/TEACH, HUMAN RESOURCES COMPLIANCE MANAGER/CHILD DEVELOPMENT PROFESSOR TO OBSERVE/TEACH PATIENT/CAREGIVER ON RISK FOR HOSPITALIZATION/EMERGENCY ROOM VISITS, TEACH SIGNS AND SYMPTOMS THAT PUT PATIENT AT RISK, WHEN TO NOTIFY NURSE/PHYSICIAN OF COMPLICATIONS/DECLINE, AND WHEN TO CALL 911.] Future Scheduled Test CARDIOVASC ULAR SYSTEM; RN TO ASSESS/TEACH, CHILD DEVELOPMENT PROFESSOR/HUMAN RESOURCES COMPLIANCE MANAGER TO OBSERVE/TEACH RELATED TO ALTERED CARDIOVASCULAR STATUS TO MINIMIZE COMPLICATIONS AND REDUCE HOSPITALIZATION. [code = CARDIOVASCULAR SYSTEM; RN TO ASSESS/TEACH, CHILD DEVELOPMENT PROFESSOR/HUMAN RESOURCES COMPLIANCE MANAGER TO OBSERVE/TEACH RELATED TO ALTERED CARDIOVASCULAR STATUS TO MINIMIZE COMPLICATIONS AND REDUCE HOSPITALIZATION.] Future Scheduled Test HYPERTENSI ON MANAGEMENT; RN TO ASSESS AND TEACH, CHILD DEVELOPMENT PROFESSOR/HUMAN RESOURCES COMPLIANCE MANAGER TO OBSERVE AND TEACH WARNING SIGNS AND SYMPTOMS TO AVOID HOSPITALIZATION. [code = HYPERTENSION MANAGEMENT; RN TO ASSESS AND TEACH, CHILD DEVELOPMENT PROFESSOR/HUMAN RESOURCES COMPLIANCE MANAGER TO OBSERVE AND TEACH WARNING SIGNS AND SYMPTOMS TO AVOID HOSPITALIZATION.] Future Scheduled Test SKIN INTEG RITY RN TO ASSESS AND TEACH, CHILD DEVELOPMENT PROFESSOR/HUMAN RESOURCES COMPLIANCE MANAGER TO OBSERVE AND TEACH INTEGUMENTARY STATUS TO IDENTIFY CHANGES AND INTERVENE TO MINIMIZE COMPLICATIONS. PROVIDE SKILLED TEACHING OF GENERAL WOUND AND SKIN CARE AND PREVENTION RELATED TO POTENTIAL FOR OR ACTUAL ALTERED SKIN INTEGRITY [code = SKIN INTEGRITY RN TO ASSESS AND TEACH, CHILD DEVELOPMENT PROFESSOR/HUMAN RESOURCES COMPLIANCE MANAGER TO OBSERVE AND TEACH INTEGUMENTARY STATUS TO IDENTIFY CHANGES AND INTERVENE TO MINIMIZE COMPLICATIONS. PROVIDE SKILLED TEACHING OF GENERAL WOUND AND SKIN CARE AND PREVENTION RELATED TO POTENTIAL FOR OR ACTUAL ALTERED SKIN INTEGRITY ] Future Scheduled Test RN TO ASSE SS AND TEACH, CHILD DEVELOPMENT PROFESSOR/HUMAN RESOURCES COMPLIANCE MANAGER TO OBSERVE AND TEACH INTEGUMENTARY STATUS RELATED [...] [code = RN TO ASSESS AND TEACH, CHILD DEVELOPMENT PROFESSOR/HUMAN RESOURCES COMPLIANCE MANAGER TO OBSERVE AND TEACH INTEGUMENTARY STATUS RELATED [...] CULAR TESTING PROTOCOL UP TO 3 PRN RN/CHILD DEVELOPMENT PROFESSOR VISITS MAY BE PERFORMED FOR S/S OF WOUND INFECTION/DETERIORATION/STAGNATION. RN TO ASSESS, CHILD DEVELOPMENT PROFESSOR/HUMAN RESOURCES COMPLIANCE MANAGER TO OBSERVE AND INITIATE PROTOCOL. RN/CHILD DEVELOPMENT PROFESSOR/HUMAN RESOURCES COMPLIANCE MANAGER TO INSTRUCT PATIENT AND/OR CAREGIVER ON S/S OF WOUND INFECTION/DETERIORATION/STAGNATION TO REPORT TO NURSE IF NEW OR WORSENING SYMPTOMS. RN/CHILD DEVELOPMENT PROFESSOR/HUMAN RESOURCES COMPLIANCE MANAGER TO OBTAIN MOLECULAR WOUND TESTING VIA SWAB COLLECTION PER POLICY. [id number] NOTIFY PROVIDER OF RESULTS AND OBTAIN FURTHER ORDERS. [code = WOUND MOLECULAR TESTING PROTOCOL UP TO 3 PRN RN/CHILD DEVELOPMENT PROFESSOR VISITS MAY BE PERFORMED FOR S/S OF WOUND INFECTION/DETERIORATION/STAGNATION. RN TO ASSESS, CHILD DEVELOPMENT PROFESSOR/HUMAN RESOURCES COMPLIANCE MANAGER TO OBSERVE AND INITIATE PROTOCOL. RN/CHILD DEVELOPMENT PROFESSOR/HUMAN RESOURCES COMPLIANCE MANAGER TO INSTRUCT PATIENT AND/OR CAREGIVER ON S/S OF WOUND INFECTION/DETERIORATION/STAGNATION TO REPORT TO NURSE IF NEW OR WORSENING SYMPTOMS. RN/CHILD DEVELOPMENT PROFESSOR/HUMAN RESOURCES COMPLIANCE MANAGER TO OBTAIN MOLECULAR WOUND TESTING VIA SWAB COLLECTION PER POLICY. [id number] NOTIFY PROVIDER OF RESULTS AND OBTAIN FURTHER ORDERS.] Future Scheduled Test AGENCY MAY PERFORM A RESUMPTION OF CARE VISIT FOLLOWING ANY HOSPITAL ADMISSION. PT TO EVALUATE, OBSERVE / ASSESS, AND MONITOR, INFORMATION SYSTEMS CONSULTANT TO OBSERVE AND MONITOR, PROVIDE SKILLED THERAPEUTIC INTERVENTION, ACTIVITY, EDUCATION, AND TRAINING TO ADDRESS; PT/INFORMATION SYSTEMS CONSULTANT TO PROVIDE GAIT TRAINING FOR IMPROVED MOBILITY AND /OR TO NORMALIZE GAIT PATTERN NEUROMUSCULAR RE-EDUCATION / BALANCE / POSTURAL CONTROL (PT) THERAPEUTIC EXERCISES AND ESTABLISHING A HOME EXERCISE PROGRAM (PT/INFORMATION SYSTEMS CONSULTANT) SIT TO/FROM STAND TRANSFERS (PT/INFORMATION SYSTEMS CONSULTANT) PT / INFORMATION SYSTEMS CONSULTANT TO MONITOR AND EDUCATE ON OXYGEN SATURATION DURING ADLS/IADLS, NOTIFY PHYSICIAN AND/OR THE RN CLINICAL TILE PRESSER FOR PHYSICIAN NOTIFICATION AND IF O2 SATS BELOW PHYSICIAN ORDERED PARAMETERS AFTER 10 MIN OF REST PT / INFORMATION SYSTEMS CONSULTANT MAY EDUCATE ON PAIN MANAGEMENT CLINICALLY INDICATED, INCLUDING NON-PHARMACOLOGICAL PAIN REDUCTION TECHNIQUES. PT / INFORMATION SYSTEMS CONSULTANT TO INSTRUCT PATIENT/CAREGIVER ON RISK FOR HOSPITALIZATION/EMERGENCY ROOM VISITS, TEACH SIGNS AND SYMPTOMS THAT PUT PATIENT AT RISK, WHEN TO NOTIFY NURSE/PHYSICIAN OF COMPLICATIONS/DECLINE, AND WHEN TO CALL 911. PT / INFORMATION SYSTEMS CONSULTANT TO EDUCATE ON HYPERTENSION SELF-MANAGEMENT PT TO ASSESS / INFORMATION SYSTEMS CONSULTANT TO MONITOR CARDIO/RESPIRATORY SYSTEM; AND NOTIFY THE PHYSICIAN AND/OR THE RN CLINICAL TILE PRESSER FOR PHYSICIAN NOTIFICATION FOR EARLY SIGNS AND SYMPTOMS OF EXACERBATION OR DETERIORATION. PT / INFORMATION SYSTEMS CONSULTANT TO EDUCATE ON PNEUMONIA / ASPIRATION PNEUMONIA SELF-MANAGEMENT. PT/INFORMATION SYSTEMS CONSULTANT TO IDENTIFY FALL RISK FACTORS; EDUCATE THE PATIENT/CAREGIVER ON WAYS TO REDUCE FALL RISK FACTORS AND ESTABLISH HOME EXERCISE PROGRAM TO MINIMIZE FALL RISK. MAY TEACH THE PATIENT FLOOR RECOVERY WHEN CLINICALLY APPROPRIATE PT / INFORMATION SYSTEMS CONSULTANT TO OBSERVE FOR EARLY SIGNS AND SYMPTOMS OF DEPRESSION OR DEPRESSION GETTING WORSE AND TO EDUCATE ON HOW TO FIND HELP. PT / INFORMATION SYSTEMS CONSULTANT TO EDUCATE ON HEART FAILURE SELF-MANAGEMENT PT / INFORMATION SYSTEMS CONSULTANT TO EDUCATE ON COPD SELF-MANAGEMENT [code = AGENCY MAY PERFORM A RESUMPTION OF CARE VISIT FOLLOWING ANY HOSPITAL ADMISSION. PT TO EVALUATE, OBSERVE / ASSESS, AND MONITOR, INFORMATION SYSTEMS CONSULTANT TO OBSERVE AND MONITOR, PROVIDE SKILLED THERAPEUTIC INTERVENTION, ACTIVITY, EDUCATION, AND TRAINING TO ADDRESS; PT/INFORMATION SYSTEMS CONSULTANT TO PROVIDE GAIT TRAINING FOR IMPROVED MOBILITY AND /OR TO NORMALIZE GAIT PATTERN NEUROMUSCULAR RE-EDUCATION / BALANCE / POSTURAL CONTROL (PT) THERAPEUTIC EXERCISES AND ESTABLISHING A HOME EXERCISE PROGRAM (PT/INFORMATION SYSTEMS CONSULTANT) SIT TO/FROM STAND TRANSFERS (PT/INFORMATION SYSTEMS CONSULTANT) PT / INFORMATION SYSTEMS CONSULTANT TO MONITOR AND EDUCATE ON OXYGEN SATURATION DURING ADLS/IADLS, NOTIFY PHYSICIAN AND/OR THE RN CLINICAL TILE PRESSER FOR PHYSICIAN NOTIFICATION AND IF O2 SATS BELOW PHYSICIAN ORDERED PARAMETERS AFTER 10 MIN OF REST PT / INFORMATION SYSTEMS CONSULTANT MAY EDUCATE ON PAIN MANAGEMENT CLINICALLY INDICATED, INCLUDING NON-PHARMACOLOGICAL PAIN REDUCTION TECHNIQUES. PT / INFORMATION SYSTEMS CONSULTANT TO INSTRUCT PATIENT/CAREGIVER ON RISK FOR HOSPITALIZATION/EMERGENCY ROOM VISITS, TEACH SIGNS AND SYMPTOMS THAT PUT PATIENT AT RISK, WHEN TO NOTIFY NURSE/PHYSICIAN OF COMPLICATIONS/DECLINE, AND WHEN TO CALL 911. PT / INFORMATION SYSTEMS CONSULTANT TO EDUCATE ON HYPERTENSION SELF-MANAGEMENT PT TO ASSESS / INFORMATION SYSTEMS CONSULTANT TO MONITOR CARDIO/RESPIRATORY SYSTEM; AND NOTIFY THE PHYSICIAN AND/OR THE RN CLINICAL TILE PRESSER FOR PHYSICIAN NOTIFICATION FOR EARLY SIGNS AND SYMPTOMS OF EXACERBATION OR DETERIORATION. PT / INFORMATION SYSTEMS CONSULTANT TO EDUCATE ON PNEUMONIA / ASPIRATION PNEUMONIA SELF-MANAGEMENT. PT/INFORMATION SYSTEMS CONSULTANT TO IDENTIFY FALL RISK FACTORS; EDUCATE THE PATIENT/CAREGIVER ON WAYS TO REDUCE FALL RISK FACTORS AND ESTABLISH HOME EXERCISE PROGRAM TO MINIMIZE FALL RISK. MAY TEACH THE PATIENT FLOOR RECOVERY WHEN CLINICALLY APPROPRIATE PT / INFORMATION SYSTEMS CONSULTANT TO OBSERVE FOR EARLY SIGNS AND SYMPTOMS OF DEPRESSION OR DEPRESSION GETTING WORSE AND TO EDUCATE ON HOW TO FIND HELP. PT / INFORMATION SYSTEMS CONSULTANT TO EDUCATE ON HEART FAILURE SELF-MANAGEMENT PT / INFORMATION SYSTEMS CONSULTANT TO EDUCATE ON COPD SELF-MANAGEMENT ] Future Scheduled Test AGENCY MAY PERFORM A RESUMPTION OF CARE VISIT FOLLOWING ANY HOSPITAL ADMISSION. OT TO EVALUATE, OBSERVE / ASSESS, AND MONITOR, MICHI TO OBSERVE AND MONITOR, PROVIDE SKILLED THERAPEUTIC INTERVENTION, ACTIVITY, EDUCATION, AND TRAINING TO ADDRESS SAFETY AND INDEPENDENCE OF ADLS AND FUNCTIONAL TRANSFERS IN HOME ENVIRONMENT. BATHING/SHOWERING (OT/MICHI) ACTIVITIES OF DAILY LIVING (OT/MUSIC TYPOGRAPHER) TOILET TRANSFER (OT/MUSIC TYPOGRAPHER) BATH/SHOWER TRANSFER (OT/MICHI) THERAPEUTIC EXERCISE (OT/MICHI) ENERGY CONSERVATION/ACTIVITY DEMAND (OT/MICHI) OT/MUSIC TYPOGRAPHER TO MONITOR AND EDUCATE ON OXYGEN SATURATION DURING ADLS/IADLS, NOTIFY PHYSICIAN AND/OR THE RN CLINICAL TILE PRESSER FOR PHYSICIAN NOTIFICATION AND IF O2 SATS BELOW 90% AFTER 10 MIN OF REST. OT / MICHI TO IDENTIFY FALL RISK FACTORS; EDUCATE THE PATIENT/CAREGIVER ON WAYS TO REDUCE FALL RISK FACTORS AND ESTABLISH HOME EXERCISE PROGRAM TO MINIMIZE FALL RISK. MAY TEACH THE PATIENT FLOOR RECOVERY WHEN CLINICALLY APPROPRIATE. OT/MUSIC TYPOGRAPHER TO EDUCATE ON HYPERTENSION SELF-MANAGEMENT OT/MICHI TO EDUCATE ON PNEUMONIA / ASPIRATION PNEUMONIA SELF-MANAGEMENT. HOME HEALTH AIDE SERVICE FOR ASSISTANCE WITH PERSONAL CARE, HYGIENE AND ACTIVITIES OF DAILY LIVING. OT TO ASSESS / MICHI TO MONITOR CARDIO/RESPIRATORY SYSTEM; AND NOTIFY THE PHYSICIAN AND/OR THE RN CLINICAL TILE PRESSER FOR PHYSICIAN NOTIFICATION FOR EARLY SIGNS AND SYMPTOMS OF EXACERBATION OR DETERORATION OT/MICHI TO EDUCATE ON COPD SELF-MANAGEMENT [code = AGENCY MAY PERFORM A RESUMPTION OF CARE VISIT FOLLOWING ANY HOSPITAL ADMISSION. OT TO EVALUATE, OBSERVE / ASSESS, AND MONITOR, MUSIC TYPOGRAPHER TO OBSERVE AND MONITOR, PROVIDE SKILLED THERAPEUTIC INTERVENTION, ACTIVITY, EDUCATION, AND TRAINING TO ADDRESS SAFETY AND INDEPENDENCE OF ADLS AND FUNCTIONAL TRANSFERS IN HOME ENVIRONMENT. BATHING/SHOWERING (OT/MUSIC TYPOGRAPHER) ACTIVITIES OF DAILY LIVING (OT/MUSIC TYPOGRAPHER) TOILET TRANSFER (OT/MUSIC TYPOGRAPHER) BATH/SHOWER TRANSFER (OT/MUSIC TYPOGRAPHER) THERAPEUTIC EXERCISE (OT/MUSIC TYPOGRAPHER) ENERGY CONSERVATION/ACTIVITY DEMAND (OT/MUSIC TYPOGRAPHER) OT/MUSIC TYPOGRAPHER TO MONITOR AND EDUCATE ON OXYGEN SATURATION DURING ADLS/IADLS, NOTIFY PHYSICIAN AND/OR THE RN CLINICAL TILE PRESSER FOR PHYSICIAN NOTIFICATION AND IF O2 SATS BELOW 90% AFTER 10 MIN OF REST. OT / MICHI TO IDENTIFY FALL RISK FACTORS; EDUCATE THE PATIENT/CAREGIVER ON WAYS TO REDUCE FALL RISK FACTORS AND ESTABLISH HOME EXERCISE PROGRAM TO MINIMIZE FALL RISK. MAY TEACH THE PATIENT FLOOR RECOVERY WHEN CLINICALLY APPROPRIATE. OT/MICHI TO EDUCATE ON HYPERTENSION SELF-MANAGEMENT OT/MUSIC TYPOGRAPHER TO EDUCATE ON PNEUMONIA / ASPIRATION PNEUMONIA SELF-MANAGEMENT. HOME HEALTH AIDE SERVICE FOR ASSISTANCE WITH PERSONAL CARE, HYGIENE AND ACTIVITIES OF DAILY LIVING. OT TO ASSESS / MICHI TO MONITOR CARDIO/RESPIRATORY SYSTEM; AND NOTIFY THE PHYSICIAN AND/OR THE RN CLINICAL TILE PRESSER FOR PHYSICIAN NOTIFICATION FOR EARLY SIGNS AND SYMPTOMS OF EXACERBATION OR DETERORATION OT/MUSIC TYPOGRAPHER TO EDUCATE ON COPD SELF-MANAGEMENT ] Goal [...] End Date/Time Encounter Type Admission Type Attending [facility] Facility Care Department Encounter ID Discharge Date Discharge Status Discharge Condition Discharge Reason Percent Goals Met 2024-06-12 00:00:00 2024-08-10 00:00:00 Outpatient NEW ADMISSION [facility]UL[facility] [id number] 14.00
--- OUTSIDE RECORDS SUMMARY | 2024-06-26 18:52 | XMS_ITS | Continuity of Care Document ---
Author Organization [facility] Address [address] [place] [address] [address] [place] [address] Phone Care Team Providers Care Louver Door Assembler Name Role Phone Woods OD, Camilo Unavailable Unavailable Procedures Procedure Date Eye Exam, New Patient Refraction Refraction Advance Directives Directive Yes / No Effective Date File Name No Information Encounters Encounter Description Practice Location Reason(s) For Visit Diagnoses Date Provider Providers Copied on Encounter [facility], [id number] [place] [address] [address], [place], [place], [id number], [place] tel:[phone] [facility] [place] No Information [phone] Woods OD Camilo. [address] , [address], [place], [address], [place]. tel:[phone] Family History Family Member Type Diagnosis Age At Onset No Information Payers Payer name Insurance type Covered libertarian ID Authoriza tion(s) Medicare [facility] [id number] [place] [id number] Social History Type Description Quantity Date Captured [...]
[2024-06-26 19:02] LABS: NT Pro B Type Natriuretic Pept 1050 pg/mL (19.9-100); Troponin I < 0.012 ng/mL (0.000-0.034)
[2024-06-26 20:06] VITALS: RESP 14; O2SAT 97
--- OUTSIDE RECORDS SUMMARY | 2024-06-26 20:34 | XMS_ITS | Clinical Summary ---
Author Organization Unknown Care Team Providers Care Inspector Paper Products Name Role Phone GLADYS PA, CANDICE Unavailable Unavailable CARMENCITA RN, ZULY Unavailable Unavaildomingo EVANGELISTA PT, ADITI Unavailable Unavailable JOSE SANTANAN, KALANI Unavailable Unavailable ELZA GARMENT LOOPER, JEFF Unavailable Unavailable ZEKE OT, CANDIS Unavailable Unavailable ANAIS MERCER Unavailable Unavailable Payers Payer Name Policy Type Policy Number Effective Date Expira tion Date MEDICARE.CAITLYNANTONIETARosario.[facility] [id number] Problems Condition Name Condition Details Condition Category [...] 04-05 00:00: 00 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 [...] 200 mg tablet 06-12 00:00: 00 Yes [id number] NEEDED FOR MILD PAIN 1 tablet EVERY 6 HOURS 1 tablet EVERY 6 HOURS (route: oral) Med Classific ation: Analgesic , Anti-infl ammatory or Antipyret ic Flomax 0.4 mg capsule 06-12 00:00: 00 Yes [id number] BPH 1 capsule DAILY 1 capsule DAILY (route: oral) Med Classific ation: Genitouri nary Therapy hydroxyzine HCl 25 mg tablet 06-12 00:00: 00 Yes [id number] NEEDED FOR MOOD 1 tablet EVERY 8 HOURS 1 tablet EVERY 8 HOURS (route: oral) Med Classific ation: Central Nervous System Agents losartan 50 mg tablet 06-12 00:00: 00 Yes [id number] HIGH BLOOD PRESSURE 1 tablet DAILY 1 tablet DAILY (route: oral) Med Classific ation: Cardiovas cular Therapy Agents sertraline 50 mg tablet 06-12 00:00: 00 Yes [id number] MOOD 1 tablet DAILY 1 tablet DAILY (route: oral) Med Classific ation: Central Nervous System Agents Silvadene 1 % topical cream 06-12 00:00: 00 Yes [id number] WITH WOUND CARE AND NEEDED IF DRESSING BECOMED SOILED OR DISLODGED 1 inch DAILY 1 inch DAILY (route: topical) Med Classific ation: Dermatolo gical trazodone 50 mg tablet 06-12 00:00: 00 Yes [id number] SLEEP 0.5 tablet BEDTIME 0.5 tablet BEDTIME [...] CONSULTING PHYSICIANS RN TO OBSERVE AND ASSESS, NURSE RECRUITER/CLOSED CIRCUIT SCREEN WATCHER TO OBSERVE FOR RISK FOR FALLS AND INSTRUCT IN FALL PREVENTION, HOME SAFETY, MEDICATION MANAGEMENT, INFECTION PREVENTION, AND NUTRITION MANAGEMENT. RN/NURSE RECRUITER/CLOSED CIRCUIT SCREEN WATCHER NURSE MAY PERFORM O2 SATURATION LEVEL ON ADMISSION AND PRN FOR EVERY VISIT FOR RN TO ASSESS/NURSE RECRUITER TO OBSERVE PATIENT, WITH NOTIFICATION TO THE PHYSICIAN IF SATURATION IS 90% IN THE ABSENCE OF MORE SPECIFIC PARAMETERS FROM THE PHYSICIAN. AGENCY MAY PERFORM A RESUMPTION OF CARE VISIT FOLLOWING ANY HOSPITAL ADMISSION. RN/NURSE RECRUITER/CLOSED CIRCUIT SCREEN WATCHER TO MONITOR CO-MORBID CONDITIONS LISTED ON THE [...] CONSULTING PHYSICIANS RN TO OBSERVE AND ASSESS, NURSE RECRUITER/CLOSED CIRCUIT SCREEN WATCHER TO OBSERVE FOR RISK FOR FALLS AND INSTRUCT IN FALL PREVENTION, HOME SAFETY, MEDICATION MANAGEMENT, INFECTION PREVENTION, AND NUTRITION MANAGEMENT. RN/NURSE RECRUITER/CLOSED CIRCUIT SCREEN WATCHER NURSE MAY PERFORM O2 SATURATION LEVEL ON ADMISSION AND PRN FOR EVERY VISIT FOR RN TO ASSESS/NURSE RECRUITER TO OBSERVE PATIENT, WITH NOTIFICATION TO THE PHYSICIAN IF SATURATION IS 90% IN THE ABSENCE OF MORE SPECIFIC PARAMETERS FROM THE PHYSICIAN. AGENCY MAY PERFORM A RESUMPTION OF CARE VISIT FOLLOWING ANY HOSPITAL ADMISSION. RN/NURSE RECRUITER/CLOSED CIRCUIT SCREEN WATCHER TO MONITOR CO-MORBID CONDITIONS LISTED ON THE [...] TREATMENT ] Future Scheduled Test MEDICATION MANAGEMENT; RN/NURSE RECRUITER/CLOSED CIRCUIT SCREEN WATCHER TO REVIEW MEDICATIONS FOR INTERACTIONS, EFFECTIVENESS OF DRUG THERAPY, AND SIGNS/SYMPTOMS OF ADVERSE REACTIONS. MAY INSTRUCT AND REINFORCE MEDICATION TEACHING RELATED TO THE USE OF MEDICATIONS, DOSAGE, FREQUENCY, PURPOSE, SIDE EFFECTS, AND TO REPORT COMPLICATIONS. [code = MEDICATION MANAGEMENT; RN/NURSE RECRUITER/CLOSED CIRCUIT SCREEN WATCHER TO REVIEW MEDICATIONS FOR INTERACTIONS, EFFECTIVENESS OF DRUG THERAPY, AND SIGNS/SYMPTOMS OF ADVERSE REACTIONS. MAY INSTRUCT AND REINFORCE MEDICATION TEACHING RELATED TO THE USE OF MEDICATIONS, DOSAGE, FREQUENCY, PURPOSE, SIDE EFFECTS, AND TO REPORT COMPLICATIONS.] Future Scheduled Test RESPIRATOR Y SYSTEM MANAGEMENT; RN TO ASSESS AND TEACH, NURSE RECRUITER/CLOSED CIRCUIT SCREEN WATCHER TO OBSERVE AND TEACH RELATED TO ALTERED RESPIRATORY STATUS TO MINIMIZE COMPLICATIONS AND REDUCE HOSPITALIZATION. [code = RESPIRATORY SYSTEM MANAGEMENT; RN TO ASSESS AND TEACH, NURSE RECRUITER/CLOSED CIRCUIT SCREEN WATCHER TO OBSERVE AND TEACH RELATED TO ALTERED RESPIRATORY STATUS TO MINIMIZE COMPLICATIONS AND REDUCE HOSPITALIZATION. ] Future Scheduled Test COPD MANAG EMENT; RN TO ASSESS AND TEACH, NURSE RECRUITER/CLOSED CIRCUIT SCREEN WATCHER TO OBSERVE AND TEACH SIGNS/SYMPTOMS OF COPD EXACERBATION AND PROVIDE EARLY INTERVENTIONS TO MINIMIZE RISK OF HOSPITALIZATION. RN/NURSE RECRUITER/CLOSED CIRCUIT SCREEN WATCHER TO INSTRUCT ON SELF-CARE MANAGEMENT INCLUDING BREATHING TECHNIQUES, AIRWAY CLEARANCE, AND PROPER USE OF COPD MEDICATIONS. RN TO ASSESS AND TEACH, NURSE RECRUITER/CLOSED CIRCUIT SCREEN WATCHER TO OBSERVE AND TEACH PATIENT/CAREGIVER ABILITY TO MONITOR AND RECORD VITAL SIGNS INCLUDING PULSE OXIMETRY AND BLOOD PRESSURE. PULSE OXIMETER AND BP MONITOR TO BE PROVIDED IF NEEDED [code = COPD MANAGEMENT; RN TO ASSESS AND TEACH, NURSE RECRUITER/CLOSED CIRCUIT SCREEN WATCHER TO OBSERVE AND TEACH SIGNS/SYMPTOMS OF COPD EXACERBATION AND PROVIDE EARLY INTERVENTIONS TO MINIMIZE RISK OF HOSPITALIZATION. RN/NURSE RECRUITER/CLOSED CIRCUIT SCREEN WATCHER TO INSTRUCT ON SELF-CARE MANAGEMENT INCLUDING BREATHING TECHNIQUES, AIRWAY CLEARANCE, AND PROPER USE OF COPD MEDICATIONS. RN TO ASSESS AND TEACH, NURSE RECRUITER/CLOSED CIRCUIT SCREEN WATCHER TO OBSERVE AND TEACH PATIENT/CAREGIVER ABILITY TO MONITOR AND RECORD VITAL SIGNS INCLUDING PULSE OXIMETRY AND BLOOD PRESSURE. PULSE OXIMETER AND BP MONITOR TO BE PROVIDED IF NEEDED ] Future Scheduled Test PNEUMONIA MANAGEMENT; RN TO ASSESS AND TEACH, NURSE RECRUITER/CLOSED CIRCUIT SCREEN WATCHER TO OBSERVE AND TEACH SIGNS OF PNEUMONIA EXACERBATION AND PROVIDE EARLY INTERVENTIONS TO MINIMIZE RISK OF HOSPITALIZATION. [code = PNEUMONIA MANAGEMENT; RN TO ASSESS AND TEACH, NURSE RECRUITER/CLOSED CIRCUIT SCREEN WATCHER TO OBSERVE AND TEACH SIGNS OF PNEUMONIA EXACERBATION AND PROVIDE EARLY INTERVENTIONS TO MINIMIZE RISK OF HOSPITALIZATION. ] Future Scheduled Test FALL REDUC TION MANAGEMENT; RN TO ASSESS AND OBSERVE, NURSE RECRUITER/CLOSED CIRCUIT SCREEN WATCHER TO OBSERVE FALL RISK FACTORS AND EDUCATE PATIENT/CAREGIVER ON STRATEGIES TO MINIMIZE THE RISK OF FALLING. [code = FALL REDUCTION MANAGEMENT; RN TO ASSESS AND OBSERVE, NURSE RECRUITER/CLOSED CIRCUIT SCREEN WATCHER TO OBSERVE FALL RISK FACTORS AND EDUCATE PATIENT/CAREGIVER ON STRATEGIES TO MINIMIZE THE RISK OF FALLING.] Future Scheduled Test ANEMIA MAN AGEMENT; RN TO ASSESS AND TEACH, CLOSED CIRCUIT SCREEN WATCHER/NURSE RECRUITER TO OBSERVE AND TEACH AND PROVIDE EDUCATION ON ANEMIA. [code = ANEMIA MANAGEMENT; RN TO ASSESS AND TEACH, CLOSED CIRCUIT SCREEN WATCHER/NURSE RECRUITER TO OBSERVE AND TEACH AND PROVIDE EDUCATION ON ANEMIA.] Future Scheduled Test PAIN MANAG EMENT; RN TO ASSESS AND TEACH, CLOSED CIRCUIT SCREEN WATCHER/NURSE RECRUITER TO OBSERVE AND TEACH AND PROVIDE EDUCATION ON PAIN MANAGEMENT TECHNIQUES. [code = PAIN MANAGEMENT; RN TO ASSESS AND TEACH, CLOSED CIRCUIT SCREEN WATCHER/NURSE RECRUITER TO OBSERVE AND TEACH AND PROVIDE EDUCATION ON PAIN MANAGEMENT TECHNIQUES.] Future Scheduled Test RN/NURSE RECRUITER/CLOSED CIRCUIT SCREEN WATCHER TO PERFORM/TEACH PATIENT/CAREGIVER WOUND CARE PRESSURE INJURY TO SACRAL AREA IRRIGATE/CLEANSE WITH WOUND CLEANSER/NORMAL SALINE. PAT DRY WITH 4X4 GAUZE, APPLY SILVADENE CREAM 1% AND CALCIUM ALGINATE MAY APPLY SKIN BARRIER TO PERIWOUND PRN TO PREVENT MACERATION AND PROTECT PERIWOUND COVER WITH FOAM DRESSING CHANGE DRESSING EVERY 2-3 TIMES A WEEK AND PRN FOR SOILAGE DRESSING [code = RN/NURSE RECRUITER/CLOSED CIRCUIT SCREEN WATCHER TO PERFORM/TEACH PATIENT/CAREGIVER WOUND CARE PRESSURE INJURY [...] Scheduled Test PRN VISITS ; NUMBER OF RN/NURSE RECRUITER/CLOSED CIRCUIT SCREEN WATCHER VISITS: 1 RN/NURSE RECRUITER/CLOSED CIRCUIT SCREEN WATCHER TO PERFORM: WOUND MANAGEMENT FOR THE FOLLOWING REASONS: COMPLICATIONS [code = PRN VISITS; NUMBER OF RN/NURSE RECRUITER/CLOSED CIRCUIT SCREEN WATCHER VISITS: 1 RN/NURSE RECRUITER/CLOSED CIRCUIT SCREEN WATCHER TO PERFORM: WOUND MANAGEMENT FOR THE FOLLOWING REASONS: COMPLICATIONS ] Future Scheduled Test CANCER MAN AGEMENT; RN TO ASSESS AND TEACH, CLOSED CIRCUIT SCREEN WATCHER/NURSE RECRUITER TO OBSERVE AND TEACH AND PROVIDE EDUCATION ON CANCER. [code = CANCER MANAGEMENT; RN TO ASSESS AND TEACH, CLOSED CIRCUIT SCREEN WATCHER/NURSE RECRUITER TO OBSERVE AND TEACH AND PROVIDE EDUCATION ON CANCER.] Future Scheduled Test RISK FOR H OSPITALIZATION; RN TO ASSESS/TEACH, CLOSED CIRCUIT SCREEN WATCHER/NURSE RECRUITER TO OBSERVE/TEACH PATIENT/CAREGIVER ON RISK FOR HOSPITALIZATION/EMERGENCY ROOM VISITS, TEACH SIGNS AND SYMPTOMS THAT PUT PATIENT AT RISK, WHEN TO NOTIFY NURSE/PHYSICIAN OF COMPLICATIONS/DECLINE, AND WHEN TO CALL 911. [code = RISK FOR HOSPITALIZATION; RN TO ASSESS/TEACH, CLOSED CIRCUIT SCREEN WATCHER/NURSE RECRUITER TO OBSERVE/TEACH PATIENT/CAREGIVER ON RISK FOR HOSPITALIZATION/EMERGENCY ROOM VISITS, TEACH SIGNS AND SYMPTOMS THAT PUT PATIENT AT RISK, WHEN TO NOTIFY NURSE/PHYSICIAN OF COMPLICATIONS/DECLINE, AND WHEN TO CALL 911.] Future Scheduled Test CARDIOVASC ULAR SYSTEM; RN TO ASSESS/TEACH, NURSE RECRUITER/CLOSED CIRCUIT SCREEN WATCHER TO OBSERVE/TEACH RELATED TO ALTERED CARDIOVASCULAR STATUS TO MINIMIZE COMPLICATIONS AND REDUCE HOSPITALIZATION. [code = CARDIOVASCULAR SYSTEM; RN TO ASSESS/TEACH, NURSE RECRUITER/CLOSED CIRCUIT SCREEN WATCHER TO OBSERVE/TEACH RELATED TO ALTERED CARDIOVASCULAR STATUS TO MINIMIZE COMPLICATIONS AND REDUCE HOSPITALIZATION.] Future Scheduled Test HYPERTENSI ON MANAGEMENT; RN TO ASSESS AND TEACH, NURSE RECRUITER/CLOSED CIRCUIT SCREEN WATCHER TO OBSERVE AND TEACH WARNING SIGNS AND SYMPTOMS TO AVOID HOSPITALIZATION. [code = HYPERTENSION MANAGEMENT; RN TO ASSESS AND TEACH, NURSE RECRUITER/CLOSED CIRCUIT SCREEN WATCHER TO OBSERVE AND TEACH WARNING SIGNS AND SYMPTOMS TO AVOID HOSPITALIZATION.] Future Scheduled Test SKIN INTEG RITY RN TO ASSESS AND TEACH, NURSE RECRUITER/CLOSED CIRCUIT SCREEN WATCHER TO OBSERVE AND TEACH INTEGUMENTARY STATUS TO IDENTIFY CHANGES AND INTERVENE TO MINIMIZE COMPLICATIONS. PROVIDE SKILLED TEACHING OF GENERAL WOUND AND SKIN CARE AND PREVENTION RELATED TO POTENTIAL FOR OR ACTUAL ALTERED SKIN INTEGRITY [code = SKIN INTEGRITY RN TO ASSESS AND TEACH, NURSE RECRUITER/CLOSED CIRCUIT SCREEN WATCHER TO OBSERVE AND TEACH INTEGUMENTARY STATUS TO IDENTIFY CHANGES AND INTERVENE TO MINIMIZE COMPLICATIONS. PROVIDE SKILLED TEACHING OF GENERAL WOUND AND SKIN CARE AND PREVENTION RELATED TO POTENTIAL FOR OR ACTUAL ALTERED SKIN INTEGRITY ] Future Scheduled Test RN TO ASSE SS AND TEACH, NURSE RECRUITER/CLOSED CIRCUIT SCREEN WATCHER TO OBSERVE AND TEACH INTEGUMENTARY STATUS RELATED [...] [code = RN TO ASSESS AND TEACH, NURSE RECRUITER/CLOSED CIRCUIT SCREEN WATCHER TO OBSERVE AND TEACH INTEGUMENTARY STATUS RELATED [...] CULAR TESTING PROTOCOL UP TO 3 PRN RN/NURSE RECRUITER VISITS MAY BE PERFORMED FOR S/S OF WOUND INFECTION/DETERIORATION/STAGNATION. RN TO ASSESS, NURSE RECRUITER/CLOSED CIRCUIT SCREEN WATCHER TO OBSERVE AND INITIATE PROTOCOL. RN/NURSE RECRUITER/CLOSED CIRCUIT SCREEN WATCHER TO INSTRUCT PATIENT AND/OR CAREGIVER ON S/S OF WOUND INFECTION/DETERIORATION/STAGNATION TO REPORT TO NURSE IF NEW OR WORSENING SYMPTOMS. RN/NURSE RECRUITER/CLOSED CIRCUIT SCREEN WATCHER TO OBTAIN MOLECULAR WOUND TESTING VIA SWAB COLLECTION PER POLICY. [id number] NOTIFY PROVIDER OF RESULTS AND OBTAIN FURTHER ORDERS. [code = WOUND MOLECULAR TESTING PROTOCOL UP TO 3 PRN RN/NURSE RECRUITER VISITS MAY BE PERFORMED FOR S/S OF WOUND INFECTION/DETERIORATION/STAGNATION. RN TO ASSESS, NURSE RECRUITER/CLOSED CIRCUIT SCREEN WATCHER TO OBSERVE AND INITIATE PROTOCOL. RN/NURSE RECRUITER/CLOSED CIRCUIT SCREEN WATCHER TO INSTRUCT PATIENT AND/OR CAREGIVER ON S/S OF WOUND INFECTION/DETERIORATION/STAGNATION TO REPORT TO NURSE IF NEW OR WORSENING SYMPTOMS. RN/NURSE RECRUITER/CLOSED CIRCUIT SCREEN WATCHER TO OBTAIN MOLECULAR WOUND TESTING VIA SWAB COLLECTION PER POLICY. [id number] NOTIFY PROVIDER OF RESULTS AND OBTAIN FURTHER ORDERS.] Future Scheduled Test AGENCY MAY PERFORM A RESUMPTION OF CARE VISIT FOLLOWING ANY HOSPITAL ADMISSION. PT TO EVALUATE, OBSERVE / ASSESS, AND MONITOR, GARMENT LOOPER TO OBSERVE AND MONITOR, PROVIDE SKILLED THERAPEUTIC INTERVENTION, ACTIVITY, EDUCATION, AND TRAINING TO ADDRESS; PT/GARMENT LOOPER TO PROVIDE GAIT TRAINING FOR IMPROVED MOBILITY AND /OR TO NORMALIZE GAIT PATTERN NEUROMUSCULAR RE-EDUCATION / BALANCE / POSTURAL CONTROL (PT) THERAPEUTIC EXERCISES AND ESTABLISHING A HOME EXERCISE PROGRAM (PT/GARMENT LOOPER) SIT TO/FROM STAND TRANSFERS (PT/GARMENT LOOPER) PT / GARMENT LOOPER TO MONITOR AND EDUCATE ON OXYGEN SATURATION DURING ADLS/IADLS, NOTIFY PHYSICIAN AND/OR THE RN CLINICAL BITE BLOCK MAKER FOR PHYSICIAN NOTIFICATION AND IF O2 SATS BELOW PHYSICIAN ORDERED PARAMETERS AFTER 10 MIN OF REST PT / GARMENT LOOPER MAY EDUCATE ON PAIN MANAGEMENT CLINICALLY INDICATED, INCLUDING NON-PHARMACOLOGICAL PAIN REDUCTION TECHNIQUES. PT / GARMENT LOOPER TO INSTRUCT PATIENT/CAREGIVER ON RISK FOR HOSPITALIZATION/EMERGENCY ROOM VISITS, TEACH SIGNS AND SYMPTOMS THAT PUT PATIENT AT RISK, WHEN TO NOTIFY NURSE/PHYSICIAN OF COMPLICATIONS/DECLINE, AND WHEN TO CALL 911. PT / GARMENT LOOPER TO EDUCATE ON HYPERTENSION SELF-MANAGEMENT PT TO ASSESS / GARMENT LOOPER TO MONITOR CARDIO/RESPIRATORY SYSTEM; AND NOTIFY THE PHYSICIAN AND/OR THE RN CLINICAL BITE BLOCK MAKER FOR PHYSICIAN NOTIFICATION FOR EARLY SIGNS AND SYMPTOMS OF EXACERBATION OR DETERIORATION. PT / GARMENT LOOPER TO EDUCATE ON PNEUMONIA / ASPIRATION PNEUMONIA SELF-MANAGEMENT. PT/GARMENT LOOPER TO IDENTIFY FALL RISK FACTORS; EDUCATE THE PATIENT/CAREGIVER ON WAYS TO REDUCE FALL RISK FACTORS AND ESTABLISH HOME EXERCISE PROGRAM TO MINIMIZE FALL RISK. MAY TEACH THE PATIENT FLOOR RECOVERY WHEN CLINICALLY APPROPRIATE PT / GARMENT LOOPER TO OBSERVE FOR EARLY SIGNS AND SYMPTOMS OF DEPRESSION OR DEPRESSION GETTING WORSE AND TO EDUCATE ON HOW TO FIND HELP. PT / GARMENT LOOPER TO EDUCATE ON HEART FAILURE SELF-MANAGEMENT PT / GARMENT LOOPER TO EDUCATE ON COPD SELF-MANAGEMENT [code = AGENCY MAY PERFORM A RESUMPTION OF CARE VISIT FOLLOWING ANY HOSPITAL ADMISSION. PT TO EVALUATE, OBSERVE / ASSESS, AND MONITOR, GARMENT LOOPER TO OBSERVE AND MONITOR, PROVIDE SKILLED THERAPEUTIC INTERVENTION, ACTIVITY, EDUCATION, AND TRAINING TO ADDRESS; PT/GARMENT LOOPER TO PROVIDE GAIT TRAINING FOR IMPROVED MOBILITY AND /OR TO NORMALIZE GAIT PATTERN NEUROMUSCULAR RE-EDUCATION / BALANCE / POSTURAL CONTROL (PT) THERAPEUTIC EXERCISES AND ESTABLISHING A HOME EXERCISE PROGRAM (PT/GARMENT LOOPER) SIT TO/FROM STAND TRANSFERS (PT/GARMENT LOOPER) PT / GARMENT LOOPER TO MONITOR AND EDUCATE ON OXYGEN SATURATION DURING ADLS/IADLS, NOTIFY PHYSICIAN AND/OR THE RN CLINICAL BITE BLOCK MAKER FOR PHYSICIAN NOTIFICATION AND IF O2 SATS BELOW PHYSICIAN ORDERED PARAMETERS AFTER 10 MIN OF REST PT / GARMENT LOOPER MAY EDUCATE ON PAIN MANAGEMENT CLINICALLY INDICATED, INCLUDING NON-PHARMACOLOGICAL PAIN REDUCTION TECHNIQUES. PT / GARMENT LOOPER TO INSTRUCT PATIENT/CAREGIVER ON RISK FOR HOSPITALIZATION/EMERGENCY ROOM VISITS, TEACH SIGNS AND SYMPTOMS THAT PUT PATIENT AT RISK, WHEN TO NOTIFY NURSE/PHYSICIAN OF COMPLICATIONS/DECLINE, AND WHEN TO CALL 911. PT / GARMENT LOOPER TO EDUCATE ON HYPERTENSION SELF-MANAGEMENT PT TO ASSESS / GARMENT LOOPER TO MONITOR CARDIO/RESPIRATORY SYSTEM; AND NOTIFY THE PHYSICIAN AND/OR THE RN CLINICAL BITE BLOCK MAKER FOR PHYSICIAN NOTIFICATION FOR EARLY SIGNS AND SYMPTOMS OF EXACERBATION OR DETERIORATION. PT / GARMENT LOOPER TO EDUCATE ON PNEUMONIA / ASPIRATION PNEUMONIA SELF-MANAGEMENT. PT/GARMENT LOOPER TO IDENTIFY FALL RISK FACTORS; EDUCATE THE PATIENT/CAREGIVER ON WAYS TO REDUCE FALL RISK FACTORS AND ESTABLISH HOME EXERCISE PROGRAM TO MINIMIZE FALL RISK. MAY TEACH THE PATIENT FLOOR RECOVERY WHEN CLINICALLY APPROPRIATE PT / GARMENT LOOPER TO OBSERVE FOR EARLY SIGNS AND SYMPTOMS OF DEPRESSION OR DEPRESSION GETTING WORSE AND TO EDUCATE ON HOW TO FIND HELP. PT / GARMENT LOOPER TO EDUCATE ON HEART FAILURE SELF-MANAGEMENT PT / GARMENT LOOPER TO EDUCATE ON COPD SELF-MANAGEMENT ] Future Scheduled Test AGENCY MAY PERFORM A RESUMPTION OF CARE VISIT FOLLOWING ANY HOSPITAL ADMISSION. OT TO EVALUATE, OBSERVE / ASSESS, AND MONITOR, MICHI TO OBSERVE AND MONITOR, PROVIDE SKILLED THERAPEUTIC INTERVENTION, ACTIVITY, EDUCATION, AND TRAINING TO ADDRESS SAFETY AND INDEPENDENCE OF ADLS AND FUNCTIONAL TRANSFERS IN HOME ENVIRONMENT. BATHING/SHOWERING (OT/MICHI) ACTIVITIES OF DAILY LIVING (OT/CUSHION SEWER) TOILET TRANSFER (OT/CUSHION SEWER) BATH/SHOWER TRANSFER (OT/MICHI) THERAPEUTIC EXERCISE (OT/MICHI) ENERGY CONSERVATION/ACTIVITY DEMAND (OT/MICHI) OT/CUSHION SEWER TO MONITOR AND EDUCATE ON OXYGEN SATURATION DURING ADLS/IADLS, NOTIFY PHYSICIAN AND/OR THE RN CLINICAL BITE BLOCK MAKER FOR PHYSICIAN NOTIFICATION AND IF O2 SATS BELOW 90% AFTER 10 MIN OF REST. OT / MICHI TO IDENTIFY FALL RISK FACTORS; EDUCATE THE PATIENT/CAREGIVER ON WAYS TO REDUCE FALL RISK FACTORS AND ESTABLISH HOME EXERCISE PROGRAM TO MINIMIZE FALL RISK. MAY TEACH THE PATIENT FLOOR RECOVERY WHEN CLINICALLY APPROPRIATE. OT/CUSHION SEWER TO EDUCATE ON HYPERTENSION SELF-MANAGEMENT OT/MICHI TO EDUCATE ON PNEUMONIA / ASPIRATION PNEUMONIA SELF-MANAGEMENT. HOME HEALTH AIDE SERVICE FOR ASSISTANCE WITH PERSONAL CARE, HYGIENE AND ACTIVITIES OF DAILY LIVING. OT TO ASSESS / MICHI TO MONITOR CARDIO/RESPIRATORY SYSTEM; AND NOTIFY THE PHYSICIAN AND/OR THE RN CLINICAL BITE BLOCK MAKER FOR PHYSICIAN NOTIFICATION FOR EARLY SIGNS AND SYMPTOMS OF EXACERBATION OR DETERORATION OT/MICHI TO EDUCATE ON COPD SELF-MANAGEMENT [code = AGENCY MAY PERFORM A RESUMPTION OF CARE VISIT FOLLOWING ANY HOSPITAL ADMISSION. OT TO EVALUATE, OBSERVE / ASSESS, AND MONITOR, CUSHION SEWER TO OBSERVE AND MONITOR, PROVIDE SKILLED THERAPEUTIC INTERVENTION, ACTIVITY, EDUCATION, AND TRAINING TO ADDRESS SAFETY AND INDEPENDENCE OF ADLS AND FUNCTIONAL TRANSFERS IN HOME ENVIRONMENT. BATHING/SHOWERING (OT/CUSHION SEWER) ACTIVITIES OF DAILY LIVING (OT/CUSHION SEWER) TOILET TRANSFER (OT/CUSHION SEWER) BATH/SHOWER TRANSFER (OT/CUSHION SEWER) THERAPEUTIC EXERCISE (OT/CUSHION SEWER) ENERGY CONSERVATION/ACTIVITY DEMAND (OT/CUSHION SEWER) OT/CUSHION SEWER TO MONITOR AND EDUCATE ON OXYGEN SATURATION DURING ADLS/IADLS, NOTIFY PHYSICIAN AND/OR THE RN CLINICAL BITE BLOCK MAKER FOR PHYSICIAN NOTIFICATION AND IF O2 SATS BELOW 90% AFTER 10 MIN OF REST. OT / MICHI TO IDENTIFY FALL RISK FACTORS; EDUCATE THE PATIENT/CAREGIVER ON WAYS TO REDUCE FALL RISK FACTORS AND ESTABLISH HOME EXERCISE PROGRAM TO MINIMIZE FALL RISK. MAY TEACH THE PATIENT FLOOR RECOVERY WHEN CLINICALLY APPROPRIATE. OT/MICHI TO EDUCATE ON HYPERTENSION SELF-MANAGEMENT OT/CUSHION SEWER TO EDUCATE ON PNEUMONIA / ASPIRATION PNEUMONIA SELF-MANAGEMENT. HOME HEALTH AIDE SERVICE FOR ASSISTANCE WITH PERSONAL CARE, HYGIENE AND ACTIVITIES OF DAILY LIVING. OT TO ASSESS / MICHI TO MONITOR CARDIO/RESPIRATORY SYSTEM; AND NOTIFY THE PHYSICIAN AND/OR THE RN CLINICAL BITE BLOCK MAKER FOR PHYSICIAN NOTIFICATION FOR EARLY SIGNS AND SYMPTOMS OF EXACERBATION OR DETERORATION OT/CUSHION SEWER TO EDUCATE ON COPD SELF-MANAGEMENT ] Goal [...] End Date/Time Encounter Type Admission Type Attending [facility] Facility Care Department Encounter ID Discharge Date Discharge Status Discharge Condition Discharge Reason Percent Goals Met 2024-06-12 00:00:00 2024-08-10 00:00:00 Outpatient NEW ADMISSION [facility] [id number] 14.00
--- OUTSIDE RECORDS SUMMARY | 2024-06-26 20:34 | XMS_ITS | Continuity of Care Document ---
Author Organization [facility] Address [address] [place] [address] [address] [place] [address] Phone Care Team Providers Care Electric Car Operator Name Role Phone Woods OD, Camilo Unavailable Unavailable Procedures Procedure Date Eye Exam, New Patient Refraction Refraction Advance Directives Directive Yes / No Effective Date File Name No Information Encounters Encounter Description Practice Location Reason(s) For Visit Diagnoses Date Provider Providers Copied on Encounter [facility], [id number] [place] [address] [address], [place], [place], [id number], [place] tel:[phone] [facility] [place] No Information [phone] Woods OD Camilo. [address] [facility] [address] , [address], [place], [address], [place]. tel:[phone] Family History Family Member Type Diagnosis Age At Onset No Information Payers Payer name Insurance type Covered constitution party ID Authoriza tion(s) Medicare [facility] [id number] [employer] [place] Commercial [id number] Social History Type Description Quantity Date Captured [...]
--- OUTSIDE RECORDS SUMMARY | 2024-06-26 20:34 | XMS_ITS | Clinical Summary ---
Author Organization Unknown Care Team Providers Care Supervisor Wet End Name Role Phone GLADYS PA, CANDICE Unavailable Unavailable CARMENCITA RN, ZULY Unavailable Unavaildomingo EVANGELISTA PT, ADITI Unavailable Unavailable JOSE SANTANAN, KALANI Unavailable Unavailable ELZA COTTON ROLL PACKER, JEFF Unavailable Unavailable ZEKE OT, CANDIS Unavailable Unavailable ANAIS MERCER Unavailable Unavailable Payers Payer Name Policy Type Policy Number Effective Date Expira tion Date MEDICARE.[facility] [id number] Problems Condition Name Condition Details Condition Category [...] 04-05 00:00: 00 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 [...] 200 mg tablet 06-12 00:00: 00 Yes [id number] NEEDED FOR MILD PAIN 1 tablet EVERY 6 HOURS 1 tablet EVERY 6 HOURS (route: oral) Med Classific ation: Analgesic , Anti-infl ammatory or Antipyret ic Flomax 0.4 mg capsule 06-12 00:00: 00 Yes [id number] BPH 1 capsule DAILY 1 capsule DAILY (route: oral) Med Classific ation: Genitouri nary Therapy hydroxyzine HCl 25 mg tablet 06-12 00:00: 00 Yes [id number] NEEDED FOR MOOD 1 tablet EVERY 8 HOURS 1 tablet EVERY 8 HOURS (route: oral) Med Classific ation: Central Nervous System Agents losartan 50 mg tablet 06-12 00:00: 00 Yes [id number] HIGH BLOOD PRESSURE 1 tablet DAILY 1 tablet DAILY (route: oral) Med Classific ation: Cardiovas cular Therapy Agents sertraline 50 mg tablet 06-12 00:00: 00 Yes [id number] MOOD 1 tablet DAILY 1 tablet DAILY (route: oral) Med Classific ation: Central Nervous System Agents Silvadene 1 % topical cream 06-12 00:00: 00 Yes [id number] WITH WOUND CARE AND NEEDED IF DRESSING BECOMED SOILED OR DISLODGED 1 inch DAILY 1 inch DAILY (route: topical) Med Classific ation: Dermatolo gical trazodone 50 mg tablet 06-12 00:00: 00 Yes [id number] SLEEP 0.5 tablet BEDTIME 0.5 tablet BEDTIME [...] CONSULTING PHYSICIANS RN TO OBSERVE AND ASSESS, RETANNER/CLOTH BURLER TO OBSERVE FOR RISK FOR FALLS AND INSTRUCT IN FALL PREVENTION, HOME SAFETY, MEDICATION MANAGEMENT, INFECTION PREVENTION, AND NUTRITION MANAGEMENT. RN/RETANNER/CLOTH BURLER NURSE MAY PERFORM O2 SATURATION LEVEL ON ADMISSION AND PRN FOR EVERY VISIT FOR RN TO ASSESS/RETANNER TO OBSERVE PATIENT, WITH NOTIFICATION TO THE PHYSICIAN IF SATURATION IS 90% IN THE ABSENCE OF MORE SPECIFIC PARAMETERS FROM THE PHYSICIAN. AGENCY MAY PERFORM A RESUMPTION OF CARE VISIT FOLLOWING ANY HOSPITAL ADMISSION. RN/RETANNER/CLOTH BURLER TO MONITOR CO-MORBID CONDITIONS LISTED ON THE [...] CONSULTING PHYSICIANS RN TO OBSERVE AND ASSESS, RETANNER/CLOTH BURLER TO OBSERVE FOR RISK FOR FALLS AND INSTRUCT IN FALL PREVENTION, HOME SAFETY, MEDICATION MANAGEMENT, INFECTION PREVENTION, AND NUTRITION MANAGEMENT. RN/RETANNER/CLOTH BURLER NURSE MAY PERFORM O2 SATURATION LEVEL ON ADMISSION AND PRN FOR EVERY VISIT FOR RN TO ASSESS/RETANNER TO OBSERVE PATIENT, WITH NOTIFICATION TO THE PHYSICIAN IF SATURATION IS 90% IN THE ABSENCE OF MORE SPECIFIC PARAMETERS FROM THE PHYSICIAN. AGENCY MAY PERFORM A RESUMPTION OF CARE VISIT FOLLOWING ANY HOSPITAL ADMISSION. RN/RETANNER/CLOTH BURLER TO MONITOR CO-MORBID CONDITIONS LISTED ON THE [...] TREATMENT ] Future Scheduled Test MEDICATION MANAGEMENT; RN/RETANNER/CLOTH BURLER TO REVIEW MEDICATIONS FOR INTERACTIONS, EFFECTIVENESS OF DRUG THERAPY, AND SIGNS/SYMPTOMS OF ADVERSE REACTIONS. MAY INSTRUCT AND REINFORCE MEDICATION TEACHING RELATED TO THE USE OF MEDICATIONS, DOSAGE, FREQUENCY, PURPOSE, SIDE EFFECTS, AND TO REPORT COMPLICATIONS. [code = MEDICATION MANAGEMENT; RN/RETANNER/CLOTH BURLER TO REVIEW MEDICATIONS FOR INTERACTIONS, EFFECTIVENESS OF DRUG THERAPY, AND SIGNS/SYMPTOMS OF ADVERSE REACTIONS. MAY INSTRUCT AND REINFORCE MEDICATION TEACHING RELATED TO THE USE OF MEDICATIONS, DOSAGE, FREQUENCY, PURPOSE, SIDE EFFECTS, AND TO REPORT COMPLICATIONS.] Future Scheduled Test RESPIRATOR Y SYSTEM MANAGEMENT; RN TO ASSESS AND TEACH, RETANNER/CLOTH BURLER TO OBSERVE AND TEACH RELATED TO ALTERED RESPIRATORY STATUS TO MINIMIZE COMPLICATIONS AND REDUCE HOSPITALIZATION. [code = RESPIRATORY SYSTEM MANAGEMENT; RN TO ASSESS AND TEACH, RETANNER/CLOTH BURLER TO OBSERVE AND TEACH RELATED TO ALTERED RESPIRATORY STATUS TO MINIMIZE COMPLICATIONS AND REDUCE HOSPITALIZATION. ] Future Scheduled Test COPD MANAG EMENT; RN TO ASSESS AND TEACH, RETANNER/CLOTH BURLER TO OBSERVE AND TEACH SIGNS/SYMPTOMS OF COPD EXACERBATION AND PROVIDE EARLY INTERVENTIONS TO MINIMIZE RISK OF HOSPITALIZATION. RN/RETANNER/CLOTH BURLER TO INSTRUCT ON SELF-CARE MANAGEMENT INCLUDING BREATHING TECHNIQUES, AIRWAY CLEARANCE, AND PROPER USE OF COPD MEDICATIONS. RN TO ASSESS AND TEACH, RETANNER/CLOTH BURLER TO OBSERVE AND TEACH PATIENT/CAREGIVER ABILITY TO MONITOR AND RECORD VITAL SIGNS INCLUDING PULSE OXIMETRY AND BLOOD PRESSURE. PULSE OXIMETER AND BP MONITOR TO BE PROVIDED IF NEEDED [code = COPD MANAGEMENT; RN TO ASSESS AND TEACH, RETANNER/CLOTH BURLER TO OBSERVE AND TEACH SIGNS/SYMPTOMS OF COPD EXACERBATION AND PROVIDE EARLY INTERVENTIONS TO MINIMIZE RISK OF HOSPITALIZATION. RN/RETANNER/CLOTH BURLER TO INSTRUCT ON SELF-CARE MANAGEMENT INCLUDING BREATHING TECHNIQUES, AIRWAY CLEARANCE, AND PROPER USE OF COPD MEDICATIONS. RN TO ASSESS AND TEACH, RETANNER/CLOTH BURLER TO OBSERVE AND TEACH PATIENT/CAREGIVER ABILITY TO MONITOR AND RECORD VITAL SIGNS INCLUDING PULSE OXIMETRY AND BLOOD PRESSURE. PULSE OXIMETER AND BP MONITOR TO BE PROVIDED IF NEEDED ] Future Scheduled Test PNEUMONIA MANAGEMENT; RN TO ASSESS AND TEACH, RETANNER/CLOTH BURLER TO OBSERVE AND TEACH SIGNS OF PNEUMONIA EXACERBATION AND PROVIDE EARLY INTERVENTIONS TO MINIMIZE RISK OF HOSPITALIZATION. [code = PNEUMONIA MANAGEMENT; RN TO ASSESS AND TEACH, RETANNER/CLOTH BURLER TO OBSERVE AND TEACH SIGNS OF PNEUMONIA EXACERBATION AND PROVIDE EARLY INTERVENTIONS TO MINIMIZE RISK OF HOSPITALIZATION. ] Future Scheduled Test FALL REDUC TION MANAGEMENT; RN TO ASSESS AND OBSERVE, RETANNER/CLOTH BURLER TO OBSERVE FALL RISK FACTORS AND EDUCATE PATIENT/CAREGIVER ON STRATEGIES TO MINIMIZE THE RISK OF FALLING. [code = FALL REDUCTION MANAGEMENT; RN TO ASSESS AND OBSERVE, RETANNER/CLOTH BURLER TO OBSERVE FALL RISK FACTORS AND EDUCATE PATIENT/CAREGIVER ON STRATEGIES TO MINIMIZE THE RISK OF FALLING.] Future Scheduled Test ANEMIA MAN AGEMENT; RN TO ASSESS AND TEACH, CLOTH BURLER/RETANNER TO OBSERVE AND TEACH AND PROVIDE EDUCATION ON ANEMIA. [code = ANEMIA MANAGEMENT; RN TO ASSESS AND TEACH, CLOTH BURLER/RETANNER TO OBSERVE AND TEACH AND PROVIDE EDUCATION ON ANEMIA.] Future Scheduled Test PAIN MANAG EMENT; RN TO ASSESS AND TEACH, CLOTH BURLER/RETANNER TO OBSERVE AND TEACH AND PROVIDE EDUCATION ON PAIN MANAGEMENT TECHNIQUES. [code = PAIN MANAGEMENT; RN TO ASSESS AND TEACH, CLOTH BURLER/RETANNER TO OBSERVE AND TEACH AND PROVIDE EDUCATION ON PAIN MANAGEMENT TECHNIQUES.] Future Scheduled Test RN/RETANNER/CLOTH BURLER TO PERFORM/TEACH PATIENT/CAREGIVER WOUND CARE PRESSURE INJURY TO SACRAL AREA IRRIGATE/CLEANSE WITH WOUND CLEANSER/NORMAL SALINE. PAT DRY WITH 4X4 GAUZE, APPLY SILVADENE CREAM 1% AND CALCIUM ALGINATE MAY APPLY SKIN BARRIER TO PERIWOUND PRN TO PREVENT MACERATION AND PROTECT PERIWOUND COVER WITH FOAM DRESSING CHANGE DRESSING EVERY 2-3 TIMES A WEEK AND PRN FOR SOILAGE DRESSING [code = RN/RETANNER/CLOTH BURLER TO PERFORM/TEACH PATIENT/CAREGIVER WOUND CARE PRESSURE INJURY [...] Scheduled Test PRN VISITS ; NUMBER OF RN/RETANNER/CLOTH BURLER VISITS: 1 RN/RETANNER/CLOTH BURLER TO PERFORM: WOUND MANAGEMENT FOR THE FOLLOWING REASONS: COMPLICATIONS [code = PRN VISITS; NUMBER OF RN/RETANNER/CLOTH BURLER VISITS: 1 RN/RETANNER/CLOTH BURLER TO PERFORM: WOUND MANAGEMENT FOR THE FOLLOWING REASONS: COMPLICATIONS ] Future Scheduled Test CANCER MAN AGEMENT; RN TO ASSESS AND TEACH, CLOTH BURLER/RETANNER TO OBSERVE AND TEACH AND PROVIDE EDUCATION ON CANCER. [code = CANCER MANAGEMENT; RN TO ASSESS AND TEACH, CLOTH BURLER/RETANNER TO OBSERVE AND TEACH AND PROVIDE EDUCATION ON CANCER.] Future Scheduled Test RISK FOR H OSPITALIZATION; RN TO ASSESS/TEACH, CLOTH BURLER/RETANNER TO OBSERVE/TEACH PATIENT/CAREGIVER ON RISK FOR HOSPITALIZATION/EMERGENCY ROOM VISITS, TEACH SIGNS AND SYMPTOMS THAT PUT PATIENT AT RISK, WHEN TO NOTIFY NURSE/PHYSICIAN OF COMPLICATIONS/DECLINE, AND WHEN TO CALL 911. [code = RISK FOR HOSPITALIZATION; RN TO ASSESS/TEACH, CLOTH BURLER/RETANNER TO OBSERVE/TEACH PATIENT/CAREGIVER ON RISK FOR HOSPITALIZATION/EMERGENCY ROOM VISITS, TEACH SIGNS AND SYMPTOMS THAT PUT PATIENT AT RISK, WHEN TO NOTIFY NURSE/PHYSICIAN OF COMPLICATIONS/DECLINE, AND WHEN TO CALL 911.] Future Scheduled Test CARDIOVASC ULAR SYSTEM; RN TO ASSESS/TEACH, RETANNER/CLOTH BURLER TO OBSERVE/TEACH RELATED TO ALTERED CARDIOVASCULAR STATUS TO MINIMIZE COMPLICATIONS AND REDUCE HOSPITALIZATION. [code = CARDIOVASCULAR SYSTEM; RN TO ASSESS/TEACH, RETANNER/CLOTH BURLER TO OBSERVE/TEACH RELATED TO ALTERED CARDIOVASCULAR STATUS TO MINIMIZE COMPLICATIONS AND REDUCE HOSPITALIZATION.] Future Scheduled Test HYPERTENSI ON MANAGEMENT; RN TO ASSESS AND TEACH, RETANNER/CLOTH BURLER TO OBSERVE AND TEACH WARNING SIGNS AND SYMPTOMS TO AVOID HOSPITALIZATION. [code = HYPERTENSION MANAGEMENT; RN TO ASSESS AND TEACH, RETANNER/CLOTH BURLER TO OBSERVE AND TEACH WARNING SIGNS AND SYMPTOMS TO AVOID HOSPITALIZATION.] Future Scheduled Test SKIN INTEG RITY RN TO ASSESS AND TEACH, RETANNER/CLOTH BURLER TO OBSERVE AND TEACH INTEGUMENTARY STATUS TO IDENTIFY CHANGES AND INTERVENE TO MINIMIZE COMPLICATIONS. PROVIDE SKILLED TEACHING OF GENERAL WOUND AND SKIN CARE AND PREVENTION RELATED TO POTENTIAL FOR OR ACTUAL ALTERED SKIN INTEGRITY [code = SKIN INTEGRITY RN TO ASSESS AND TEACH, RETANNER/CLOTH BURLER TO OBSERVE AND TEACH INTEGUMENTARY STATUS TO IDENTIFY CHANGES AND INTERVENE TO MINIMIZE COMPLICATIONS. PROVIDE SKILLED TEACHING OF GENERAL WOUND AND SKIN CARE AND PREVENTION RELATED TO POTENTIAL FOR OR ACTUAL ALTERED SKIN INTEGRITY ] Future Scheduled Test RN TO ASSE SS AND TEACH, RETANNER/CLOTH BURLER TO OBSERVE AND TEACH INTEGUMENTARY STATUS RELATED [...] [code = RN TO ASSESS AND TEACH, RETANNER/CLOTH BURLER TO OBSERVE AND TEACH INTEGUMENTARY STATUS RELATED [...] CULAR TESTING PROTOCOL UP TO 3 PRN RN/RETANNER VISITS MAY BE PERFORMED FOR S/S OF WOUND INFECTION/DETERIORATION/STAGNATION. RN TO ASSESS, RETANNER/CLOTH BURLER TO OBSERVE AND INITIATE PROTOCOL. RN/RETANNER/CLOTH BURLER TO INSTRUCT PATIENT AND/OR CAREGIVER ON S/S OF WOUND INFECTION/DETERIORATION/STAGNATION TO REPORT TO NURSE IF NEW OR WORSENING SYMPTOMS. RN/RETANNER/CLOTH BURLER TO OBTAIN MOLECULAR WOUND TESTING VIA SWAB COLLECTION PER POLICY. [id number] NOTIFY PROVIDER OF RESULTS AND OBTAIN FURTHER ORDERS. [code = WOUND MOLECULAR TESTING PROTOCOL UP TO 3 PRN RN/RETANNER VISITS MAY BE PERFORMED FOR S/S OF WOUND INFECTION/DETERIORATION/STAGNATION. RN TO ASSESS, RETANNER/CLOTH BURLER TO OBSERVE AND INITIATE PROTOCOL. RN/RETANNER/CLOTH BURLER TO INSTRUCT PATIENT AND/OR CAREGIVER ON S/S OF WOUND INFECTION/DETERIORATION/STAGNATION TO REPORT TO NURSE IF NEW OR WORSENING SYMPTOMS. RN/RETANNER/CLOTH BURLER TO OBTAIN MOLECULAR WOUND TESTING VIA SWAB COLLECTION PER POLICY. [id number] NOTIFY PROVIDER OF RESULTS AND OBTAIN FURTHER ORDERS.] Future Scheduled Test AGENCY MAY PERFORM A RESUMPTION OF CARE VISIT FOLLOWING ANY HOSPITAL ADMISSION. PT TO EVALUATE, OBSERVE / ASSESS, AND MONITOR, COTTON ROLL PACKER TO OBSERVE AND MONITOR, PROVIDE SKILLED THERAPEUTIC INTERVENTION, ACTIVITY, EDUCATION, AND TRAINING TO ADDRESS; PT/COTTON ROLL PACKER TO PROVIDE GAIT TRAINING FOR IMPROVED MOBILITY AND /OR TO NORMALIZE GAIT PATTERN NEUROMUSCULAR RE-EDUCATION / BALANCE / POSTURAL CONTROL (PT) THERAPEUTIC EXERCISES AND ESTABLISHING A HOME EXERCISE PROGRAM (PT/COTTON ROLL PACKER) SIT TO/FROM STAND TRANSFERS (PT/COTTON ROLL PACKER) PT / COTTON ROLL PACKER TO MONITOR AND EDUCATE ON OXYGEN SATURATION DURING ADLS/IADLS, NOTIFY PHYSICIAN AND/OR THE RN CLINICAL RATING OFFICER FOR PHYSICIAN NOTIFICATION AND IF O2 SATS BELOW PHYSICIAN ORDERED PARAMETERS AFTER 10 MIN OF REST PT / COTTON ROLL PACKER MAY EDUCATE ON PAIN MANAGEMENT CLINICALLY INDICATED, INCLUDING NON-PHARMACOLOGICAL PAIN REDUCTION TECHNIQUES. PT / COTTON ROLL PACKER TO INSTRUCT PATIENT/CAREGIVER ON RISK FOR HOSPITALIZATION/EMERGENCY ROOM VISITS, TEACH SIGNS AND SYMPTOMS THAT PUT PATIENT AT RISK, WHEN TO NOTIFY NURSE/PHYSICIAN OF COMPLICATIONS/DECLINE, AND WHEN TO CALL 911. PT / COTTON ROLL PACKER TO EDUCATE ON HYPERTENSION SELF-MANAGEMENT PT TO ASSESS / COTTON ROLL PACKER TO MONITOR CARDIO/RESPIRATORY SYSTEM; AND NOTIFY THE PHYSICIAN AND/OR THE RN CLINICAL RATING OFFICER FOR PHYSICIAN NOTIFICATION FOR EARLY SIGNS AND SYMPTOMS OF EXACERBATION OR DETERIORATION. PT / COTTON ROLL PACKER TO EDUCATE ON PNEUMONIA / ASPIRATION PNEUMONIA SELF-MANAGEMENT. PT/COTTON ROLL PACKER TO IDENTIFY FALL RISK FACTORS; EDUCATE THE PATIENT/CAREGIVER ON WAYS TO REDUCE FALL RISK FACTORS AND ESTABLISH HOME EXERCISE PROGRAM TO MINIMIZE FALL RISK. MAY TEACH THE PATIENT FLOOR RECOVERY WHEN CLINICALLY APPROPRIATE PT / COTTON ROLL PACKER TO OBSERVE FOR EARLY SIGNS AND SYMPTOMS OF DEPRESSION OR DEPRESSION GETTING WORSE AND TO EDUCATE ON HOW TO FIND HELP. PT / COTTON ROLL PACKER TO EDUCATE ON HEART FAILURE SELF-MANAGEMENT PT / COTTON ROLL PACKER TO EDUCATE ON COPD SELF-MANAGEMENT [code = AGENCY MAY PERFORM A RESUMPTION OF CARE VISIT FOLLOWING ANY HOSPITAL ADMISSION. PT TO EVALUATE, OBSERVE / ASSESS, AND MONITOR, COTTON ROLL PACKER TO OBSERVE AND MONITOR, PROVIDE SKILLED THERAPEUTIC INTERVENTION, ACTIVITY, EDUCATION, AND TRAINING TO ADDRESS; PT/COTTON ROLL PACKER TO PROVIDE GAIT TRAINING FOR IMPROVED MOBILITY AND /OR TO NORMALIZE GAIT PATTERN NEUROMUSCULAR RE-EDUCATION / BALANCE / POSTURAL CONTROL (PT) THERAPEUTIC EXERCISES AND ESTABLISHING A HOME EXERCISE PROGRAM (PT/COTTON ROLL PACKER) SIT TO/FROM STAND TRANSFERS (PT/COTTON ROLL PACKER) PT / COTTON ROLL PACKER TO MONITOR AND EDUCATE ON OXYGEN SATURATION DURING ADLS/IADLS, NOTIFY PHYSICIAN AND/OR THE RN CLINICAL RATING OFFICER FOR PHYSICIAN NOTIFICATION AND IF O2 SATS BELOW PHYSICIAN ORDERED PARAMETERS AFTER 10 MIN OF REST PT / COTTON ROLL PACKER MAY EDUCATE ON PAIN MANAGEMENT CLINICALLY INDICATED, INCLUDING NON-PHARMACOLOGICAL PAIN REDUCTION TECHNIQUES. PT / COTTON ROLL PACKER TO INSTRUCT PATIENT/CAREGIVER ON RISK FOR HOSPITALIZATION/EMERGENCY ROOM VISITS, TEACH SIGNS AND SYMPTOMS THAT PUT PATIENT AT RISK, WHEN TO NOTIFY NURSE/PHYSICIAN OF COMPLICATIONS/DECLINE, AND WHEN TO CALL 911. PT / COTTON ROLL PACKER TO EDUCATE ON HYPERTENSION SELF-MANAGEMENT PT TO ASSESS / COTTON ROLL PACKER TO MONITOR CARDIO/RESPIRATORY SYSTEM; AND NOTIFY THE PHYSICIAN AND/OR THE RN CLINICAL RATING OFFICER FOR PHYSICIAN NOTIFICATION FOR EARLY SIGNS AND SYMPTOMS OF EXACERBATION OR DETERIORATION. PT / COTTON ROLL PACKER TO EDUCATE ON PNEUMONIA / ASPIRATION PNEUMONIA SELF-MANAGEMENT. PT/COTTON ROLL PACKER TO IDENTIFY FALL RISK FACTORS; EDUCATE THE PATIENT/CAREGIVER ON WAYS TO REDUCE FALL RISK FACTORS AND ESTABLISH HOME EXERCISE PROGRAM TO MINIMIZE FALL RISK. MAY TEACH THE PATIENT FLOOR RECOVERY WHEN CLINICALLY APPROPRIATE PT / COTTON ROLL PACKER TO OBSERVE FOR EARLY SIGNS AND SYMPTOMS OF DEPRESSION OR DEPRESSION GETTING WORSE AND TO EDUCATE ON HOW TO FIND HELP. PT / COTTON ROLL PACKER TO EDUCATE ON HEART FAILURE SELF-MANAGEMENT PT / COTTON ROLL PACKER TO EDUCATE ON COPD SELF-MANAGEMENT ] Future Scheduled Test AGENCY MAY PERFORM A RESUMPTION OF CARE VISIT FOLLOWING ANY HOSPITAL ADMISSION. OT TO EVALUATE, OBSERVE / ASSESS, AND MONITOR, MICHI TO OBSERVE AND MONITOR, PROVIDE SKILLED THERAPEUTIC INTERVENTION, ACTIVITY, EDUCATION, AND TRAINING TO ADDRESS SAFETY AND INDEPENDENCE OF ADLS AND FUNCTIONAL TRANSFERS IN HOME ENVIRONMENT. BATHING/SHOWERING (OT/MICHI) ACTIVITIES OF DAILY LIVING (OT/ACID TANK LINER) TOILET TRANSFER (OT/ACID TANK LINER) BATH/SHOWER TRANSFER (OT/MICHI) THERAPEUTIC EXERCISE (OT/MICHI) ENERGY CONSERVATION/ACTIVITY DEMAND (OT/MICHI) OT/ACID TANK LINER TO MONITOR AND EDUCATE ON OXYGEN SATURATION DURING ADLS/IADLS, NOTIFY PHYSICIAN AND/OR THE RN CLINICAL RATING OFFICER FOR PHYSICIAN NOTIFICATION AND IF O2 SATS BELOW 90% AFTER 10 MIN OF REST. OT / MIHCI TO IDENTIFY FALL RISK FACTORS; EDUCATE THE PATIENT/CAREGIVER ON WAYS TO REDUCE FALL RISK FACTORS AND ESTABLISH HOME EXERCISE PROGRAM TO MINIMIZE FALL RISK. MAY TEACH THE PATIENT FLOOR RECOVERY WHEN CLINICALLY APPROPRIATE. OT/ACID TANK LINER TO EDUCATE ON HYPERTENSION SELF-MANAGEMENT OT/MICHI TO EDUCATE ON PNEUMONIA / ASPIRATION PNEUMONIA SELF-MANAGEMENT. HOME HEALTH AIDE SERVICE FOR ASSISTANCE WITH PERSONAL CARE, HYGIENE AND ACTIVITIES OF DAILY LIVING. OT TO ASSESS / MICHI TO MONITOR CARDIO/RESPIRATORY SYSTEM; AND NOTIFY THE PHYSICIAN AND/OR THE RN CLINICAL RATING OFFICER FOR PHYSICIAN NOTIFICATION FOR EARLY SIGNS AND SYMPTOMS OF EXACERBATION OR DETERORATION OT/MICHI TO EDUCATE ON COPD SELF-MANAGEMENT [code = AGENCY MAY PERFORM A RESUMPTION OF CARE VISIT FOLLOWING ANY HOSPITAL ADMISSION. OT TO EVALUATE, OBSERVE / ASSESS, AND MONITOR, ACID TANK LINER TO OBSERVE AND MONITOR, PROVIDE SKILLED THERAPEUTIC INTERVENTION, ACTIVITY, EDUCATION, AND TRAINING TO ADDRESS SAFETY AND INDEPENDENCE OF ADLS AND FUNCTIONAL TRANSFERS IN HOME ENVIRONMENT. BATHING/SHOWERING (OT/ACID TANK LINER) ACTIVITIES OF DAILY LIVING (OT/ACID TANK LINER) TOILET TRANSFER (OT/ACID TANK LINER) BATH/SHOWER TRANSFER (OT/ACID TANK LINER) THERAPEUTIC EXERCISE (OT/ACID TANK LINER) ENERGY CONSERVATION/ACTIVITY DEMAND (OT/ACID TANK LINER) OT/ACID TANK LINER TO MONITOR AND EDUCATE ON OXYGEN SATURATION DURING ADLS/IADLS, NOTIFY PHYSICIAN AND/OR THE RN CLINICAL RATING OFFICER FOR PHYSICIAN NOTIFICATION AND IF O2 SATS BELOW 90% AFTER 10 MIN OF REST. OT / MICHI TO IDENTIFY FALL RISK FACTORS; EDUCATE THE PATIENT/CAREGIVER ON WAYS TO REDUCE FALL RISK FACTORS AND ESTABLISH HOME EXERCISE PROGRAM TO MINIMIZE FALL RISK. MAY TEACH THE PATIENT FLOOR RECOVERY WHEN CLINICALLY APPROPRIATE. OT/MICHI TO EDUCATE ON HYPERTENSION SELF-MANAGEMENT OT/ACID TANK LINER TO EDUCATE ON PNEUMONIA / ASPIRATION PNEUMONIA SELF-MANAGEMENT. HOME HEALTH AIDE SERVICE FOR ASSISTANCE WITH PERSONAL CARE, HYGIENE AND ACTIVITIES OF DAILY LIVING. OT TO ASSESS / MICHI TO MONITOR CARDIO/RESPIRATORY SYSTEM; AND NOTIFY THE PHYSICIAN AND/OR THE RN CLINICAL RATING OFFICER FOR PHYSICIAN NOTIFICATION FOR EARLY SIGNS AND SYMPTOMS OF EXACERBATION OR DETERORATION OT/ACID TANK LINER TO EDUCATE ON COPD SELF-MANAGEMENT ] Goal [...] End Date/Time Encounter Type Admission Type Attending [facility] Care Department Encounter ID Discharge Date Discharge Status Discharge Condition Discharge Reason Percent Goals Met 2024-06-12 00:00:00 2024-08-10 00:00:00 Outpatient NEW ADMISSION ZUL[facility] [id number] 14.00
[2024-06-26] MEDS: IPRATROPIUM 0.5 MG/ALBUTEROL SULFATE 2.5 MG AMPUL.NEB 3 ML INHALATION (20:41)
[2024-06-26 20:42] VITALS: PULSE 64; RESP 16
[2024-06-26 20:51] VITALS: PULSE 71; RESP 16
[2024-06-26 21:19] VITALS: O2SAT 99
[2024-06-26 21:49] VITALS: BP 105/60; PULSE 74; RESP 16; O2SAT 96
== END 2024-06-26 21:50 | disposition home or self-care (01) ==
PROVIDERS: Registered Nurse; Emergency Provider Emergency Medicine; PCP Emergency Medicine
DX: J18.9 Pneumonia, unspecified organism (principal); E78.5 Hyperlipidemia, unspecified; I10 Essential (primary) hypertension; I25.10 Atherosclerotic heart disease of native coronary artery without angina pectoris; Z85.89 Personal history of malignant neoplasm of other organs and systems; Z87.891 Personal history of nicotine dependence
CPT/HCPCS: 36415; 80053; 83735; 83880; 84484; 85025; 85610; 85730; 93005; 94640; 99284

== ENCOUNTER 2024-07-25 07:46 | Outpatient (CLI) | payer MEDICARE, OTHER, SELFPAY ==
--- NOTE | ~2024-07-25 | XR_ITS ---
Clinical Indication: Cough PA and lateral views of the chest: Comparison: 06/26/2024 Findings: Small right pleural effusion present. Linear scarring or atelectasis present left lung base . Probable COPD. Cardiomediastinal silhouette is within normal limits. Bones and soft tissues are un remarkable. Impression: Small right pleural effusion. COPD. Discoid scarring or atelectasis left lung base. Reviewed, dictated and finalized at location . Impression: Small right pleural effusion. COPD. Discoid scarring or atelectasis left lung base.
--- OUTSIDE RECORDS SUMMARY | 2024-07-25 07:55 | XMS_ITS | Clinical Summary ---
Author Organization Unknown Care Team Providers Care Registered Nurses Name Role Phone GLADYS PA, CANDICE Unavailable Unavailable CARMENCITA RN, ZULY Unavailable Unavailabl e TONJA PT, ADITI Unavailable Unavailable JOSE SANTANAN, KALANI Unavailable Unavailable ZEKE OT, CANDIS Unavailable Unavailable RUSLAN, YAUNICA Unavailable Unavailable RACHEL RURAL SERVICE ENGINEER, ALEXIA Unavailable Unavailabl e Payers Payer Name Policy Type Policy Number Effective Date Expira tion Date MEDICARE.[facility] [id number] Problems Condition Name Condition Details Condition Category Status Onset Date Resolution Date Last Treatment Date Treating Clinician Comments 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[place], STAGE 3 Active 310 00:00: 00 CHR OBSTRUCTIVE PULMON DISEASE WITH (ACUTE) LOWER RESP INFCT Active 04-17 00:00: 00 PNEUMONIA, UNSPECIFIED ORGANISM Active 04-17 00:00: 00 HYPERTENSIVE HEART DISEASE WITH HEART FAILURE Active 04-05 00:00: 00 UNSPECIFIED SYSTOLIC (CONGESTIVE) HEART FAILURE Active 1999-04 00:00: 00 ATRIOVENTRIC ULAR BLOCK, FIRST DEGREE Active 04-05 00:00: 00 ATHSCL HEART DISEASE OF [place] CORONARY ARTERY W/O ANG PCTRS Active 1999-04 [...] 200 mg tablet 06-12 00:00: 00 Yes [id number] NEEDED FOR MILD PAIN 1 tablet EVERY 6 HOURS 1 tablet EVERY 6 HOURS (route: oral) Med Classific ation: Analgesic , Anti-infl ammatory or Antipyret ic Flomax 0.4 mg capsule 06-12 00:00: 00 Yes [id number] BPH 1 capsule DAILY 1 capsule DAILY (route: oral) Med Classific ation: Genitouri nary Therapy hydroxyzine HCl 25 mg tablet 06-12 00:00: 00 Yes [id number] NEEDED FOR MOOD 1 tablet EVERY 8 HOURS 1 tablet EVERY 8 HOURS (route: oral) Med Classific ation: Central Nervous System Agents losartan 50 mg tablet 06-12 00:00: 00 Yes [id number] HIGH BLOOD PRESSURE 1 tablet DAILY 1 tablet DAILY (route: oral) Med Classific ation: Cardiovas cular Therapy Agents sertraline 50 mg tablet 06-12 00:00: 00 Yes [id number] MOOD 1 tablet DAILY 1 tablet DAILY (route: oral) Med Classific ation: Central Nervous System Agents Silvadene 1 % topical cream 06-12 00:00: 00 Yes [id number] WITH WOUND CARE AND NEEDED IF DRESSING BECOMED SOILED OR DISLODGED 1 inch DAILY 1 inch DAILY (route: topical) Med Classific ation: Dermatolo gical trazodone 50 mg tablet 3 00:00: 00 Yes [id number] SLEEP 0.5 tablet BEDTIME 0.5 tablet BEDTIME (route: oral) Med Classific ation: Central Nervous System Agents albuterol sulfate HFA 90 mcg/actuati on aerosol inhaler 06-26 00:00: 00 Yes [id number] URI 1 puff EVERY 4 HOURS 1 puff EVERY 4 HOURS (route: inhalation ) Med Classific ation: Respirato ry Therapy Agents benzonatate 100 mg capsule 06-26 00:00: 00 07-03 23:59 :00 No [id number] COUGH 100 mg 3 TIMES DAILY 100 mg 3 TIMES DAILY (route: oral) Med Classific ation: Respirato ry Therapy Agents levofloxaci n 500 mg tablet 06-26 00:00: 00 07-02 23:59 :00 No [id number] URI 500 mg DAILY 500 mg DAILY (route: oral) Med Classific ation: Anti-Infe ctive Agents albuterol sulfate HFA 90 mcg/actuati on aerosol inhaler 06-26 00:00: 00 Yes [id number] SHORTNESS OF BREATH 1 puff EVERY 4 HOURS 1 puff EVERY 4 HOURS (route: inhalation ) Med Classific ation: Respirato ry Therapy Agents benzonatate 100 mg capsule 06-26 00:00: 00 Yes [id number] COUGH 1 capsule 3 TIMES DAILY 1 capsule 3 TIMES DAILY (route: oral) Med Classific ation: Respirato ry Therapy Agents levofloxaci n 500 mg tablet 06-26 00:00: 00 Yes [id number] PNEUMONIA 1 tablet DAILY 1 tablet DAILY (route: oral) Med Classific ation: Anti-Infe ctive Agents Vital Signs Vital Name Observation Time Observation Value Commen ts Temperature 2024-07-24 12:56:00.000 98 [degF] Temperature 2024-07-20 10:34:10.000 98.2 [degF] Temperature 2024-07-20 09:47:22.000 97.5 [degF] Temperature 2024-07-20 09:09:00.000 98.3 [degF] Temperature 2024-07-19 11:13:00.000 97.8 [degF] Temperature 2024-07-18 09:50:00.000 97.6 [degF] Temperature 2024-07-14 09:20:00.000 98.4 [degF] Temperature 2024-07-13 10:54:15.000 97.6 [degF] Temperature 2024-07-11 10:52:00.000 97.3 [degF] Temperature 2024-07-10 13:09:00.000 97.3 [degF] Temperature 2024-07-06 13:49:01.000 97.7 [degF] Temperature 2024-07-06 11:14:00.000 97.9 [degF] Temperature 2024-07-05 13:55:00.000 97.7 [degF] Temperature 2024-07-04 10:10:00.000 97.6 [degF] Temperature 2024-06-29 12:34:35.000 97.4 [degF] Temperature 2024-06-28 12:41:00.000 97.6 [degF] Temperature 2024-06-28 11:04:00.000 97.7 [degF] Temperature 2024-06-28 10:00:00.000 96.8 [degF] Temperature 2024-06-21 13:23:00.000 97.3 [degF] Temperature 2024-06-20 16:04:00.000 97.2 [degF] Temperature 2024-06-20 10:36:00.000 97.2 [degF] Temperature 2024-06-15 14:53:00.000 97.1 [degF] Temperature 2024-06-13 10:46:00.000 98.4 [degF] Temperature 2024-06-13 09:50:00.000 98.4 [degF] Temperature 2024-06-12 13:35:00.000 97.2 [degF] BMI (%) 2024-06-12 13:21:44.000 21 kg/m2 Height 2024-06-12 13:21:20.000 72 [in_us] Pulse 2024-07-24 12:56:00.000 65 /min Pulse 2024-07-20 09:36:04.000 95 /min Pulse 2024-07-20 09:09:00.000 64 /min Pulse 2024-07-19 11:13:00.000 60 /min Pulse 2024-07-18 09:50:00.000 63 /min Pulse 2024-07-14 09:20:00.000 68 /min Pulse 2024-07-13 11:26:01.000 57 /min Pulse 2024-07-13 11:25:37.000 57 /min Pulse 2024-07-11 10:52:00.000 60 /min Pulse 2024-07-10 13:09:00.000 71 /min Pulse 2024-07-06 13:49:45.000 60 /min Pulse 2024-07-06 11:14:00.000 60 /min Pulse 2024-07-05 13:55:00.000 60 /min Pulse 2024-07-04 10:10:00.000 60 /min Pulse 2024-06-29 12:35:06.000 64 /min Pulse 2024-06-28 12:41:00.000 60 /min Pulse 2024-06-28 11:04:00.000 61 /min Pulse 2024-06-28 10:00:00.000 65 /min Pulse 2024-06-21 13:23:00.000 62 /min Pulse 2024-06-20 16:04:00.000 92 /min Pulse 2024-06-20 10:36:00.000 89 /min Pulse 2024-06-15 14:53:00.000 60 /min Pulse 2024-06-13 10:46:00.000 67 /min Pulse 2024-06-13 09:50:00.000 67 /min Pulse 2024-06-12 13:35:00.000 74 /min O2 Saturation (%) 2024-07-24 12:56:00.000 99 % O2 Saturation (%) 2024-07-20 09:09:00.000 96 % O2 Saturation (%) 2024-07-18 09:50:00.000 96 % O2 Saturation (%) 2024-07-14 09:20:00.000 96 % O2 Saturation (%) 2024-07-11 10:52:00.000 95 % O2 Saturation (%) 2024-07-10 13:09:00.000 99 % O2 Saturation (%) 2024-07-06 11:14:00.000 97 % O2 Saturation (%) 2024-07-05 13:55:00.000 96 % O2 Saturation (%) 2024-06-28 12:41:00.000 95 % O2 Saturation (%) 2024-06-28 10:00:00.000 96 % O2 Saturation (%) 2024-06-21 13:23:00.000 95 % O2 Saturation (%) 2024-06-20 10:36:00.000 98 % O2 Saturation (%) 2024-06-15 14:53:00.000 93 % O2 Saturation (%) 2024-06-13 10:46:00.000 90 % O2 Saturation (%) 2024-06-13 09:50:00.000 90 % O2 Saturation (%) 2024-06-12 13:35:00.000 98 % Respirations 2024-07-24 12:56:00.000 18 /min Respirations 2024-07-20 09:36:10.000 18 /min Respirations 2024-07-20 09:09:00.000 18 /min Respirations 2024-07-19 11:13:00.000 18 /min Respirations 2024-07-18 09:50:00.000 18 /min Respirations 2024-07-14 09:20:00.000 18 /min Respirations 2024-07-13 10:54:21.000 16 /min Respirations 2024-07-11 10:52:00.000 17 /min Respirations 2024-07-10 13:09:00.000 18 /min Respirations 2024-07-06 13:49:35.000 16 /min Respirations 2024-07-06 11:14:00.000 18 /min Respirations 2024-07-05 13:55:00.000 17 /min Respirations 2024-07-04 10:10:00.000 18 /min Respirations 2024-06-29 12:34:54.000 18 /min Respirations 2024-06-28 12:41:00.000 18 /min Respirations 2024-06-28 11:04:00.000 18 /min Respirations 2024-06-28 10:00:00.000 18 /min Respirations 2024-06-21 13:23:00.000 18 /min Respirations 2024-06-20 16:04:00.000 18 /min Respirations 2024-06-20 10:36:00.000 18 /min Respirations 2024-06-15 14:53:00.000 18 /min Respirations 2024-06-13 10:46:00.000 18 /min Respirations 2024-06-13 09:50:00.000 18 /min Respirations 2024-06-12 13:35:00.000 18 /min Weight (lbs) 2024-07-24 13:00:00.000 176 [lb_av] Weight (lbs) 2024-07-14 09:23:00.000 176 [lb_av] Weight (lbs) 2024-07-11 10:56:00.000 162 [lb_av] Weight (lbs) 2024-07-10 13:11:00.000 170 [lb_av] Weight (lbs) 2024-07-05 13:58:00.000 170 [lb_av] Weight (lbs) 2024-06-28 12:45:00.000 170 [lb_av] Weight (lbs) 2024-06-21 13:25:00.000 165 [lb_av] Weight (lbs) 2024-06-15 15:00:00.000 160 [lb_av] Weight (lbs) 2024-06-12 13:21:44.000 161 [lb_av] Systolic Blood Pressure 2024-07-24 12:56:00.000 114 mm [Hg] Systolic Blood Pressure 2024-07-20 10:34:38.000 130 mm [Hg] Systolic Blood Pressure 2024-07-20 09:35:52.000 130 mm [Hg] Systolic Blood Pressure 2024-07-20 09:09:00.000 126 mm [Hg] Systolic Blood Pressure 2024-07-19 11:13:00.000 130 mm [Hg] Systolic Blood Pressure 2024-07-18 09:50:00.000 104 mm [Hg] Systolic Blood Pressure 2024-07-14 09:20:00.000 124 mm [Hg] Systolic Blood Pressure 2024-07-13 10:53:58.000 110 mm [Hg] Systolic Blood Pressure 2024-07-11 10:52:00.000 122 mm [Hg] Systolic Blood Pressure 2024-07-10 13:09:00.000 130 mm [Hg] Systolic Blood Pressure 2024-07-06 13:49:26.000 106 mm [Hg] Systolic Blood Pressure 2024-07-06 11:14:00.000 96 mm[ Hg] Systolic Blood Pressure 2024-07-05 13:58:00.000 106 mm [Hg] Systolic Blood Pressure 2024-07-04 10:10:00.000 98 mm[ Hg] Systolic Blood Pressure 2024-06-29 12:34:48.000 118 mm [Hg] Systolic Blood Pressure 2024-06-28 12:41:00.000 106 mm [Hg] Systolic Blood Pressure 2024-06-28 11:04:00.000 100 mm [Hg] Systolic Blood Pressure 2024-06-28 10:00:00.000 118 mm [Hg] Systolic Blood Pressure 2024-06-21 13:23:00.000 124 mm [Hg] Systolic Blood Pressure 2024-06-20 16:04:00.000 98 mm[ Hg] Systolic Blood Pressure 2024-06-20 10:36:00.000 102 mm [Hg] Systolic Blood Pressure 2024-06-15 14:53:00.000 90 mm[ Hg] Systolic Blood Pressure 2024-06-13 10:46:00.000 108 mm [Hg] Systolic Blood Pressure 2024-06-13 09:50:00.000 108 mm [Hg] Systolic Blood Pressure 2024-06-12 13:35:00.000 102 mm [Hg] Diastolic Blood Pressure 2024-07-24 12:56:00.000 70 mm [Hg] Diastolic Blood Pressure 2024-07-20 10:34:38.000 62 mm [Hg] Diastolic Blood Pressure 2024-07-20 09:35:52.000 62 mm [Hg] Diastolic Blood Pressure 2024-07-20 09:09:00.000 68 mm [Hg] Diastolic Blood Pressure 2024-07-19 11:13:00.000 70 mm [Hg] Diastolic Blood Pressure 2024-07-18 09:50:00.000 58 mm [Hg] Diastolic Blood Pressure 2024-07-14 09:20:00.000 62 mm [Hg] Diastolic Blood Pressure 2024-07-13 10:53:58.000 60 mm [Hg] Diastolic Blood Pressure 2024-07-11 10:52:00.000 64 mm [Hg] Diastolic Blood Pressure 2024-07-10 13:09:00.000 67 mm [Hg] Diastolic Blood Pressure 2024-07-06 13:49:26.000 60 mm [Hg] Diastolic Blood Pressure 2024-07-06 11:14:00.000 62 mm [Hg] Diastolic Blood Pressure 2024-07-05 13:58:00.000 61 mm [Hg] Diastolic Blood Pressure 2024-07-04 10:10:00.000 52 mm [Hg] Diastolic Blood Pressure 2024-06-29 12:34:48.000 62 mm [Hg] Diastolic Blood Pressure 2024-06-28 12:41:00.000 60 mm [Hg] Diastolic Blood Pressure 2024-06-28 11:04:00.000 64 mm [Hg] Diastolic Blood Pressure 2024-06-28 10:00:00.000 58 mm [Hg] Diastolic Blood Pressure 2024-06-21 13:23:00.000 [...] CONSULTING PHYSICIANS RN TO OBSERVE AND ASSESS, AIRCRAFT ENGINE DISMANTLER/PULMONOLOGY TECHNICIAN TO OBSERVE FOR RISK FOR FALLS AND INSTRUCT IN FALL PREVENTION, HOME SAFETY, MEDICATION MANAGEMENT, INFECTION PREVENTION, AND NUTRITION MANAGEMENT. RN/AIRCRAFT ENGINE DISMANTLER/PULMONOLOGY TECHNICIAN NURSE MAY PERFORM O2 SATURATION LEVEL ON ADMISSION AND PRN FOR EVERY VISIT FOR RN TO ASSESS/AIRCRAFT ENGINE DISMANTLER TO OBSERVE PATIENT, WITH NOTIFICATION TO THE PHYSICIAN IF SATURATION IS 90% IN THE ABSENCE OF MORE SPECIFIC PARAMETERS FROM THE PHYSICIAN. AGENCY MAY PERFORM A RESUMPTION OF CARE VISIT FOLLOWING ANY HOSPITAL ADMISSION. RN/AIRCRAFT ENGINE DISMANTLER/PULMONOLOGY TECHNICIAN TO MONITOR CO-MORBID CONDITIONS LISTED ON THE [...] CONSULTING PHYSICIANS RN TO OBSERVE AND ASSESS, AIRCRAFT ENGINE DISMANTLER/PULMONOLOGY TECHNICIAN TO OBSERVE FOR RISK FOR FALLS AND INSTRUCT IN FALL PREVENTION, HOME SAFETY, MEDICATION MANAGEMENT, INFECTION PREVENTION, AND NUTRITION MANAGEMENT. RN/AIRCRAFT ENGINE DISMANTLER/PULMONOLOGY TECHNICIAN NURSE MAY PERFORM O2 SATURATION LEVEL ON ADMISSION AND PRN FOR EVERY VISIT FOR RN TO ASSESS/AIRCRAFT ENGINE DISMANTLER TO OBSERVE PATIENT, WITH NOTIFICATION TO THE PHYSICIAN IF SATURATION IS 90% IN THE ABSENCE OF MORE SPECIFIC PARAMETERS FROM THE PHYSICIAN. AGENCY MAY PERFORM A RESUMPTION OF CARE VISIT FOLLOWING ANY HOSPITAL ADMISSION. RN/AIRCRAFT ENGINE DISMANTLER/PULMONOLOGY TECHNICIAN TO MONITOR CO-MORBID CONDITIONS LISTED ON THE [...] TREATMENT ] Future Scheduled Test MEDICATION MANAGEMENT; RN/AIRCRAFT ENGINE DISMANTLER/PULMONOLOGY TECHNICIAN TO REVIEW MEDICATIONS FOR INTERACTIONS, EFFECTIVENESS OF DRUG THERAPY, AND SIGNS/SYMPTOMS OF ADVERSE REACTIONS. MAY INSTRUCT AND REINFORCE MEDICATION TEACHING RELATED TO THE USE OF MEDICATIONS, DOSAGE, FREQUENCY, PURPOSE, SIDE EFFECTS, AND TO REPORT COMPLICATIONS. [code = MEDICATION MANAGEMENT; RN/AIRCRAFT ENGINE DISMANTLER/PULMONOLOGY TECHNICIAN TO REVIEW MEDICATIONS FOR INTERACTIONS, EFFECTIVENESS OF DRUG THERAPY, AND SIGNS/SYMPTOMS OF ADVERSE REACTIONS. MAY INSTRUCT AND REINFORCE MEDICATION TEACHING RELATED TO THE USE OF MEDICATIONS, DOSAGE, FREQUENCY, PURPOSE, SIDE EFFECTS, AND TO REPORT COMPLICATIONS.] Future Scheduled Test RESPIRATOR Y SYSTEM MANAGEMENT; RN TO ASSESS AND TEACH, AIRCRAFT ENGINE DISMANTLER/PULMONOLOGY TECHNICIAN TO OBSERVE AND TEACH RELATED TO ALTERED RESPIRATORY STATUS TO MINIMIZE COMPLICATIONS AND REDUCE HOSPITALIZATION. [code = RESPIRATORY SYSTEM MANAGEMENT; RN TO ASSESS AND TEACH, AIRCRAFT ENGINE DISMANTLER/PULMONOLOGY TECHNICIAN TO OBSERVE AND TEACH RELATED TO ALTERED RESPIRATORY STATUS TO MINIMIZE COMPLICATIONS AND REDUCE HOSPITALIZATION. ] Future Scheduled Test COPD MANAG EMENT; RN TO ASSESS AND TEACH, AIRCRAFT ENGINE DISMANTLER/PULMONOLOGY TECHNICIAN TO OBSERVE AND TEACH SIGNS/SYMPTOMS OF COPD EXACERBATION AND PROVIDE EARLY INTERVENTIONS TO MINIMIZE RISK OF HOSPITALIZATION. RN/AIRCRAFT ENGINE DISMANTLER/PULMONOLOGY TECHNICIAN TO INSTRUCT ON SELF-CARE MANAGEMENT INCLUDING BREATHING TECHNIQUES, AIRWAY CLEARANCE, AND PROPER USE OF COPD MEDICATIONS. RN TO ASSESS AND TEACH, AIRCRAFT ENGINE DISMANTLER/PULMONOLOGY TECHNICIAN TO OBSERVE AND TEACH PATIENT/CAREGIVER ABILITY TO MONITOR AND RECORD VITAL SIGNS INCLUDING PULSE OXIMETRY AND BLOOD PRESSURE. PULSE OXIMETER AND BP MONITOR TO BE PROVIDED IF NEEDED [code = COPD MANAGEMENT; RN TO ASSESS AND TEACH, AIRCRAFT ENGINE DISMANTLER/PULMONOLOGY TECHNICIAN TO OBSERVE AND TEACH SIGNS/SYMPTOMS OF COPD EXACERBATION AND PROVIDE EARLY INTERVENTIONS TO MINIMIZE RISK OF HOSPITALIZATION. RN/AIRCRAFT ENGINE DISMANTLER/PULMONOLOGY TECHNICIAN TO INSTRUCT ON SELF-CARE MANAGEMENT INCLUDING BREATHING TECHNIQUES, AIRWAY CLEARANCE, AND PROPER USE OF COPD MEDICATIONS. RN TO ASSESS AND TEACH, AIRCRAFT ENGINE DISMANTLER/PULMONOLOGY TECHNICIAN TO OBSERVE AND TEACH PATIENT/CAREGIVER ABILITY TO MONITOR AND RECORD VITAL SIGNS INCLUDING PULSE OXIMETRY AND BLOOD PRESSURE. PULSE OXIMETER AND BP MONITOR TO BE PROVIDED IF NEEDED ] Future Scheduled Test PNEUMONIA MANAGEMENT; RN TO ASSESS AND TEACH, AIRCRAFT ENGINE DISMANTLER/PULMONOLOGY TECHNICIAN TO OBSERVE AND TEACH SIGNS OF PNEUMONIA EXACERBATION AND PROVIDE EARLY INTERVENTIONS TO MINIMIZE RISK OF HOSPITALIZATION. [code = PNEUMONIA MANAGEMENT; RN TO ASSESS AND TEACH, AIRCRAFT ENGINE DISMANTLER/PULMONOLOGY TECHNICIAN TO OBSERVE AND TEACH SIGNS OF PNEUMONIA EXACERBATION AND PROVIDE EARLY INTERVENTIONS TO MINIMIZE RISK OF HOSPITALIZATION. ] Future Scheduled Test FALL REDUC TION MANAGEMENT; RN TO ASSESS AND OBSERVE, AIRCRAFT ENGINE DISMANTLER/PULMONOLOGY TECHNICIAN TO OBSERVE FALL RISK FACTORS AND EDUCATE PATIENT/CAREGIVER ON STRATEGIES TO MINIMIZE THE RISK OF FALLING. [code = FALL REDUCTION MANAGEMENT; RN TO ASSESS AND OBSERVE, AIRCRAFT ENGINE DISMANTLER/PULMONOLOGY TECHNICIAN TO OBSERVE FALL RISK FACTORS AND EDUCATE PATIENT/CAREGIVER ON STRATEGIES TO MINIMIZE THE RISK OF FALLING.] Future Scheduled Test ANEMIA MAN AGEMENT; RN TO ASSESS AND TEACH, PULMONOLOGY TECHNICIAN/AIRCRAFT ENGINE DISMANTLER TO OBSERVE AND TEACH AND PROVIDE EDUCATION ON ANEMIA. [code = ANEMIA MANAGEMENT; RN TO ASSESS AND TEACH, PULMONOLOGY TECHNICIAN/AIRCRAFT ENGINE DISMANTLER TO OBSERVE AND TEACH AND PROVIDE EDUCATION ON ANEMIA.] Future Scheduled Test PAIN MANAG EMENT; RN TO ASSESS AND TEACH, PULMONOLOGY TECHNICIAN/AIRCRAFT ENGINE DISMANTLER TO OBSERVE AND TEACH AND PROVIDE EDUCATION ON PAIN MANAGEMENT TECHNIQUES. [code = PAIN MANAGEMENT; RN TO ASSESS AND TEACH, PULMONOLOGY TECHNICIAN/AIRCRAFT ENGINE DISMANTLER TO OBSERVE AND TEACH AND PROVIDE EDUCATION ON PAIN MANAGEMENT TECHNIQUES.] Future Scheduled Test RN/AIRCRAFT ENGINE DISMANTLER/PULMONOLOGY TECHNICIAN TO PERFORM/TEACH PATIENT/CAREGIVER WOUND CARE PRESSURE INJURY TO SACRAL AREA IRRIGATE/CLEANSE WITH WOUND CLEANSER/NORMAL SALINE. PAT DRY WITH 4X4 GAUZE, APPLY SILVADENE CREAM 1% AND CALCIUM ALGINATE MAY APPLY SKIN BARRIER TO PERIWOUND PRN TO PREVENT MACERATION AND PROTECT PERIWOUND COVER WITH FOAM DRESSING CHANGE DRESSING EVERY 2-3 TIMES A WEEK AND PRN FOR SOILAGE DRESSING [code = RN/AIRCRAFT ENGINE DISMANTLER/PULMONOLOGY TECHNICIAN TO PERFORM/TEACH PATIENT/CAREGIVER WOUND CARE PRESSURE INJURY [...] Scheduled Test PRN VISITS ; NUMBER OF RN/AIRCRAFT ENGINE DISMANTLER/PULMONOLOGY TECHNICIAN VISITS: 1 RN/AIRCRAFT ENGINE DISMANTLER/PULMONOLOGY TECHNICIAN TO PERFORM: WOUND MANAGEMENT FOR THE FOLLOWING REASONS: COMPLICATIONS [code = PRN VISITS; NUMBER OF RN/AIRCRAFT ENGINE DISMANTLER/PULMONOLOGY TECHNICIAN VISITS: 1 RN/AIRCRAFT ENGINE DISMANTLER/PULMONOLOGY TECHNICIAN TO PERFORM: WOUND MANAGEMENT FOR THE FOLLOWING REASONS: COMPLICATIONS ] Future Scheduled Test CANCER MAN AGEMENT; RN TO ASSESS AND TEACH, PULMONOLOGY TECHNICIAN/AIRCRAFT ENGINE DISMANTLER TO OBSERVE AND TEACH AND PROVIDE EDUCATION ON CANCER. [code = CANCER MANAGEMENT; RN TO ASSESS AND TEACH, PULMONOLOGY TECHNICIAN/AIRCRAFT ENGINE DISMANTLER TO OBSERVE AND TEACH AND PROVIDE EDUCATION ON CANCER.] Future Scheduled Test RISK FOR H OSPITALIZATION; RN TO ASSESS/TEACH, PULMONOLOGY TECHNICIAN/AIRCRAFT ENGINE DISMANTLER TO OBSERVE/TEACH PATIENT/CAREGIVER ON RISK FOR HOSPITALIZATION/EMERGENCY ROOM VISITS, TEACH SIGNS AND SYMPTOMS THAT PUT PATIENT AT RISK, WHEN TO NOTIFY NURSE/PHYSICIAN OF COMPLICATIONS/DECLINE, AND WHEN TO CALL 911. [code = RISK FOR HOSPITALIZATION; RN TO ASSESS/TEACH, PULMONOLOGY TECHNICIAN/AIRCRAFT ENGINE DISMANTLER TO OBSERVE/TEACH PATIENT/CAREGIVER ON RISK FOR HOSPITALIZATION/EMERGENCY ROOM VISITS, TEACH SIGNS AND SYMPTOMS THAT PUT PATIENT AT RISK, WHEN TO NOTIFY NURSE/PHYSICIAN OF COMPLICATIONS/DECLINE, AND WHEN TO CALL 911.] Future Scheduled Test CARDIOVASC ULAR SYSTEM; RN TO ASSESS/TEACH, AIRCRAFT ENGINE DISMANTLER/PULMONOLOGY TECHNICIAN TO OBSERVE/TEACH RELATED TO ALTERED CARDIOVASCULAR STATUS TO MINIMIZE COMPLICATIONS AND REDUCE HOSPITALIZATION. [code = CARDIOVASCULAR SYSTEM; RN TO ASSESS/TEACH, AIRCRAFT ENGINE DISMANTLER/PULMONOLOGY TECHNICIAN TO OBSERVE/TEACH RELATED TO ALTERED CARDIOVASCULAR STATUS TO MINIMIZE COMPLICATIONS AND REDUCE HOSPITALIZATION.] Future Scheduled Test HYPERTENSI ON MANAGEMENT; RN TO ASSESS AND TEACH, AIRCRAFT ENGINE DISMANTLER/PULMONOLOGY TECHNICIAN TO OBSERVE AND TEACH WARNING SIGNS AND SYMPTOMS TO AVOID HOSPITALIZATION. [code = HYPERTENSION MANAGEMENT; RN TO ASSESS AND TEACH, AIRCRAFT ENGINE DISMANTLER/PULMONOLOGY TECHNICIAN TO OBSERVE AND TEACH WARNING SIGNS AND SYMPTOMS TO AVOID HOSPITALIZATION.] Future Scheduled Test SKIN INTEG RITY RN TO ASSESS AND TEACH, AIRCRAFT ENGINE DISMANTLER/PULMONOLOGY TECHNICIAN TO OBSERVE AND TEACH INTEGUMENTARY STATUS TO IDENTIFY CHANGES AND INTERVENE TO MINIMIZE COMPLICATIONS. PROVIDE SKILLED TEACHING OF GENERAL WOUND AND SKIN CARE AND PREVENTION RELATED TO POTENTIAL FOR OR ACTUAL ALTERED SKIN INTEGRITY [code = SKIN INTEGRITY RN TO ASSESS AND TEACH, AIRCRAFT ENGINE DISMANTLER/PULMONOLOGY TECHNICIAN TO OBSERVE AND TEACH INTEGUMENTARY STATUS TO IDENTIFY CHANGES AND INTERVENE TO MINIMIZE COMPLICATIONS. PROVIDE SKILLED TEACHING OF GENERAL WOUND AND SKIN CARE AND PREVENTION RELATED TO POTENTIAL FOR OR ACTUAL ALTERED SKIN INTEGRITY ] Future Scheduled Test RN TO ASSE SS AND TEACH, AIRCRAFT ENGINE DISMANTLER/PULMONOLOGY TECHNICIAN TO OBSERVE AND TEACH INTEGUMENTARY STATUS RELATED [...] [code = RN TO ASSESS AND TEACH, AIRCRAFT ENGINE DISMANTLER/PULMONOLOGY TECHNICIAN TO OBSERVE AND TEACH INTEGUMENTARY STATUS RELATED [...] CULAR TESTING PROTOCOL UP TO 3 PRN RN/AIRCRAFT ENGINE DISMANTLER VISITS MAY BE PERFORMED FOR S/S OF WOUND INFECTION/DETERIORATION/STAGNATION. RN TO ASSESS, AIRCRAFT ENGINE DISMANTLER/PULMONOLOGY TECHNICIAN TO OBSERVE AND INITIATE PROTOCOL. RN/AIRCRAFT ENGINE DISMANTLER/PULMONOLOGY TECHNICIAN TO INSTRUCT PATIENT AND/OR CAREGIVER ON S/S OF WOUND INFECTION/DETERIORATION/STAGNATION TO REPORT TO NURSE IF NEW OR WORSENING SYMPTOMS. RN/AIRCRAFT ENGINE DISMANTLER/PULMONOLOGY TECHNICIAN TO OBTAIN MOLECULAR WOUND TESTING VIA SWAB COLLECTION PER POLICY. [id number] NOTIFY PROVIDER OF RESULTS AND OBTAIN FURTHER ORDERS. [code = WOUND MOLECULAR TESTING PROTOCOL UP TO 3 PRN RN/AIRCRAFT ENGINE DISMANTLER VISITS MAY BE PERFORMED FOR S/S OF WOUND INFECTION/DETERIORATION/STAGNATION. RN TO ASSESS, AIRCRAFT ENGINE DISMANTLER/PULMONOLOGY TECHNICIAN TO OBSERVE AND INITIATE PROTOCOL. RN/AIRCRAFT ENGINE DISMANTLER/PULMONOLOGY TECHNICIAN TO INSTRUCT PATIENT AND/OR CAREGIVER ON S/S OF WOUND INFECTION/DETERIORATION/STAGNATION TO REPORT TO NURSE IF NEW OR WORSENING SYMPTOMS. RN/AIRCRAFT ENGINE DISMANTLER/PULMONOLOGY TECHNICIAN TO OBTAIN MOLECULAR WOUND TESTING VIA SWAB COLLECTION PER POLICY. [id number] NOTIFY PROVIDER OF RESULTS AND OBTAIN FURTHER ORDERS.] Future Scheduled Test AGENCY MAY PERFORM A RESUMPTION OF CARE VISIT FOLLOWING ANY HOSPITAL ADMISSION. PT TO EVALUATE, OBSERVE / ASSESS, AND MONITOR, RURAL SERVICE ENGINEER TO OBSERVE AND MONITOR, PROVIDE SKILLED THERAPEUTIC INTERVENTION, ACTIVITY, EDUCATION, AND TRAINING TO ADDRESS; PT/RURAL SERVICE ENGINEER TO PROVIDE GAIT TRAINING FOR IMPROVED MOBILITY AND /OR TO NORMALIZE GAIT PATTERN NEUROMUSCULAR RE-EDUCATION / BALANCE / POSTURAL CONTROL (PT) THERAPEUTIC EXERCISES AND ESTABLISHING A HOME EXERCISE PROGRAM (PT/RURAL SERVICE ENGINEER) SIT TO/FROM STAND TRANSFERS (PT/RURAL SERVICE ENGINEER) PT / RURAL SERVICE ENGINEER TO MONITOR AND EDUCATE ON OXYGEN SATURATION DURING ADLS/IADLS, NOTIFY PHYSICIAN AND/OR THE RN CLINICAL SPARES SCHEDULER FOR PHYSICIAN NOTIFICATION AND IF O2 SATS BELOW PHYSICIAN ORDERED PARAMETERS AFTER 10 MIN OF REST PT / RURAL SERVICE ENGINEER MAY EDUCATE ON PAIN MANAGEMENT CLINICALLY INDICATED, INCLUDING NON-PHARMACOLOGICAL PAIN REDUCTION TECHNIQUES. PT / RURAL SERVICE ENGINEER TO INSTRUCT PATIENT/CAREGIVER ON RISK FOR HOSPITALIZATION/EMERGENCY ROOM VISITS, TEACH SIGNS AND SYMPTOMS THAT PUT PATIENT AT RISK, WHEN TO NOTIFY NURSE/PHYSICIAN OF COMPLICATIONS/DECLINE, AND WHEN TO CALL 911. PT / RURAL SERVICE ENGINEER TO EDUCATE ON HYPERTENSION SELF-MANAGEMENT PT TO ASSESS / RURAL SERVICE ENGINEER TO MONITOR CARDIO/RESPIRATORY SYSTEM; AND NOTIFY THE PHYSICIAN AND/OR THE RN CLINICAL SPARES SCHEDULER FOR PHYSICIAN NOTIFICATION FOR EARLY SIGNS AND SYMPTOMS OF EXACERBATION OR DETERIORATION. PT / RURAL SERVICE ENGINEER TO EDUCATE ON PNEUMONIA / ASPIRATION PNEUMONIA SELF-MANAGEMENT. PT/RURAL SERVICE ENGINEER TO IDENTIFY FALL RISK FACTORS; EDUCATE THE PATIENT/CAREGIVER ON WAYS TO REDUCE FALL RISK FACTORS AND ESTABLISH HOME EXERCISE PROGRAM TO MINIMIZE FALL RISK. MAY TEACH THE PATIENT FLOOR RECOVERY WHEN CLINICALLY APPROPRIATE PT / RURAL SERVICE ENGINEER TO OBSERVE FOR EARLY SIGNS AND SYMPTOMS OF DEPRESSION OR DEPRESSION GETTING WORSE AND TO EDUCATE ON HOW TO FIND HELP. PT / RURAL SERVICE ENGINEER TO EDUCATE ON HEART FAILURE SELF-MANAGEMENT PT / RURAL SERVICE ENGINEER TO EDUCATE ON COPD SELF-MANAGEMENT [code = AGENCY MAY PERFORM A RESUMPTION OF CARE VISIT FOLLOWING ANY HOSPITAL ADMISSION. PT TO EVALUATE, OBSERVE / ASSESS, AND MONITOR, RURAL SERVICE ENGINEER TO OBSERVE AND MONITOR, PROVIDE SKILLED THERAPEUTIC INTERVENTION, ACTIVITY, EDUCATION, AND TRAINING TO ADDRESS; PT/RURAL SERVICE ENGINEER TO PROVIDE GAIT TRAINING FOR IMPROVED MOBILITY AND /OR TO NORMALIZE GAIT PATTERN NEUROMUSCULAR RE-EDUCATION / BALANCE / POSTURAL CONTROL (PT) THERAPEUTIC EXERCISES AND ESTABLISHING A HOME EXERCISE PROGRAM (PT/RURAL SERVICE ENGINEER) SIT TO/FROM STAND TRANSFERS (PT/RURAL SERVICE ENGINEER) PT / RURAL SERVICE ENGINEER TO MONITOR AND EDUCATE ON OXYGEN SATURATION DURING ADLS/IADLS, NOTIFY PHYSICIAN AND/OR THE RN CLINICAL SPARES SCHEDULER FOR PHYSICIAN NOTIFICATION AND IF O2 SATS BELOW PHYSICIAN ORDERED PARAMETERS AFTER 10 MIN OF REST PT / RURAL SERVICE ENGINEER MAY EDUCATE ON PAIN MANAGEMENT CLINICALLY INDICATED, INCLUDING NON-PHARMACOLOGICAL PAIN REDUCTION TECHNIQUES. PT / RURAL SERVICE ENGINEER TO INSTRUCT PATIENT/CAREGIVER ON RISK FOR HOSPITALIZATION/EMERGENCY ROOM VISITS, TEACH SIGNS AND SYMPTOMS THAT PUT PATIENT AT RISK, WHEN TO NOTIFY NURSE/PHYSICIAN OF COMPLICATIONS/DECLINE, AND WHEN TO CALL 911. PT / RURAL SERVICE ENGINEER TO EDUCATE ON HYPERTENSION SELF-MANAGEMENT PT TO ASSESS / RURAL SERVICE ENGINEER TO MONITOR CARDIO/RESPIRATORY SYSTEM; AND NOTIFY THE PHYSICIAN AND/OR THE RN CLINICAL SPARES SCHEDULER FOR PHYSICIAN NOTIFICATION FOR EARLY SIGNS AND SYMPTOMS OF EXACERBATION OR DETERIORATION. PT / RURAL SERVICE ENGINEER TO EDUCATE ON PNEUMONIA / ASPIRATION PNEUMONIA SELF-MANAGEMENT. PT/RURAL SERVICE ENGINEER TO IDENTIFY FALL RISK FACTORS; EDUCATE THE PATIENT/CAREGIVER ON WAYS TO REDUCE FALL RISK FACTORS AND ESTABLISH HOME EXERCISE PROGRAM TO MINIMIZE FALL RISK. MAY TEACH THE PATIENT FLOOR RECOVERY WHEN CLINICALLY APPROPRIATE PT / RURAL SERVICE ENGINEER TO OBSERVE FOR EARLY SIGNS AND SYMPTOMS OF DEPRESSION OR DEPRESSION GETTING WORSE AND TO EDUCATE ON HOW TO FIND HELP. PT / RURAL SERVICE ENGINEER TO EDUCATE ON HEART FAILURE SELF-MANAGEMENT PT / RURAL SERVICE ENGINEER TO EDUCATE ON COPD SELF-MANAGEMENT ] Future Scheduled Test AGENCY MAY PERFORM A RESUMPTION OF CARE VISIT FOLLOWING ANY HOSPITAL ADMISSION. OT TO EVALUATE, OBSERVE / ASSESS, AND MONITOR, MICHI TO OBSERVE AND MONITOR, PROVIDE SKILLED THERAPEUTIC INTERVENTION, ACTIVITY, EDUCATION, AND TRAINING TO ADDRESS SAFETY AND INDEPENDENCE OF ADLS AND FUNCTIONAL TRANSFERS IN HOME ENVIRONMENT. BATHING/SHOWERING (OT/MICHI) ACTIVITIES OF DAILY LIVING (OT/MICHI) TOILET TRANSFER (OT/MICHI) BATH/SHOWER TRANSFER (OT/SOLE TACKER) THERAPEUTIC EXERCISE (OT/SOLE TACKER) ENERGY CONSERVATION/ACTIVITY DEMAND (OT/SOLE TACKER) OT/MICHI TO MONITOR AND EDUCATE ON OXYGEN SATURATION DURING ADLS/IADLS, NOTIFY PHYSICIAN AND/OR THE RN CLINICAL SPARES SCHEDULER FOR PHYSICIAN NOTIFICATION AND IF O2 SATS BELOW 90% AFTER 10 MIN OF REST. OT / SOLE TACKER TO IDENTIFY FALL RISK FACTORS; EDUCATE THE PATIENT/CAREGIVER ON WAYS TO REDUCE FALL RISK FACTORS AND ESTABLISH HOME EXERCISE PROGRAM TO MINIMIZE FALL RISK. MAY TEACH THE PATIENT FLOOR RECOVERY WHEN CLINICALLY APPROPRIATE. OT/MICHI TO EDUCATE ON HYPERTENSION SELF-MANAGEMENT OT/SOLE TACKER TO EDUCATE ON PNEUMONIA / ASPIRATION PNEUMONIA SELF-MANAGEMENT. HOME HEALTH AIDE SERVICE FOR ASSISTANCE WITH PERSONAL CARE, HYGIENE AND ACTIVITIES OF DAILY LIVING. OT TO ASSESS / SOLE TACKER TO MONITOR CARDIO/RESPIRATORY SYSTEM; AND NOTIFY THE PHYSICIAN AND/OR THE RN CLINICAL SPARES SCHEDULER FOR PHYSICIAN NOTIFICATION FOR EARLY SIGNS AND [...] ENVIRONMENT. BATHING/SHOWERING (OT/MICHI) ACTIVITIES OF DAILY LIVING (OT/MICHI) TOILET TRANSFER (OT/SOLE TACKER) BATH/SHOWER TRANSFER (OT/MICHI) THERAPEUTIC EXERCISE (OT/SOLE TACKER) ENERGY CONSERVATION/ACTIVITY DEMAND (OT/MICHI) OT/MICHI TO MONITOR AND EDUCATE ON OXYGEN SATURATION DURING ADLS/IADLS, NOTIFY PHYSICIAN AND/OR THE RN CLINICAL SPARES SCHEDULER FOR PHYSICIAN NOTIFICATION AND IF O2 SATS BELOW 90% AFTER 10 MIN OF REST. OT / SOLE TACKER TO IDENTIFY FALL RISK FACTORS; EDUCATE THE PATIENT/CAREGIVER ON WAYS TO REDUCE FALL RISK FACTORS AND ESTABLISH HOME EXERCISE PROGRAM TO MINIMIZE FALL RISK. MAY TEACH THE PATIENT FLOOR RECOVERY WHEN CLINICALLY APPROPRIATE. OT/MICHI TO EDUCATE ON HYPERTENSION SELF-MANAGEMENT OT/MICHI TO EDUCATE ON PNEUMONIA / ASPIRATION PNEUMONIA SELF-MANAGEMENT. HOME HEALTH AIDE SERVICE FOR ASSISTANCE WITH PERSONAL CARE, HYGIENE AND ACTIVITIES OF DAILY LIVING. OT TO ASSESS / MICHI TO MONITOR CARDIO/RESPIRATORY SYSTEM; AND NOTIFY THE PHYSICIAN AND/OR THE RN CLINICAL SPARES SCHEDULER FOR PHYSICIAN NOTIFICATION FOR EARLY SIGNS AND SYMPTOMS OF EXACERBATION OR DETERORATION OT/SOLE TACKER TO EDUCATE ON COPD SELF-MANAGEMENT ] Goal [...] End Date/Time Encounter Type Admission Type Attending [facility] Care Department Encounter ID Discharge Date Discharge Status Discharge Condition Discharge Reason Percent Goals Met 2024-06-12 00:00:00 2024-08-10 00:00:00 Outpatient NEW ADMISSION [facility] [id number] 36.36
--- OUTSIDE RECORDS SUMMARY | 2024-07-25 07:56 | XMS_ITS | Continuity of Care Document ---
Author Organization [facility] Address [address] [place] [address] [address] [place] [address] Phone Care Team Providers Care Commuter Train Operator Name Role Phone Woods OD, Camilo Unavailable Unavailable Procedures Procedure Date Eye Exam, New Patient Refraction Refraction Advance Directives Directive Yes / No Effective Date File Name No Information Encounters Encounter Description Practice Location Reason(s) For Visit Diagnoses Date Provider Providers Copied on Encounter [facility], [id number] [place] [address] [address], [place], [place], [id number], [place] tel:[phone] SEC [facility] No Information [phone] Woods OD Camilo. [address] , [address], [place], [address], [place]. tel:[phone] Family History Family Member Type Diagnosis Age At Onset No Information Payers Payer name Insurance type Covered republican ID Authoriza tion(s) Medicare [facility] [id number] [employer] [place] [id number] Social History Type Description Quantity Date Captured [...]
== END 2024-07-25 07:47 | disposition home or self-care (01) ==
PROVIDERS: PCP Emergency Medicine; Visit Provider Emergency Medicine
DX: R09.89 Other specified symptoms and signs involving the circulatory and respiratory systems (principal); J44.9 Chronic obstructive pulmonary disease, unspecified; J90 Pleural effusion, not elsewhere classified
CPT/HCPCS: 71046